=== PATIENT | female | born 1960 | race Two or more races ===

== ENCOUNTER 2017-05-09 21:20 | Inpatient (IN) | payer MEDICAID ==
[~2017-05-09] VITALS: Ht 157.5 cm; Wt 77.1 kg
--- NOTE | 2017-05-09 21:28 | Emergency Room Report ---
History of Present Illness General Chief Complaint: Abnormal Labs Source: Medical Record, EMS Present Illness HPI Is a 57-year-old female coming from a alf. She has a history of schizophrenia with history of respiratory failure status post tracheostomy. Also with a feeding tube. Her tracheostomy was removed earlier this week. Her G-tube was removed today. The reason was because she keeps pulling it out. She was sent in for abnormal labs. Her BUN was elevated and her sodium was very high. Unable to get any other history from the patient. No fever chills but no nausea no vomiting. Allergies: Coded Allergies: No Known Allergies (Unverified , 05/09/17) Patient History Past Medical History: see triage record, old chart reviewed, psych hx Past Surgical History: other Pertinent Family History: none Social History: Denies: smoking Now: No Immunizations: other Reviewed Nursing Documentation: PMH: Agreed, PSxH: Agreed Nursing Documentation-PMH Hx Hypertension: Yes Hx Diabetes: Yes History Of Psychiatric Problem: Yes - SCHIZO Review of Systems Eye: Denies: eye pain, blurred vision ENT: Denies: ear pain, nose congestion, throat swelling Respiratory: Denies: cough, shortness of breath Cardiovascular: Denies: chest pain, palpitations Gastrointestinal: Denies: abdominal pain, diarrhea, nausea, vomiting Musculoskeletal: Denies: back pain, joint pain Skin: Denies: rash Neurological: Denies: headache, numbness Endocrine: Denies: increased thirst, increased urine Hematologic/Lymphatic: Denies: easy bruising All Other Systems: negative except mentioned in HPI Physical Exam Vital Signs Date Time Temp Pulse Resp B/P (MAP) Pulse Ox O2 Delivery O2 Flow Rate FiO2 05/09/17 21:14 97.9 91 24 119/68 93 Room Air vitals normal Sp02 EP Interpretation: reviewed, normal General Appearance: well appearing, no apparent distress, alert Head: normocephalic, atraumatic Eyes: bilateral eye PERRL, bilateral eye EOMI ENT: hearing grossly normal, normal pharynx Neck: full range of motion, supple, no meningismus Respiratory: chest non-tender, lungs clear, normal breath sounds Cardiovascular #1: regular rate, rhythm, no murmur Gastrointestinal: normal bowel sounds, non tender, no mass, no organomegaly, no bruit, non-distended, other - G-tube site intact. Musculoskeletal: back normal, normal range of motion Neurologic: alert Psychiatric: mood/affect normal Skin: warm/dry Procedures Additional Procedure Procedure Narrative Procedure: G-tube placement Indication: Need for hydration and medication Description: Using a bougie, I dilated the opening. I placed a 20 Vietnamese G- tube without any difficulty. Patient tolerated procedure without a problem. X- ray with Gastrografin done to confirm placement. Medical Decision Making Diagnostic Impression: Primary Impression: Dehydration Additional Impressions: UTI (urinary tract infection) Qualified Codes: N30.00 - Acute cystitis without hematuria Failure to thrive in adult Proteinuria Qualified Codes: R80.9 - Proteinuria, unspecified Anemia Qualified Codes: D64.9 - Anemia, unspecified Gastrostomy tube dysfunction ER Course Present with dehydration. I replaced the G-tube so she can get free fluid. No evidence of obstruction. She does have urinary tract infection. Antibiotic started. Will admit. Lab Results Impression labs with elevated sodium Other X-Ray Diagnostic Results Other X-Ray Diagnostic Results : X-Ray ordered: KUB # of Views/Limited Vs Complete: 1 View Indication: Other - G-tube placement EP Interpretation: Yes Interpretation: no dislocation, no soft tissue swelling, nonspecific bowel gas, other - No extravasation. Impression: Other - G-tube in good position. Electronically Signed by: Electronically signed by Pramod Alcocer MD Last Vital Signs Date Time Temp Pulse Resp B/P (MAP) Pulse Ox O2 Delivery O2 Flow Rate FiO2 05/09/17 21:14 97.9 91 24 119/68 93 Room Air Status: improved Disposition: ADMITTED INPATIENT Condition: Serious PRAMOD ALCOCER M.D. May 09, 2017 21:28
[2017-05-09 21:41] VITALS: BP 105/61
[2017-05-09 21:57] LABS: LYMPHOCYTES % (AUTO) 15.1 % (20.0-45.0); MEAN CORPUSCULAR HEMOGLOBIN 29.5 PG (27.0-31.0); MEAN CORPUSCULAR HGB CONC 28.2 G/DL (32.0-36.0); MEAN CORPUSCULAR VOLUME 105 FL (80-99); MEAN PLATELET VOLUME 9.4 FL (6.5-10.1); MONOCYTES % (AUTO) 9.9 % (1.0-10.0); PLATELET COUNT 348 K/UL (150-450); RED BLOOD COUNT 3.94 M/UL (4.20-5.40); RED CELL DISTRIBUTION WIDTH 18.2 % (11.6-14.8); WHITE BLOOD COUNT 6.7 K/UL (4.8-10.8)
[2017-05-09 22:17] LABS: ANION GAP 6 mmol/L (5-15); CALCIUM 10.2 MG/DL (8.5-10.1); CARBON DIOXIDE 32 MMOL/L (21-32); CHLORIDE 122 MMOL/L (98-107); CREATININE 1.4 MG/DL (0.55-1.30); GLOMERULAR FILTRATION RATE 38.5 mL/min (>60); SODIUM 159 MMOL/L (136-145)
[2017-05-09] MEDS ORDERED: COGENTIN1 MG ORAL (22:18)
[2017-05-09] MEDS ORDERED: EPOGEN4000 UNIT/ SUBQ (22:18)
[2017-05-09] MEDS ORDERED: ATIVAN1 MG ORAL (22:18)
[2017-05-09] MEDS ORDERED: DULCOLAX10 MG RC (22:18)
[2017-05-09 22:47] LABS: KETONES,URINE NEGATIVE (NEGATIVE); LEUKOCYTE ESTERASE ,URINE 3+ (NEGATIVE); NITRITE,URINE POSITIVE (NEGATIVE); PH,URINE 7 (4.5-8.0); PROTEIN,URINE 2+ (NEGATIVE); UROBILINOGEN,URINE NORMAL MG/DL (0.0-1.0)
[2017-05-09 22:50] LABS: AMORPHOUS SEDIMENT,UR FEW /LPF; APPEARANCE,URINE SLIGHTLY CLOUDY; BACTERIA,URINE MODERATE /HPF; SQUAMOUS EPITHELIAL CELL,UR FEW /LPF (NONE/OCC)
[2017-05-09] MEDS ORDERED: cefTRIAXone 1 GM in NS 55 ML IVPB ONE (23:00)
[2017-05-09] MEDS ORDERED: UTI-STAT L3875 MG/31 PO (23:10)
[2017-05-09] MEDS ORDERED: MILK OF MA2400 MG/10 ORAL (23:10)
[2017-05-09] MEDS ORDERED: MULTI-DELYN237 ML PO (23:10)
[2017-05-09] MEDS ORDERED: POTASSIUM CHLO20 ME1 ORAL (23:10)
[2017-05-09] MEDS ORDERED: HALDOL5 MG/1 ML IM (23:10)
[2017-05-09] MEDS ORDERED: OMEPRAZOLE20 M2 ORAL (23:10)
[2017-05-09] MEDS ORDERED: VITAMIN C500 M1 ORAL (23:10)
[2017-05-09] MEDS ORDERED: LITHIUM CARBON300 MG ORAL (23:10)
[2017-05-09] MEDS ORDERED: LACTULOSE20 GM/301 ORAL (23:10)
[2017-05-09] MEDS ORDERED: ACETAMINOP160 MG/5 M ORAL (23:10)
[2017-05-09] MEDS ORDERED: METOPROLOL TART50 MG ORAL (23:10)
[2017-05-09] MEDS ORDERED: SEROQUEL200 MG ORAL (23:10)
[2017-05-09] MEDS ORDERED: FLEET ENEMA133 ML RECTAL (23:10)
[2017-05-09] MEDS ORDERED: ZINC SULFATE220 M1 ORAL (23:10)
[2017-05-09 23:16] VITALS: BP 116/59
[2017-05-09 23:40] VITALS: BP 125/86
[2017-05-09] MEDS ORDERED: D5 1/2NS 1,000 ML IV SCH (23:48)
[2017-05-10] MEDS ORDERED: LORazepam Inj 2mg/ml 1ml IV PRN
[2017-05-10 04:00] VITALS: BP 140/77
[2017-05-10] MEDS ORDERED: Piperacillin/Tazobactam 3.375 GM in NS 110 ML IVPB SCH (06:00)
[2017-05-10] MEDS: NovoLOG Insulin Flexpen SUBQ SCH ×4 (06:18→20:55)
[2017-05-10] MEDS ORDERED: Zosyn 3.375gm inj ONE (06:20)
[2017-05-10 08:05] LABS: BASOPHILS % (AUTO) 1.1 % (0.0-2.0); EOSINOPHILS % (AUTO) 0.1 % (0.0-3.0); LYMPHOCYTES % (AUTO) 16.4 % (20.0-45.0); MEAN CORPUSCULAR HEMOGLOBIN 30.3 PG (27.0-31.0); MEAN CORPUSCULAR HGB CONC 29.3 G/DL (32.0-36.0); MEAN CORPUSCULAR VOLUME 103 FL (80-99); MEAN PLATELET VOLUME 9.1 FL (6.5-10.1); MONOCYTES % (AUTO) 9.4 % (1.0-10.0); PLATELET COUNT 325 K/UL (150-450); RED BLOOD COUNT 3.92 M/UL (4.20-5.40); RED CELL DISTRIBUTION WIDTH 18.6 % (11.6-14.8); WHITE BLOOD COUNT 7.2 K/UL (4.8-10.8)
[2017-05-10 08:29] LABS: ALANINE AMINOTRANSFERASE 43 U/L (12-78); ALBUMIN/GLOBULIN RATIO 0.6 (1.0-2.7); ANION GAP 8 mmol/L (5-15); ASPARTATE AMINO TRANSFERASE 12 U/L (15-37); CALCIUM 9.7 MG/DL (8.5-10.1); CARBON DIOXIDE 28 MMOL/L (21-32); CHLORIDE 127 MMOL/L (98-107); CREATININE 1.1 MG/DL (0.55-1.30); GLOMERULAR FILTRATION RATE 50.8 mL/min (>60); POTASSIUM 3.7 MMOL/L (3.5-5.1); TOTAL PROTEIN 7.3 G/DL (6.4-8.2)
[2017-05-10 08:33] LABS: SODIUM 163 MMOL/L (136-145)
[2017-05-10 08:36] VITALS: BP 139/76
[2017-05-10] MEDS: QUEtiapine 200mg tab ORAL SCH ×3 (09:09→17:10)
[2017-05-10] MEDS: Heparin 5000 units/ml inj SUBQ SCH ×2 (09:12→21:01)
--- NOTE | 2017-05-10 10:51 | Diagnostic Imaging Report ---
Indication: Gastrostomy tract Comparison: None Single view of the abdomen obtained Findings: Gastrostomy is in good position within the body the stomach. Contrast noted within the stomach and proximal small bowel. Previously administered contrast noted in the colon. Impression: Appropriate gastrostomy position. No leak
--- NOTE | 2017-05-10 11:58 | History and Physical ---
History of Present Illness General Date patient seen: May 10, 2017 Reason for Hospitalization: Abnormal Labs Present Illness HPI 57-year-old female with hx of s/p recent tracheostomy, PEG, residential resident, schizophrenia, feeding tube. Her tracheostomy was removed earlier this week. Her G-tube was removed as well . The reason was because she keeps pulling it out. She was sent in for abnormal labs. Her BUN was elevated and her sodium was very high. Pt is admitted because of acute renal failure. ER physician put the feeding tube in ER and she is admitted for treatment of her ATN. Allergies: Coded Allergies: No Known Allergies (Unverified , 05/09/17) Medication History Scheduled Ascorbic Acid* (Vitamin C*), 500 MG ORAL DAILY, (Reported) Benztropine Mesylate (Cogentin 1mg*), 1 MG ORAL EVERY 12 HOURS, (Reported) Cran/Vitc/Mannose/Inulin/Brom (Uti-Stat Liquid), 30 ML PO DAILY, (Reported) Epoetin Bogdan (Epogen), 4,000 UNIT SUBQ --, (Reported) Haloperidol Lactate (Haldol), 5 MG IM EVERY 8 HOURS, (Reported) [place] Carbonate* ([place]*), 300 MG ORAL BID, (Reported) Metoprolol Tartrate* (Metoprolol Tartrate*), 50 MG ORAL EVERY 12 HOURS, ( Reported) Multivitamin Liquid* (Multi-Delyn*), 15 ML PO DAILY, (Reported) Omeprazole (Omeprazole), 20 MG ORAL DAILY, (Reported) Potassium Chloride* (K-Dur*), 20 MEQ ORAL DAILY, (Reported) Quetiapine Fumarate* (Seroquel*), 200 MG ORAL THREE TIMES A DAY, (Reported) Zinc Sulfate (Zinc Sulfate*), 220 MG ORAL DAILY, (Reported) Scheduled PRN Acetaminophen 160MG/5ML* (Acetaminophen*), 20 ML ORAL EVERY 4 HOURS PRN for fever, (Reported) Bisacodyl (Dulcolax), 10 MG RC for Constipation, (Reported) Lactulose (Lactulose*), 30 ML ORAL BID PRN for Constipation, (Reported) Lorazepam* (Ativan*), 1 MG ORAL EVERY 6 HOURS PRN for For Anxiety, (Reported) Magnesium Hydroxide* (Milk Of Magnesia*), 30 ML ORAL BEDTIME PRN for Constipation, (Reported) Na Phos,M-B/Na Phos,Di-Ba* (Fleet Enema*), 133 ML RECTAL DAILY PRN for Constipation, (Reported) Patient History Healthcare decision maker Resuscitation status Full Code Advanced Directive on File Past Medical/Surgical History Past Medical/Surgical History: (1) Gastrostomy tube dysfunction Review of Systems Constitutional: Reports: no symptoms Eye: Reports: discharge ENT: Reports: no symptoms Respiratory: Reports: no symptoms Physical Exam General Appearance: WD/WN Lines, tubes and drains: peripheral, central line HEENT: normocephalic, atraumatic Neck: non-tender, normal alignment Respiratory/Chest: chest wall non-tender, lungs clear Cardiovascular/Chest: normal peripheral pulses, normal rate Abdomen: normal bowel sounds Genitourinary/Rectal: normal genital exam Extremities: normal range of motion 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 Last 24 Hour Vital Signs Date Time Temp Pulse Resp B/P (MAP) Pulse Ox O2 Delivery O2 Flow Rate FiO2 05/10/17 08:36 98.3 89 19 139/76 94 Room Air 05/10/17 04:00 97.7 96 19 140/77 96 Room Air 05/09/17 23:40 98.0 89 18 125/86 95 Room Air 05/09/17 23:22 97.9 84 20 116/59 98 Room Air 05/09/17 23:16 97.9 84 20 116/59 98 Room Air 05/09/17 21:41 97.9 88 24 105/61 98 Room Air 05/09/17 21:14 97.9 91 24 119/68 93 Room Air Laboratory Tests Test 05/09/17 21:30 05/09/17 22:28 05/10/17 07:45 White Blood Count 6.7 K/UL (4.8-10.8) 7.2 K/UL (4.8-10.8) Red Blood Count 3.94 M/UL (4.20-5.40) L 3.92 M/UL (4.20-5.40) L Hemoglobin 11.6 G/DL (12.0-16.0) L 11.9 G/DL (12.0-16.0) L Hematocrit 41.1 % (37.0-47.0) 40.5 % (37.0-47.0) Mean Corpuscular Volume 105 FL (80-99) H 103 FL (80-99) H Mean Corpuscular Hemoglobin 29.5 PG (27.0-31.0) 30.3 PG (27.0-31.0) Mean Corpuscular Hemoglobin Concent 28.2 G/DL (32.0-36.0) L 29.3 G/DL (32.0-36.0) L Red Cell Distribution Width 18.2 % (11.6-14.8) H 18.6 % (11.6-14.8) H Platelet Count 348 K/UL (150-450) 325 K/UL (150-450) Mean Platelet Volume 9.4 FL (6.5-10.1) 9.1 FL (6.5-10.1) Neutrophils (%) (Auto) 74.0 % (45.0-75.0) 73.0 % (45.0-75.0) Lymphocytes (%) (Auto) 15.1 % (20.0-45.0) L 16.4 % (20.0-45.0) L Monocytes (%) (Auto) 9.9 % (1.0-10.0) 9.4 % (1.0-10.0) Eosinophils (%) (Auto) 0.0 % (0.0-3.0) 0.1 % (0.0-3.0) Basophils (%) (Auto) 1.0 % (0.0-2.0) 1.1 % (0.0-2.0) Sodium Level 159 MMOL/L (136-145) H 163 MMOL/L (136-145) *H Potassium Level 4.0 MMOL/L (3.5-5.1) 3.7 MMOL/L (3.5-5.1) Chloride Level 122 MMOL/L (98-107) H 127 MMOL/L (98-107) H Carbon Dioxide Level 32 MMOL/L (21-32) 28 MMOL/L (21-32) Anion Gap 6 mmol/L (5-15) 8 mmol/L (5-15) Blood Urea Nitrogen 49 mg/dL (7-18) H 34 mg/dL (7-18) H Creatinine 1.4 MG/DL (0.55-1.30) H 1.1 MG/DL (0.55-1.30) Estimat Glomerular Filtration Rate 38.5 mL/min (>60) 50.8 mL/min (>60) Glucose Level 115 MG/DL (74-106) H 110 MG/DL (74-106) H Calcium Level 10.2 MG/DL (8.5-10.1) H 9.7 MG/DL (8.5-10.1) Urine Color Yellow Urine Appearance Slightly cloudy Urine pH 7 (4.5-8.0) Urine Specific [place] 1.010 (1.005-1.035) Urine Protein 2+ (NEGATIVE) H Urine Glucose (UA) Negative (NEGATIVE) Urine Ketones Negative (NEGATIVE) Urine Occult Blood 2+ (NEGATIVE) H Urine Nitrite Positive (NEGATIVE) H Urine Bilirubin Negative (NEGATIVE) Urine Urobilinogen Normal MG/DL (0.0-1.0) Urine Leukocyte Esterase 3+ (NEGATIVE) H Urine RBC 5-10 /HPF (0 - 2) H Urine WBC 10-15 /HPF (0 - 2) H Urine Squamous Epithelial Cells Few /LPF (NONE/OCC) Urine Amorphous Sediment Few /LPF (NONE) H Urine Bacteria Moderate /HPF (NONE) H Hemoglobin A1c 4.6 % (4.3-6.0) Total Bilirubin 0.4 MG/DL (0.2-1.0) Aspartate Amino Transf (AST/SGOT) 12 U/L (15-37) L Alanine Aminotransferase (ALT/SGPT) 43 U/L (12-78) Alkaline Phosphatase 142 U/L (46-116) H Total Protein 7.3 G/DL (6.4-8.2) Albumin 2.7 G/DL (3.4-5.0) L Globulin 4.6 g/dL Albumin/Globulin Ratio 0.6 (1.0-2.7) L Height (Feet): 5 Height (Inches): 2.00 Weight (Pounds): 170 Medications Current Medications Medications (Trade) Dose Ordered Sig/Robert Route PRN Reason Start Time Stop Time Status Last Admin Dose Admin Dextrose (Dextrose 50%) STAT PRN IV Hypoglycemia 05/10/17 02:30 06/09/17 02:29 Dextrose/Sodium Chloride 1,000 ml @ 150 mls/hr Q6H40M IV 05/10/17 23:48 06/09/17 23:47 05/10/17 03:00 Heparin Sodium (Porcine) (Heparin 5000 units/ml) 5,000 units EVERY 12 HOURS SUBQ 05/10/17 09:00 06/09/17 08:59 05/10/17 09:12 Insulin Aspart (NovoLOG) BEFORE MEALS AND HS SUBQ 05/10/17 06:30 06/09/17 06:29 [place] Carbonate ([place] Carbonate) 300 mg BID ORAL 05/10/17 09:00 06/09/17 08:59 05/10/17 09:09 Lorazepam (Ativan 2mg/ml 1ml) 0.5 mg Q4H PRN IV For Anxiety 05/10/17 00:00 05/17/17 00:00 Ondansetron HCl (Zofran) 4 mg Q6H PRN IVP Nausea & Vomiting 05/10/17 00:00 06/09/17 00:00 Piperacillin/ Tazobactam/ Dextrose 50 ml @ 12.5 mls/hr EVERY 8 HOURS IVPB 05/10/17 14:00 05/15/17 13:59 Quetiapine Fumarate (SEROquel) 200 mg THREE TIMES A DAY ORAL 05/10/17 09:00 06/09/17 08:59 05/10/17 09:09 Assessment/Plan Problem List: (1) ATN (acute tubular necrosis) ICD Codes: N17.0 - Acute kidney failure with tubular necrosis SNOMED: 07733251 (2) Schizo-affective schizophrenia ICD Codes: F25.0 - Schizoaffective disorder, bipolar type SNOMED: 064188487 (3) Gastrostomy tube dysfunction ICD Codes: K94.23 - Gastrostomy malfunction SNOMED: 868381658 (4) UTI (urinary tract infection) ICD Codes: N39.0 - Urinary tract infection, site not specified SNOMED: 34682776 Qualifiers: Qualified Codes: N30.00 - Acute cystitis without hematuria Assessment/Plan IV fluids Renal evaluation check electrolytes GI and psych evaluation ANYI ALEGRIA May 10, 2017 11:58
[2017-05-10 12:00] VITALS: BP 136/78
--- NOTE | 2017-05-10 13:07 | GI Initial Consult Note ---
History of Present Illness General Date patient seen: May 10, 2017 Time patient seen: 10:00 Reason for Hospitalization: Abnormal Labs Referring physician: ANYI JEWELL Reason for Consultation: GT CHANGE Present Illness HPI Is a 57-year-old female coming from a [facility]. She has a history of schizophrenia with history of respiratory failure status post tracheostomy. Also with a feeding tube. Her tracheostomy was removed earlier this week. Her G-tube was removed today. The reason was because she keeps pulling it out. She was sent in for abnormal labs. Her BUN was elevated and her sodium was very high. Unable to get any other history from the patient. No fever chills but no nausea no vomiting. GI consulted for GT change. HPI as noted above. ROS limited, Pt seen on floor , awake alert with no active s/sx of N/V/D. Noted GT changed in ER confirmed with KUB. She presents today with mild anemia, hypernatremia and dehydration. Unknown history of colonoscopies. Home Meds Reported Medications Haloperidol Lactate (HALDOL) 5 Mg/1 Ml Ampul, 5 MG IM EVERY 8 HOURS, AMP 05/09/17 Quetiapine Fumarate* (SEROQUEL*) 200 Mg Tablet, 200 MG ORAL THREE TIMES A DAY, TAB 05/09/17 Zinc Sulfate (ZINC SULFATE*) 220 Mg Capsule, 220 MG ORAL DAILY, CAP 0 Refills 05/09/17 Ascorbic Acid* (VITAMIN C*) 500 Mg Tablet, 500 MG ORAL DAILY, TAB 0 Refills 05/09/17 Cran/Vitc/Mannose/Inulin/Brom (UTI-STAT LIQUID) 3,875 Mg/30 Ml Liquid, 30 ML PO DAILY, ML 05/09/17 Acetaminophen 160MG/5ML* (ACETAMINOPHEN*) 160 Mg/5 Ml Elixir, 20 ML ORAL EVERY 4 HOURS Y for fever, ML 0 Refills 05/09/17 Potassium Chloride* (K-DUR*) 20 Meq Tab.er.prt, 20 MEQ ORAL DAILY, TAB 0 Refills 05/09/17 Omeprazole (OMEPRAZOLE) 20 Mg Capsule.dr, 20 MG ORAL DAILY, CAP 05/09/17 Multivitamin Liquid* (MULTI-DELYN*) 237 Ml Liquid, 15 ML PO DAILY, ML 05/09/17 Magnesium Hydroxide* (MILK OF MAGNESIA*) 2,400 Mg/10 Ml Oral.susp, 30 ML ORAL BEDTIME Y for Constipation, ML 05/09/17 Metoprolol Tartrate* (METOPROLOL TARTRATE*) 50 Mg Tablet, 50 MG ORAL EVERY 12 HOURS, TAB 0 Refills 05/09/17 [place] Carbonate* (LITHIUM*) 300 Mg Capsule, 300 MG ORAL BID, CAP 0 Refills 05/09/17 Lactulose (LACTULOSE*) 20 Gm/30 Ml Solution, 30 ML ORAL BID Y for Constipation, ML 0 Refills 05/09/17 Na Phos,M-B/Na Phos,Di-Ba* (FLEET ENEMA*) 133 Ml Enema, 133 ML RECTAL DAILY Y for Constipation, ML 0 Refills 05/09/17 Epoetin Bogdan (Epogen) 4,000 Unit/1 Ml Vial, 4000 UNIT SUBQ M-W-, VIAL 05/09/17 Bisacodyl (DULCOLAX) 10 Mg Supp.rect, 10 MG RC Y for Constipation, SUPP 05/09/17 Benztropine Mesylate (Cogentin 1mg*) 1 Mg Tablet, 1 MG ORAL EVERY 12 HOURS, TAB 05/09/17 Lorazepam* (ATIVAN*) 1 Mg Tablet, 1 MG ORAL EVERY 6 HOURS Y for For Anxiety, TAB 05/09/17 Med list reviewed/reconciled: Yes Allergies: Coded Allergies: No Known Allergies (Unverified , 05/09/17) Patient History History Provided By: Medical Record PMH Narrative Past Medical History: see triage record, old chart reviewed, psych hx Past Surgical History: other Pertinent Family History: none Social History: Denies: smoking Now: No Immunizations: other Reviewed Nursing Documentation: PMH: Agreed, PSxH: Agreed Nursing Documentation-PMH Hx Hypertension: Yes Hx Diabetes: Yes History Of Psychiatric Problem: Yes - SCHIZO Review of Systems All Other Systems: limited Physical Exam Vital Signs Date Time Temp Pulse Resp B/P (MAP) Pulse Ox O2 Delivery O2 Flow Rate FiO2 05/09/17 21:14 97.9 91 24 119/68 93 Room Air Sp02 EP Interpretation: reviewed, normal Labs Laboratory Tests Test 05/09/17 21:30 05/09/17 22:28 05/10/17 07:45 White Blood Count 6.7 K/UL (4.8-10.8) 7.2 K/UL (4.8-10.8) Red Blood Count 3.94 M/UL (4.20-5.40) L 3.92 M/UL (4.20-5.40) L Hemoglobin 11.6 G/DL (12.0-16.0) L 11.9 G/DL (12.0-16.0) L Hematocrit 41.1 % (37.0-47.0) 40.5 % (37.0-47.0) Mean Corpuscular Volume 105 FL (80-99) H 103 FL (80-99) H Mean Corpuscular Hemoglobin 29.5 PG (27.0-31.0) 30.3 PG (27.0-31.0) Mean Corpuscular Hemoglobin Concent 28.2 G/DL (32.0-36.0) L 29.3 G/DL (32.0-36.0) L Red Cell Distribution Width 18.2 % (11.6-14.8) H 18.6 % (11.6-14.8) H Platelet Count 348 K/UL (150-450) 325 K/UL (150-450) Mean Platelet Volume 9.4 FL (6.5-10.1) 9.1 FL (6.5-10.1) Neutrophils (%) (Auto) 74.0 % (45.0-75.0) 73.0 % (45.0-75.0) Lymphocytes (%) (Auto) 15.1 % (20.0-45.0) L 16.4 % (20.0-45.0) L Monocytes (%) (Auto) 9.9 % (1.0-10.0) 9.4 % (1.0-10.0) Eosinophils (%) (Auto) 0.0 % (0.0-3.0) 0.1 % (0.0-3.0) Basophils (%) (Auto) 1.0 % (0.0-2.0) 1.1 % (0.0-2.0) Sodium Level 159 MMOL/L (136-145) H 163 MMOL/L (136-145) *H Potassium Level 4.0 MMOL/L (3.5-5.1) 3.7 MMOL/L (3.5-5.1) Chloride Level 122 MMOL/L (98-107) H 127 MMOL/L (98-107) H Carbon Dioxide Level 32 MMOL/L (21-32) 28 MMOL/L (21-32) Anion Gap 6 mmol/L (5-15) 8 mmol/L (5-15) Blood Urea Nitrogen 49 mg/dL (7-18) H 34 mg/dL (7-18) H Creatinine 1.4 MG/DL (0.55-1.30) H 1.1 MG/DL (0.55-1.30) Estimat Glomerular Filtration Rate 38.5 mL/min (>60) 50.8 mL/min (>60) Glucose Level 115 MG/DL (74-106) H 110 MG/DL (74-106) H Calcium Level 10.2 MG/DL (8.5-10.1) H 9.7 MG/DL (8.5-10.1) Urine Color Yellow Urine Appearance Slightly cloudy Urine pH 7 (4.5-8.0) Urine Specific [place] 1.010 (1.005-1.035) Urine Protein 2+ (NEGATIVE) H Urine Glucose (UA) Negative (NEGATIVE) Urine Ketones Negative (NEGATIVE) Urine Occult Blood 2+ (NEGATIVE) H Urine Nitrite Positive (NEGATIVE) H Urine Bilirubin Negative (NEGATIVE) Urine Urobilinogen Normal MG/DL (0.0-1.0) Urine Leukocyte Esterase 3+ (NEGATIVE) H Urine RBC 5-10 /HPF (0 - 2) H Urine WBC 10-15 /HPF (0 - 2) H Urine Squamous Epithelial Cells Few /LPF (NONE/OCC) Urine Amorphous Sediment Few /LPF (NONE) H Urine Bacteria Moderate /HPF (NONE) H Hemoglobin A1c 4.6 % (4.3-6.0) Total Bilirubin 0.4 MG/DL (0.2-1.0) Aspartate Amino Transf (AST/SGOT) 12 U/L (15-37) L Alanine Aminotransferase (ALT/SGPT) 43 U/L (12-78) Alkaline Phosphatase 142 U/L (46-116) H Total Protein 7.3 G/DL (6.4-8.2) Albumin 2.7 G/DL (3.4-5.0) L Globulin 4.6 g/dL Albumin/Globulin Ratio 0.6 (1.0-2.7) L General Appearance: no apparent distress, alert Head: normocephalic EENT: PERRL/EOMI, normal ENT inspection Neck: supple Respiratory: normal breath sounds, no respiratory distress Cardiovascular: normal rate Gastrointestinal: normal inspection, non tender, soft, normal bowel sounds, non -distended Rectal: deferred Genitourinary: no CVA tenderness Musculoskeletal: normal inspection Neurologic: alert, responsive Skin: normal inspection, normal color, no rash, warm/dry, palpation normal, well hydrated Lymphatic: normal inspection, no adenopathy Current Medications Current Medications Medications (Trade) Dose Ordered Sig/Robert Route PRN Reason Start Time Stop Time Status Last Admin Dose Admin Dextrose (Dextrose 50%) STAT PRN IV Hypoglycemia 05/10/17 02:30 06/09/17 02:29 Dextrose/Sodium Chloride 1,000 ml @ 150 mls/hr Q6H40M IV 05/10/17 23:48 06/09/17 23:47 05/10/17 03:00 Heparin Sodium (Porcine) (Heparin 5000 units/ml) 5,000 units EVERY 12 HOURS SUBQ 05/10/17 09:00 06/09/17 08:59 05/10/17 09:12 Insulin Aspart (NovoLOG) BEFORE MEALS AND HS SUBQ 05/10/17 06:30 06/09/17 06:29 [place] Carbonate ([place] Carbonate) 300 mg BID ORAL 05/10/17 09:00 06/09/17 08:59 05/10/17 09:09 Lorazepam (Ativan 2mg/ml 1ml) 0.5 mg Q4H PRN IV For Anxiety 05/10/17 00:00 05/17/17 00:00 Ondansetron HCl (Zofran) 4 mg Q6H PRN IVP Nausea & Vomiting 05/10/17 00:00 06/09/17 00:00 Piperacillin/ Tazobactam/ Dextrose 50 ml @ 12.5 mls/hr EVERY 8 HOURS IVPB 05/10/17 14:00 05/15/17 13:59 Quetiapine Fumarate (SEROquel) 200 mg THREE TIMES A DAY ORAL 05/10/17 09:00 06/09/17 08:59 05/10/17 09:09 GI: Plan Problems: (1) Schizo-affective schizophrenia (2) Dehydration (3) Gastrostomy tube dysfunction (4) Failure to thrive in adult (5) Proteinuria (6) Anemia Plan ST evaluation for PO GT changed, ok to start GTFs per dietary frequent turn q2-4 hours anemia work up OB stool r/o GI bleed monitor H&H, prn transfusions bowel regime electrolyte correction ppi fu labs Discussed with Dr. Elizabeth. Thank you for this patient referral, we will follow. Eva Alcocer N.P. May 10, 2017 13:07
[2017-05-10] MEDS: Docusate 100mg cap ORAL SCH ×2 (13:51→17:12)
[2017-05-10] MEDS: Zosyn 3.375gm q8h **Extended infusion IVPB SCH (15:05)
--- NOTE | 2017-05-10 15:43 | Consultation ---
Consult Note Consult Note Is a 57-year-old female coming from a [facility]. She has a history of schizophrenia with history of respiratory failure status post tracheostomy. Also with a feeding tube. Her tracheostomy was removed earlier this week. Her G-tube was removed today. The reason was because she keeps pulling it out. She was sent in for abnormal labs. Her BUN was elevated and her sodium was very high. Unable to get any other history from the patient. No fever chills but no nausea no vomiting. Hx Hypertension: Yes Hx Diabetes: Yes History Of Psychiatric Problem: Yes - SCHIZO Assessment/Plan status: (1) Acte renal failure- dehydration (2) Schizo-affective schizophrenia (3) Gastrostomy tube dysfunction (4) UTI (urinary tract infection) (5) Failure to Thrive (6) Anemia Plan: hydrate- Monitor lytes- Urine studies- per Psych ATILIO GARCIA May 10, 2017 15:43
[2017-05-10 16:16] VITALS: BP 142/92
--- NOTE | 2017-05-10 16:32 | Consultation ---
Consult Note Consult Note [id number] CHIQUI ROONEY M.D. May 10, 2017 16:32
--- NOTE | 2017-05-10 19:45 | Consultation ---
DATE OF CONSULTATION: 05/10/2017 INFECTIOUS DISEASE CONSULTATION CONSULTING PHYSICIAN: Brandon Jacobs M.D. REFERRING PHYSICIAN: Fanny Kaba M.D. REASON FOR CONSULTATION: Evaluation of the patient for possible sepsis, UTI, and antibiotic management. HISTORY OF PRESENT ILLNESS: The patient is a 57-year-old female with multiple medical problems, who was admitted to this medical center with general weakness and possible urinary tract infection. Infectious Disease consultation has been requested for further evaluation of the patient and antibiotic management. PAST MEDICAL HISTORY: 1. Hypertension. 2. Status post trach that was removed on 05/07/2017. 3. GERD. 4. Diabetes. 5. Schizophrenia/bipolar disorder. MEDICATIONS: Zosyn. ALLERGIES: No known drug allergies. SOCIAL HISTORY: The patient lives in correction. FAMILY HISTORY: Unavailable. REVIEW OF SYSTEMS: Unobtainable. PHYSICAL EXAMINATION: VITAL SIGNS: Temperature 98.4 degrees, pulse 86, respiratory rate 18, and blood pressure 142/92. HEENT: No pale conjunctivae. No icterus. NECK: No lymphadenopathy. CHEST: Clear. HEART: S1 and S2. ABDOMEN: Soft. EXTREMITY: No cyanosis. NEUROLOGIC: Awake and confused. LABORATORY DATA: White blood cells 7.2, hemoglobin 11.5, and platelets 322,000. UA, 10 to 15 white blood cells. BUN 34 and creatinine 1. Alkaline phosphatase 142. ALT and AST are unremarkable. Abdominal x-ray showed evidence of PEG tube in place. ASSESSMENT: The patient is a 57-year-old female with: 1. Pyuria/possible urinary tract infection. 2. Lethargicness. PLAN: 1. We will continue the patient on IV Zosyn. 2. Monitor CBC. 3. Monitor BMP. 4. Monitor urine culture. 5. Monitor the patient's clinical course and laboratories and based on those, we will do further recommendation. Thank you, Dr. Kaba, for allowing me to participate in the care of this patient. I will follow the patient with you during this hospitalization. Brandon Jacobs M.D. DR: HILDA JOB#: [id number] CC:
[2017-05-10 20:00] VITALS: BP 152/78
[2017-05-10] MEDS: Miralax 17gm pkt ORAL SCH (20:55)
[2017-05-10] MEDS ORDERED: D5 1/2NS 1,000 ML IV SCH (23:48)
[2017-05-11 00:14] VITALS: BP 146/77
[2017-05-11] MEDS: Zosyn 3.375gm q8h **Extended infusion IVPB SCH ×4 (00:38→21:55)
--- NOTE | 2017-05-11 00:46 | Consultation ---
History of Present Illness General Date patient seen: May 10, 2017 Chief Complaint: Abnormal Labs Referring physician: ANYI JEWELL Reason for Consultation: GT CHANGE Present Illness HPI 57-year-old female with hx of schizoaffective d/o and multiple medical problems , who was admitted to this medical center with general weakness and possible urinary tract infection. the pt also found to be dehydrated. the pt is currently stable. Allergies: Coded Allergies: No Known Allergies (Unverified , 05/09/17) Medication History Scheduled Ascorbic Acid* (Vitamin C*), 500 MG ORAL DAILY, (Reported) Benztropine Mesylate (Cogentin 1mg*), 1 MG ORAL EVERY 12 HOURS, (Reported) Cran/Vitc/Mannose/Inulin/Brom (Uti-Stat Liquid), 30 ML PO DAILY, (Reported) Epoetin Bogdan (Epogen), 4,000 UNIT SUBQ -W-, (Reported) Haloperidol Lactate (Haldol), 5 MG IM EVERY 8 HOURS, (Reported) Swe[place]er Carbonate* (Sweetser*), 300 MG ORAL BID, (Reported) Metoprolol Tartrate* (Metoprolol Tartrate*), 50 MG ORAL EVERY 12 HOURS, ( Reported) Multivitamin Liquid* (Multi-Delyn*), 15 ML PO DAILY, (Reported) Omeprazole (Omeprazole), 20 MG ORAL DAILY, (Reported) Potassium Chloride* (K-Dur*), 20 MEQ ORAL DAILY, (Reported) Quetiapine Fumarate* (Seroquel*), 200 MG ORAL THREE TIMES A DAY, (Reported) Zinc Sulfate (Zinc Sulfate*), 220 MG ORAL DAILY, (Reported) Scheduled PRN Acetaminophen 160MG/5ML* (Acetaminophen*), 20 ML ORAL EVERY 4 HOURS PRN for fever, (Reported) Bisacodyl (Dulcolax), 10 MG RC for Constipation, (Reported) Lactulose (Lactulose*), 30 ML ORAL BID PRN for Constipation, (Reported) Lorazepam* (Ativan*), 1 MG ORAL EVERY 6 HOURS PRN for For Anxiety, (Reported) Magnesium Hydroxide* (Milk Of Magnesia*), 30 ML ORAL BEDTIME PRN for Constipation, (Reported) Na Phos,M-B/Na Phos,Di-Ba* (Fleet Enema*), 133 ML RECTAL DAILY PRN for Constipation, (Reported) Patient History History Provided By: Patient, Medical Record, PMD Healthcare decision maker Resuscitation status Full Code Advanced Directive on File Past Medical/Surgical History Past Medical/Surgical History: (1) Anemia (2) Proteinuria (3) UTI (urinary tract infection) (4) Failure to thrive in adult (5) Gastrostomy tube dysfunction (6) ATN (acute tubular necrosis) (7) Schizo-affective schizophrenia (8) Dehydration Review of Systems Psychiatric: Reports: prior hx, anxiety, depressed feelings, emotional problems , hallucinations Physical Exam General Appearance: no apparent distress, alert Neurologic: alert, oriented x 3, responsive, normal mood/affect Last 24 Hour Vital Signs Date Time Temp Pulse Resp B/P (MAP) Pulse Ox O2 Delivery O2 Flow Rate FiO2 05/11/17 00:14 98.0 104 20 146/77 94 Room Air 05/10/17 20:00 97.6 100 18 152/78 95 Room Air 05/10/17 16:16 98.4 92 20 142/92 96 Room Air 05/10/17 12:00 98.2 91 19 136/78 97 Room Air 05/10/17 08:36 98.3 89 19 139/76 94 Room Air 05/10/17 04:00 97.7 96 19 140/77 96 Room Air Laboratory Tests Test 05/10/17 07:45 White Blood Count 7.2 K/UL (4.8-10.8) Red Blood Count 3.92 M/UL (4.20-5.40) L Hemoglobin 11.9 G/DL (12.0-16.0) L Hematocrit 40.5 % (37.0-47.0) Mean Corpuscular Volume 103 FL (80-99) H Mean Corpuscular Hemoglobin 30.3 PG (27.0-31.0) Mean Corpuscular Hemoglobin Concent 29.3 G/DL (32.0-36.0) L Red Cell Distribution Width 18.6 % (11.6-14.8) H Platelet Count 325 K/UL (150-450) Mean Platelet Volume 9.1 FL (6.5-10.1) Neutrophils (%) (Auto) 73.0 % (45.0-75.0) Lymphocytes (%) (Auto) 16.4 % (20.0-45.0) L Monocytes (%) (Auto) 9.4 % (1.0-10.0) Eosinophils (%) (Auto) 0.1 % (0.0-3.0) Basophils (%) (Auto) 1.1 % (0.0-2.0) Sodium Level 163 MMOL/L (136-145) *H Potassium Level 3.7 MMOL/L (3.5-5.1) Chloride Level 127 MMOL/L (98-107) H Carbon Dioxide Level 28 MMOL/L (21-32) Anion Gap 8 mmol/L (5-15) Blood Urea Nitrogen 34 mg/dL (7-18) H Creatinine 1.1 MG/DL (0.55-1.30) Estimat Glomerular Filtration Rate 50.8 mL/min (>60) Glucose Level 110 MG/DL (74-106) H Hemoglobin A1c 4.6 % (4.3-6.0) Calcium Level 9.7 MG/DL (8.5-10.1) Total Bilirubin 0.4 MG/DL (0.2-1.0) Aspartate Amino Transf (AST/SGOT) 12 U/L (15-37) L Alanine Aminotransferase (ALT/SGPT) 43 U/L (12-78) Alkaline Phosphatase 142 U/L (46-116) H Total Protein 7.3 G/DL (6.4-8.2) Albumin 2.7 G/DL (3.4-5.0) L Globulin 4.6 g/dL Albumin/Globulin Ratio 0.6 (1.0-2.7) L Height (Feet): 5 Height (Inches): 2.00 Weight (Pounds): 170 Medications Current Medications Medications (Trade) Dose Ordered Sig/Robert Route PRN Reason Start Time Stop Time Status Last Admin Dose Admin Dextrose 1,000 ml @ 100 mls/hr Q10H IV 05/10/17 16:00 06/09/17 15:59 05/10/17 17:19 Dextrose (Dextrose 50%) STAT PRN IV Hypoglycemia 05/10/17 02:30 06/09/17 02:29 Docusate Sodium (Colace) 100 mg THREE TIMES A DAY ORAL 05/10/17 13:30 06/09/17 13:29 05/10/17 13:51 Heparin Sodium (Porcine) (Heparin 5000 units/ml) 5,000 units EVERY 12 HOURS SUBQ 05/10/17 09:00 06/09/17 08:59 05/10/17 21:01 Insulin Aspart (NovoLOG) BEFORE MEALS AND HS SUBQ 05/10/17 06:30 06/09/17 06:29 Sweetser Carbonate (Sweetser Carbonate) 600 mg BEDTIME ORAL 05/10/17 21:00 06/09/17 08:59 05/10/17 20:53 Lorazepam (Ativan 2mg/ml 1ml) 0.5 mg Q4H PRN IV For Anxiety 05/10/17 00:00 05/17/17 00:00 Ondansetron HCl (Zofran) 4 mg Q6H PRN IVP Nausea & Vomiting 05/10/17 00:00 06/09/17 00:00 Piperacillin/ Tazobactam/ Dextrose 50 ml @ 12.5 mls/hr EVERY 8 HOURS IVPB 05/10/17 14:00 05/15/17 13:59 05/11/17 00:38 Polyethylene Glycol (Miralax) 17 gm BEDTIME ORAL 05/10/17 21:00 06/09/17 20:59 Quetiapine Fumarate (SEROquel) 200 mg THREE TIMES A DAY ORAL 05/10/17 09:00 06/09/17 08:59 05/10/17 13:52 Assessment/Plan Status: stable Assessment/Plan schizoaffective d/o lithium 600mg qhs one dose less harmful to kidneys Avery Dang M.D. May 11, 2017 00:46
[2017-05-11 04:00] VITALS: BP 141/78
[2017-05-11] MEDS: NovoLOG Insulin Flexpen SUBQ SCH ×4 (06:12→22:19)
[2017-05-11 08:00] VITALS: BP 142/82
[2017-05-11] MEDS: Docusate 100mg cap ORAL SCH ×3 (09:55→17:47)
[2017-05-11] MEDS: QUEtiapine 200mg tab ORAL SCH ×3 (09:55→17:47)
[2017-05-11] MEDS: Heparin 5000 units/ml inj SUBQ SCH ×2 (09:57→22:09)
[2017-05-11] MEDS ORDERED: D5W 275ml ONE (11:01)
--- NOTE | 2017-05-11 11:21 | GI Progress Note ---
Assessment/Plan Problems: (1) Dehydration ICD Codes: E86.0 - Dehydration SNOMED: 31801966 (2) Gastrostomy tube dysfunction ICD Codes: K94.23 - Gastrostomy malfunction SNOMED: 264936136 (3) Failure to thrive in adult ICD Codes: R62.7 - Adult failure to thrive SNOMED: 378522245 (4) Anemia ICD Codes: D64.9 - Anemia, unspecified SNOMED: 552721137 Qualifiers: Qualified Codes: D64.9 - Anemia, unspecified (5) Proteinuria ICD Codes: R80.9 - Proteinuria, unspecified SNOMED: 41179664 Qualifiers: Qualified Codes: R80.9 - Proteinuria, unspecified Status: stable Status Narrative Discussed with Dr. Elizabeth. Assessment/Plan ST evaluation for PO grat GT changed 2nd time, ok to start GTFs per dietary frequent turn q2-4 hours OB stool r/o GI bleed monitor H&H, prn transfusions bowel regime electrolyte correction >> D5W ppi fu labs, B12/folate Subjective Subjective limited Objective Last 24 Hour Vital Signs Date Time Temp Pulse Resp B/P (MAP) Pulse Ox O2 Delivery O2 Flow Rate FiO2 05/11/17 08:00 97.5 97 19 142/82 95 Room Air 05/11/17 04:00 98.5 101 19 141/78 95 Room Air 05/11/17 00:14 98.0 104 20 146/77 94 Room Air 05/10/17 20:00 97.6 100 18 152/78 95 Room Air 05/10/17 16:16 98.4 92 20 142/92 96 Room Air 05/10/17 12:00 98.2 91 19 136/78 97 Room Air Laboratory Tests Test 05/11/17 10:30 Urine Random Sodium Pending Height (Feet): 5 Height (Inches): 2.00 Weight (Pounds): 170 General Appearance: no apparent distress, alert Cardiovascular: normal rate Respiratory/Chest: normal breath sounds, no respiratory distress Abdominal Exam: normal bowel sounds, non tender, soft Extremities: non-tender Eva Alcocer N.P. May 11, 2017 11:21
[2017-05-11 12:00] VITALS: BP 140/80
--- NOTE | 2017-05-11 12:28 | Infectious Diseases Prog Note ---
Assessment/Plan Assessment/Plan ASSESSMENT: The patient is a 57-year-old female with: Pyuria/possible urinary tract infection, UCx: GNR Lethargy Hypertension Status post trach that was removed on 05/07/2017. GERD. Diabetes. Schizophrenia/bipolar disorder PLAN: continue the patient on IV Zosyn d# 2 / 3 Monitor CBC Monitor BMP. Monitor urine culture Subjective Constitutional: Denies: no symptoms, fever, chills, fatigue, anorexia, drenching sweats, other Allergies: Coded Allergies: No Known Allergies (Unverified , 05/09/17) Objective Vital Signs Last 24 Hour Vital Signs Date Time Temp Pulse Resp B/P (MAP) Pulse Ox O2 Delivery O2 Flow Rate FiO2 05/11/17 12:00 97.9 94 18 140/80 100 Room Air 05/11/17 08:00 97.5 97 19 142/82 95 Room Air 05/11/17 04:00 98.5 101 19 141/78 95 Room Air 05/11/17 00:14 98.0 104 20 146/77 94 Room Air 05/10/17 20:00 97.6 100 18 152/78 95 Room Air 05/10/17 16:16 98.4 92 20 142/92 96 Room Air Height (Feet): 5 Height (Inches): 2.00 Weight (Pounds): 170 HEENT: anicteric Respiratory/Chest: normal breath sounds Cardiovascular: regular rhythm Abdomen: no organomegaly Microbiology Date/Time Source Procedure Growth Status 05/09/17 21:50 Nasal Nares MRSA Culture - Final Staphylococcus Aureus - Mrsa Complete 05/09/17 22:28 Urine,Clean Catch Urine Culture - Preliminary Gram Negative Bacillus 1 Resulted Laboratory Tests Test 05/11/17 10:30 Urine Random Sodium 48 MEQ/L (20-110) Current Medications Medications (Trade) Dose Ordered Sig/Robert Route PRN Reason Start Time Stop Time Status Last Admin Dose Admin Dextrose 1,000 ml @ 100 mls/hr Q10H IV 05/10/17 16:00 06/09/17 15:59 05/10/17 17:19 Dextrose (Dextrose 50%) STAT PRN IV Hypoglycemia 05/10/17 02:30 06/09/17 02:29 Docusate Sodium (Colace) 100 mg THREE TIMES A DAY ORAL 05/10/17 13:30 06/09/17 13:29 05/11/17 09:55 Heparin Sodium (Porcine) (Heparin 5000 units/ml) 5,000 units EVERY 12 HOURS SUBQ 05/10/17 09:00 06/09/17 08:59 05/11/17 09:57 Insulin Aspart (NovoLOG) BEFORE MEALS AND HS SUBQ 05/10/17 06:30 06/09/17 06:29 [place] Carbonate ([place] Carbonate) 600 mg BEDTIME ORAL 05/10/17 21:00 06/09/17 08:59 05/10/17 20:53 Lorazepam (Ativan 2mg/ml 1ml) 0.5 mg Q4H PRN IV For Anxiety 05/10/17 00:00 05/17/17 00:00 Ondansetron HCl (Zofran) 4 mg Q6H PRN IVP Nausea & Vomiting 05/10/17 00:00 06/09/17 00:00 Piperacillin/ Tazobactam/ Dextrose 50 ml @ 12.5 mls/hr EVERY 8 HOURS IVPB 05/10/17 14:00 05/15/17 13:59 05/11/17 10:19 Polyethylene Glycol (Miralax) 17 gm BEDTIME ORAL 05/10/17 21:00 06/09/17 20:59 Quetiapine Fumarate (SEROquel) 200 mg THREE TIMES A DAY ORAL 05/10/17 09:00 06/09/17 08:59 05/11/17 09:55 CHIQUI ROONEY M.D. May 11, 2017 12:28
--- NOTE | 2017-05-11 15:11 | Nephrology Progress Note ---
Assessment/Plan Problem List: (1) ATN (acute tubular necrosis) (2) Dehydration (3) UTI (urinary tract infection) (4) Anemia Assessment (1) Acte renal failure- dehydration (2) Schizo-affective schizophrenia (3) Gastrostomy tube dysfunction (4) UTI (urinary tract infection) (5) Failure to Thrive (6) Anemia Plan Plan: todays labs pending hydrate- Monitor lytes- Urine studies- per Psych Subjective ROS Limited/Unobtainable: No Constitutional: Reports: malaise, weakness Objective Objective Last 24 Hour Vital Signs Date Time Temp Pulse Resp B/P (MAP) Pulse Ox O2 Delivery O2 Flow Rate FiO2 05/11/17 12:00 97.9 94 18 140/80 100 Room Air 05/11/17 08:00 97.5 97 19 142/82 95 Room Air 05/11/17 04:00 98.5 101 19 141/78 95 Room Air 05/11/17 00:14 98.0 104 20 146/77 94 Room Air 05/10/17 20:00 97.6 100 18 152/78 95 Room Air 05/10/17 16:16 98.4 92 20 142/92 96 Room Air Intake and Output 05/11/17 05/12/17 19:00 07:00 Intake Total 650.0 ml Output Total 4100 ml Balance -3450.0 ml Intake IV Total 650.0 ml Output Urine Total 4100 ml Laboratory Tests 05/11/17 10:30: Urine Random Sodium 48 Height (Feet): 5 Height (Inches): 2.00 Weight (Pounds): 170 General Appearance: no apparent distress, agitated Cardiovascular: tachycardia Respiratory/Chest: decreased breath sounds Abdomen: soft ATILIO GARCIA May 11, 2017 15:11
[2017-05-11 16:00] VITALS: BP 117/72
--- NOTE | 2017-05-11 17:45 | Pulmonology Progress Note ---
Assessment/Plan Problems: (1) ATN (acute tubular necrosis) (2) Schizo-affective schizophrenia (3) Gastrostomy tube dysfunction (4) UTI (urinary tract infection) Assessment/Plan iv fluids GI f/u Renal consult check electrolytes pt refusing care Subjective ROS Limited/Unobtainable: No Constitutional: Reports: no symptoms HEENT: Repors: no symptoms Respiratory: Reports: no symptoms Allergies: Coded Allergies: No Known Allergies (Unverified , 05/09/17) Objective Last 24 Hour Vital Signs Date Time Temp Pulse Resp B/P (MAP) Pulse Ox O2 Delivery O2 Flow Rate FiO2 05/11/17 16:00 96.1 99 19 117/72 96 Room Air 05/11/17 12:00 97.9 94 18 140/80 100 Room Air 05/11/17 08:00 97.5 97 19 142/82 95 Room Air 05/11/17 04:00 98.5 101 19 141/78 95 Room Air 05/11/17 00:14 98.0 104 20 146/77 94 Room Air 05/10/17 20:00 97.6 100 18 152/78 95 Room Air Intake and Output 05/11/17 05/12/17 19:00 07:00 Intake Total 770.0 ml Output Total 4100 ml Balance -3330.0 ml Intake Free Water 40 ml IV Total 650.0 ml Tube Feeding 80 ml Output Urine Total 4100 ml General Appearance: WD/WN HEENT: normocephalic, atraumatic Respiratory/Chest: chest wall non-tender, lungs clear Breasts: no masses Cardiovascular: normal peripheral pulses Abdomen: normal bowel sounds, soft, non tender Genitourinary: normal external genitalia Extremities: no clubbing 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/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 Microbiology Date/Time Source Procedure Growth Status 05/09/17 21:50 Nasal Nares MRSA Culture - Final Staphylococcus Aureus - Mrsa Complete 05/09/17 22:28 Urine,Clean Catch Urine Culture - Preliminary Gram Negative Bacillus 1 Resulted Laboratory Tests 05/11/17 10:30: Urine Random Sodium 48 Current Medications Medications (Trade) Dose Ordered Sig/Robert Route PRN Reason Start Time Stop Time Status Last Admin Dose Admin Dextrose 1,000 ml @ 100 mls/hr Q10H IV 05/10/17 16:00 06/09/17 15:59 05/10/17 17:19 Dextrose (Dextrose 50%) STAT PRN IV Hypoglycemia 05/10/17 02:30 06/09/17 02:29 Docusate Sodium (Colace) 100 mg THREE TIMES A DAY ORAL 05/10/17 13:30 06/09/17 13:29 05/11/17 13:16 Heparin Sodium (Porcine) (Heparin 5000 units/ml) 5,000 units EVERY 12 HOURS SUBQ 05/10/17 09:00 06/09/17 08:59 05/11/17 09:57 Insulin Aspart (NovoLOG) BEFORE MEALS AND HS SUBQ 05/10/17 06:30 06/09/17 06:29 05/11/17 17:15 [place] Carbonate ([place] Carbonate) 600 mg BEDTIME ORAL 05/10/17 21:00 06/09/17 08:59 05/10/17 20:53 Lorazepam (Ativan 2mg/ml 1ml) 0.5 mg Q4H PRN IV For Anxiety 05/10/17 00:00 05/17/17 00:00 Ondansetron HCl (Zofran) 4 mg Q6H PRN IVP Nausea & Vomiting 05/10/17 00:00 06/09/17 00:00 Piperacillin/ Tazobactam/ Dextrose 50 ml @ 12.5 mls/hr EVERY 8 HOURS IVPB 05/10/17 14:00 05/15/17 13:59 05/11/17 14:33 Polyethylene Glycol (Miralax) 17 gm BEDTIME ORAL 05/10/17 21:00 06/09/17 20:59 Quetiapine Fumarate (SEROquel) 200 mg THREE TIMES A DAY ORAL 05/10/17 09:00 06/09/17 08:59 05/11/17 13:16 ANYI ALEGRIA May 11, 2017 17:45
[2017-05-11 20:00] VITALS: BP 117/61
[2017-05-11] MEDS: Miralax 17gm pkt ORAL SCH (21:54)
[2017-05-12] VITALS (7 sets, daily range): BP systolic 105–140; BP diastolic 43–74
[2017-05-12] MEDS: Zosyn 3.375gm q8h **Extended infusion IVPB SCH ×3 (05:31→22:00)
[2017-05-12] MEDS: NovoLOG Insulin Flexpen SUBQ SCH ×4 (06:03→21:00)
[2017-05-12 06:53] LABS: BASOPHILS % (AUTO) 1.2 % (0.0-2.0); EOSINOPHILS % (AUTO) 0.1 % (0.0-3.0); LYMPHOCYTES % (AUTO) 12.8 % (20.0-45.0); MEAN CORPUSCULAR HEMOGLOBIN 29.2 PG (27.0-31.0); MEAN CORPUSCULAR HGB CONC 27.7 G/DL (32.0-36.0); MEAN CORPUSCULAR VOLUME 105 FL (80-99); MEAN PLATELET VOLUME 9.1 FL (6.5-10.1); MONOCYTES % (AUTO) 5.5 % (1.0-10.0); NEUTROPHILS % (AUTO) 80.4 % (45.0-75.0); PLATELET COUNT 264 K/UL (150-450); RED CELL DISTRIBUTION WIDTH 18.2 % (11.6-14.8); WHITE BLOOD COUNT 7.4 K/UL (4.8-10.8)
[2017-05-12 07:04] LABS: CRP QUANT 3.7 mg/dL (0.00-0.90); MAGNESIUM 2.8 MG/DL (1.8-2.4); PHOSPHORUS 2.4 MG/DL (2.5-4.9)
[2017-05-12 07:08] LABS: ALANINE AMINOTRANSFERASE 45 U/L (12-78); ALBUMIN/GLOBULIN RATIO 0.6 (1.0-2.7); ANION GAP 5 mmol/L (5-15); ASPARTATE AMINO TRANSFERASE 22 U/L (15-37); CALCIUM 9.8 MG/DL (8.5-10.1); CARBON DIOXIDE 30 MMOL/L (21-32); CHLORIDE 123 MMOL/L (98-107); CREATININE 1.2 MG/DL (0.55-1.30); POTASSIUM 2.9 MMOL/L (3.5-5.1); SODIUM 158 MMOL/L (136-145); TOTAL PROTEIN 6.2 G/DL (6.4-8.2)
[2017-05-12 07:37] LABS: FOLIC ACID 12.6 NG/ML (3.1-17.5)
[2017-05-12 09:02] LABS: ERYTHROCYTE SEDIMENTATION RATE 61 MM/HR (0-30)
[2017-05-12] MEDS: Docusate 100mg cap ORAL SCH ×3 (09:54→18:19)
[2017-05-12] MEDS: QUEtiapine 200mg tab ORAL SCH ×3 (09:54→18:20)
[2017-05-12] MEDS: Heparin 5000 units/ml inj SUBQ SCH ×2 (10:00→21:32)
[2017-05-12] MEDS ORDERED: Potassium Phosphate 30 MM in NS 275 ML IV ONE (10:30)
--- NOTE | 2017-05-12 11:17 | GI Progress Note ---
Assessment/Plan Problems: (1) Dehydration ICD Codes: E86.0 - Dehydration SNOMED: 06402275 (2) Gastrostomy tube dysfunction ICD Codes: K94.23 - Gastrostomy malfunction SNOMED: 144384796 (3) Failure to thrive in adult ICD Codes: R62.7 - Adult failure to thrive SNOMED: 954599460 (4) Anemia ICD Codes: D64.9 - Anemia, unspecified SNOMED: 463401138 Qualifiers: Qualified Codes: D64.9 - Anemia, unspecified (5) Proteinuria ICD Codes: R80.9 - Proteinuria, unspecified SNOMED: 64116491 Qualifiers: Qualified Codes: R80.9 - Proteinuria, unspecified Status: stable Status Narrative Discussed with Dr. Elizabeth. Assessment/Plan ST evaluation for PO grat GT changed 2nd time, patient pulled. GTFs per dietary, tolerating frequent turn q2-4 hours OB stool r/o GI bleed monitor H&H, prn transfusions bowel regime electrolyte correction >> D5W ppi fu labs Subjective Subjective limited Objective Last 24 Hour Vital Signs Date Time Temp Pulse Resp B/P (MAP) Pulse Ox O2 Delivery O2 Flow Rate FiO2 05/12/17 07:19 97.5 96 20 140/71 95 Room Air 05/12/17 04:02 96.4 97 20 114/70 97 Room Air 05/12/17 00:00 96.8 96 18 115/65 95 Room Air 05/11/17 20:00 96.3 101 18 117/61 97 Room Air 05/11/17 16:00 96.1 99 19 117/72 96 Room Air 05/11/17 12:00 97.9 94 18 140/80 100 Room Air Laboratory Tests Test 05/12/17 05:30 White Blood Count 7.4 K/UL (4.8-10.8) Red Blood Count 3.20 M/UL (4.20-5.40) L Hemoglobin 9.3 G/DL (12.0-16.0) L Hematocrit 33.7 % (37.0-47.0) L Mean Corpuscular Volume 105 FL (80-99) H Mean Corpuscular Hemoglobin 29.2 PG (27.0-31.0) Mean Corpuscular Hemoglobin Concent 27.7 G/DL (32.0-36.0) L Red Cell Distribution Width 18.2 % (11.6-14.8) H Platelet Count 264 K/UL (150-450) Mean Platelet Volume 9.1 FL (6.5-10.1) Neutrophils (%) (Auto) 80.4 % (45.0-75.0) H Lymphocytes (%) (Auto) 12.8 % (20.0-45.0) L Monocytes (%) (Auto) 5.5 % (1.0-10.0) Eosinophils (%) (Auto) 0.1 % (0.0-3.0) Basophils (%) (Auto) 1.2 % (0.0-2.0) Erythrocyte Sedimentation Rate 61 MM/HR (0-30) H Sodium Level 158 MMOL/L (136-145) H Potassium Level 2.9 MMOL/L (3.5-5.1) L Chloride Level 123 MMOL/L (98-107) H Carbon Dioxide Level 30 MMOL/L (21-32) Anion Gap 5 mmol/L (5-15) Blood Urea Nitrogen 24 mg/dL (7-18) H Creatinine 1.2 MG/DL (0.55-1.30) Estimat Glomerular Filtration Rate 46.0 mL/min (>60) Glucose Level 118 MG/DL (74-106) H Calcium Level 9.8 MG/DL (8.5-10.1) Phosphorus Level 2.4 MG/DL (2.5-4.9) L Magnesium Level 2.8 MG/DL (1.8-2.4) H Total Bilirubin 0.5 MG/DL (0.2-1.0) Aspartate Amino Transf (AST/SGOT) 22 U/L (15-37) Alanine Aminotransferase (ALT/SGPT) 45 U/L (12-78) Alkaline Phosphatase 135 U/L (46-116) H C-Reactive Protein, Quantitative 3.7 mg/dL (0.00-0.90) H Total Protein 6.2 G/DL (6.4-8.2) L Albumin 2.2 G/DL (3.4-5.0) L Globulin 4.0 g/dL Albumin/Globulin Ratio 0.6 (1.0-2.7) L Vitamin B12 Level 733 PG/ML (193-986) Folate 12.6 NG/ML (3.1-17.5) Height (Feet): 5 Height (Inches): 2.00 Weight (Pounds): 170 General Appearance: alert Cardiovascular: normal rate Respiratory/Chest: normal breath sounds, no respiratory distress Abdominal Exam: soft, GT site - c/d/i Eva Alcocer N.P. May 12, 2017 11:17
--- NOTE | 2017-05-12 12:47 | Infectious Diseases Prog Note ---
Assessment/Plan Assessment/Plan ASSESSMENT: The patient is a 57-year-old female with: Pyuria/possible urinary tract infection, UCx: Kleb Lethargy Hypertension Status post trach that was removed on 05/07/2017. GERD. Diabetes. Schizophrenia/bipolar disorder PLAN: continue the patient on IV Zosyn d# 3 / 3 , will DC in AM or upon DC Monitor CBC Monitor BMP. Monitor urine culture Subjective Constitutional: Denies: no symptoms, fever, chills, fatigue, anorexia, drenching sweats, other Allergies: Coded Allergies: No Known Allergies (Unverified , 05/09/17) Objective Vital Signs Last 24 Hour Vital Signs Date Time Temp Pulse Resp B/P (MAP) Pulse Ox O2 Delivery O2 Flow Rate FiO2 05/12/17 07:19 97.5 96 20 140/71 95 Room Air 05/12/17 04:02 96.4 97 20 114/70 97 Room Air 05/12/17 00:00 96.8 96 18 115/65 95 Room Air 05/11/17 20:00 96.3 101 18 117/61 97 Room Air 05/11/17 16:00 96.1 99 19 117/72 96 Room Air Height (Feet): 5 Height (Inches): 2.00 Weight (Pounds): 170 HEENT: anicteric Respiratory/Chest: no respiratory distress Cardiovascular: regular rhythm Abdomen: soft, non tender Microbiology Date/Time Source Procedure Growth Status 05/09/17 21:50 Nasal Nares MRSA Culture - Final Staphylococcus Aureus - Mrsa Complete 05/09/17 22:28 Urine,Clean Catch Urine Culture - Final Klebsiella Pneumoniae Complete 05/09/17 21:50 Rectum VRE Culture - Final Enterococcus Faecalis - Vre Complete Laboratory Tests Test 05/12/17 05:30 White Blood Count 7.4 K/UL (4.8-10.8) Red Blood Count 3.20 M/UL (4.20-5.40) L Hemoglobin 9.3 G/DL (12.0-16.0) L Hematocrit 33.7 % (37.0-47.0) L Mean Corpuscular Volume 105 FL (80-99) H Mean Corpuscular Hemoglobin 29.2 PG (27.0-31.0) Mean Corpuscular Hemoglobin Concent 27.7 G/DL (32.0-36.0) L Red Cell Distribution Width 18.2 % (11.6-14.8) H Platelet Count 264 K/UL (150-450) Mean Platelet Volume 9.1 FL (6.5-10.1) Neutrophils (%) (Auto) 80.4 % (45.0-75.0) H Lymphocytes (%) (Auto) 12.8 % (20.0-45.0) L Monocytes (%) (Auto) 5.5 % (1.0-10.0) Eosinophils (%) (Auto) 0.1 % (0.0-3.0) Basophils (%) (Auto) 1.2 % (0.0-2.0) Erythrocyte Sedimentation Rate 61 MM/HR (0-30) H Sodium Level 158 MMOL/L (136-145) H Potassium Level 2.9 MMOL/L (3.5-5.1) L Chloride Level 123 MMOL/L (98-107) H Carbon Dioxide Level 30 MMOL/L (21-32) Anion Gap 5 mmol/L (5-15) Blood Urea Nitrogen 24 mg/dL (7-18) H Creatinine 1.2 MG/DL (0.55-1.30) Estimat Glomerular Filtration Rate 46.0 mL/min (>60) Glucose Level 118 MG/DL (74-106) H Calcium Level 9.8 MG/DL (8.5-10.1) Phosphorus Level 2.4 MG/DL (2.5-4.9) L Magnesium Level 2.8 MG/DL (1.8-2.4) H Total Bilirubin 0.5 MG/DL (0.2-1.0) Aspartate Amino Transf (AST/SGOT) 22 U/L (15-37) Alanine Aminotransferase (ALT/SGPT) 45 U/L (12-78) Alkaline Phosphatase 135 U/L (46-116) H C-Reactive Protein, Quantitative 3.7 mg/dL (0.00-0.90) H Total Protein 6.2 G/DL (6.4-8.2) L Albumin 2.2 G/DL (3.4-5.0) L Globulin 4.0 g/dL Albumin/Globulin Ratio 0.6 (1.0-2.7) L Vitamin B12 Level 733 PG/ML (193-986) Folate 12.6 NG/ML (3.1-17.5) Current Medications Medications (Trade) Dose Ordered Sig/Robert Route PRN Reason Start Time Stop Time Status Last Admin Dose Admin Dextrose 1,000 ml @ 100 mls/hr Q10H IV 05/10/17 16:00 06/09/17 15:59 05/12/17 10:02 Dextrose (Dextrose 50%) STAT PRN IV Hypoglycemia 05/10/17 02:30 06/09/17 02:29 Docusate Sodium (Colace) 100 mg THREE TIMES A DAY ORAL 05/10/17 13:30 06/09/17 13:29 05/12/17 09:54 Heparin Sodium (Porcine) (Heparin 5000 units/ml) 5,000 units EVERY 12 HOURS SUBQ 05/10/17 09:00 06/09/17 08:59 05/12/17 10:00 Insulin Aspart (NovoLOG) BEFORE MEALS AND HS SUBQ 05/10/17 06:30 06/09/17 06:29 05/12/17 12:44 [place] Carbonate ([place] Carbonate) 600 mg BEDTIME ORAL 05/10/17 21:00 06/09/17 08:59 05/11/17 21:54 Lorazepam (Ativan 2mg/ml 1ml) 0.5 mg Q4H PRN IV For Anxiety 05/10/17 00:00 05/17/17 00:00 Ondansetron HCl (Zofran) 4 mg Q6H PRN IVP Nausea & Vomiting 05/10/17 00:00 06/09/17 00:00 Piperacillin/ Tazobactam/ Dextrose 50 ml @ 12.5 mls/hr EVERY 8 HOURS IVPB 05/10/17 14:00 05/15/17 13:59 05/12/17 05:31 Polyethylene Glycol (Miralax) 17 gm BEDTIME ORAL 05/10/17 21:00 06/09/17 20:59 05/11/17 21:54 Potassium Phosphate 30 mm/ Sodium Chloride 285 ml @ 47.5 mls/hr ONCE ONCE IV 05/12/17 10:30 05/12/17 16:29 05/12/17 10:02 Quetiapine Fumarate (SEROquel) 200 mg THREE TIMES A DAY ORAL 05/10/17 09:00 06/09/17 08:59 05/12/17 09:54 CHIQUI ROONEY M.D. May 12, 2017 12:47
--- NOTE | 2017-05-12 15:52 | Nephrology Progress Note ---
Assessment/Plan Problem List: (1) ATN (acute tubular necrosis) (2) Dehydration (3) UTI (urinary tract infection) (4) Anemia Assessment status: (1) Acte renal failure- dehydration (2) Schizo-affective schizophrenia (3) Gastrostomy tube dysfunction (4) UTI (urinary tract infection) (5) Failure to Thrive (6) Anemia Plan Plan: add JUAN J eliud to labs todays labs reviewed K Phos IV hydrate- Monitor lytes- Urine studies- per Psych Subjective ROS Limited/Unobtainable: No Constitutional: Reports: malaise Objective Objective Last 24 Hour Vital Signs Date Time Temp Pulse Resp B/P (MAP) Pulse Ox O2 Delivery O2 Flow Rate FiO2 05/12/17 12:00 95.5 100 20 127/74 95 Room Air 05/12/17 07:19 97.5 96 20 140/71 95 Room Air 05/12/17 04:02 96.4 97 20 114/70 97 Room Air 05/12/17 00:00 96.8 96 18 115/65 95 Room Air 05/11/17 20:00 96.3 101 18 117/61 97 Room Air 05/11/17 16:00 96.1 99 19 117/72 96 Room Air Laboratory Tests 05/12/17 05:30: White Blood Count 7.4, Red Blood Count 3.20L, Hemoglobin 9.3L, Hematocrit 33.7L , Mean Corpuscular Volume 105H, Mean Corpuscular Hemoglobin 29.2, Mean Corpuscular Hemoglobin Concent 27.7L, Red Cell Distribution Width 18.2H, Platelet Count 264, Mean Platelet Volume 9.1, Neutrophils (%) (Auto) 80.4H, Lymphocytes (%) (Auto) 12.8L, Monocytes (%) (Auto) 5.5, Eosinophils (%) (Auto) 0.1, Basophils (%) (Auto) 1.2, Erythrocyte Sedimentation Rate 61H, Sodium Level 158H, Potassium Level 2.9L, Chloride Level 123H, Carbon Dioxide Level 30, Anion Gap 5, Blood Urea Nitrogen 24H, Creatinine 1.2, Estimat Glomerular Filtration Rate 46.0, Glucose Level 118H, Calcium Level 9.8, Phosphorus Level 2.4L, Magnesium Level 2.8H, Total Bilirubin 0.5, Aspartate Amino Transf (AST/SGOT) 22 , Alanine Aminotransferase (ALT/SGPT) 45, Alkaline Phosphatase 135H, C-Reactive Protein, Quantitative 3.7H, Total Protein 6.2L, Albumin 2.2L, Globulin 4.0, Albumin/Globulin Ratio 0.6L, Vitamin B12 Level 733, Folate 12.6 Height (Feet): 5 Height (Inches): 2.00 Weight (Pounds): 170 General Appearance: no apparent distress Objective no other changes ATILIO GARCIA May 12, 2017 15:52
--- NOTE | 2017-05-12 18:48 | Pulmonology Progress Note ---
Assessment/Plan Problems: (1) ATN (acute tubular necrosis) (2) Schizo-affective schizophrenia (3) Gastrostomy tube dysfunction (4) UTI (urinary tract infection) Assessment/Plan iv fluids GI f/u Renal consult check electrolytes pt refusing care Subjective ROS Limited/Unobtainable: No Constitutional: Reports: no symptoms HEENT: Repors: no symptoms Allergies: Coded Allergies: No Known Allergies (Unverified , 05/09/17) Objective Last 24 Hour Vital Signs Date Time Temp Pulse Resp B/P (MAP) Pulse Ox O2 Delivery O2 Flow Rate FiO2 05/12/17 18:23 97.2 92 20 135/71 96 Room Air 05/12/17 16:00 95.9 92 20 135/71 96 Room Air 05/12/17 12:00 95.5 100 20 127/74 95 Room Air 05/12/17 07:19 97.5 96 20 140/71 95 Room Air 05/12/17 04:02 96.4 97 20 114/70 97 Room Air 05/12/17 00:00 96.8 96 18 115/65 95 Room Air 05/11/17 20:00 96.3 101 18 117/61 97 Room Air Objective General Appearance: WD/WN, no apparent distress Lines, tubes and drains: peripheral, HEENT: normocephalic, anicteric Neck: non-tender, normal alignment Respiratory/Chest: chest wall non-tender, lungs clear Cardiovascular/Chest: normal rate, regular rhythm Abdomen: non tender, soft Genitourinary/Rectal: normal genital exam, normal rectal exam Extremities: normal range of motion, non-pitting Microbiology Date/Time Source Procedure Growth Status 05/09/17 21:50 Nasal Nares MRSA Culture - Final Staphylococcus Aureus - Mrsa Complete 05/09/17 22:28 Urine,Clean Catch Urine Culture - Final Klebsiella Pneumoniae Complete 05/09/17 21:50 Rectum VRE Culture - Final Enterococcus Faecalis - Vre Complete Laboratory Tests 05/12/17 05:30: White Blood Count 7.4, Red Blood Count 3.20L, Hemoglobin 9.3L, Hematocrit 33.7L , Mean Corpuscular Volume 105H, Mean Corpuscular Hemoglobin 29.2, Mean Corpuscular Hemoglobin Concent 27.7L, Red Cell Distribution Width 18.2H, Platelet Count 264, Mean Platelet Volume 9.1, Neutrophils (%) (Auto) 80.4H, Lymphocytes (%) (Auto) 12.8L, Monocytes (%) (Auto) 5.5, Eosinophils (%) (Auto) 0.1, Basophils (%) (Auto) 1.2, Erythrocyte Sedimentation Rate 61H, Sodium Level 158H, Potassium Level 2.9L, Chloride Level 123H, Carbon Dioxide Level 30, Anion Gap 5, Blood Urea Nitrogen 24H, Creatinine 1.2, Estimat Glomerular Filtration Rate 46.0, Glucose Level 118H, Calcium Level 9.8, Phosphorus Level 2.4L, Magnesium Level 2.8H, Total Bilirubin 0.5, Aspartate Amino Transf (AST/SGOT) 22 , Alanine Aminotransferase (ALT/SGPT) 45, Alkaline Phosphatase 135H, C-Reactive Protein, Quantitative 3.7H, Total Protein 6.2L, Albumin 2.2L, Globulin 4.0, Albumin/Globulin Ratio 0.6L, Vitamin B12 Level 733, Folate 12.6, Thyroid Stimulating Hormone (TSH) 3.187, [place] Level [Pending] Current Medications Medications (Trade) Dose Ordered Sig/Robert Route PRN Reason Start Time Stop Time Status Last Admin Dose Admin Dextrose 1,000 ml @ 100 mls/hr Q10H IV 05/10/17 16:00 06/09/17 15:59 05/12/17 10:02 Dextrose (Dextrose 50%) STAT PRN IV Hypoglycemia 05/10/17 02:30 06/09/17 02:29 Docusate Sodium (Colace) 100 mg THREE TIMES A DAY ORAL 05/10/17 13:30 06/09/17 13:29 05/12/17 18:19 Heparin Sodium (Porcine) (Heparin 5000 units/ml) 5,000 units EVERY 12 HOURS SUBQ 05/10/17 09:00 06/09/17 08:59 05/12/17 10:00 Insulin Aspart (NovoLOG) BEFORE MEALS AND HS SUBQ 05/10/17 06:30 06/09/17 06:29 05/12/17 12:44 [place] Carbonate (Gause Carbonate) 600 mg BEDTIME ORAL 05/10/17 21:00 06/09/17 08:59 05/11/17 21:54 Lorazepam (Ativan 2mg/ml 1ml) 0.5 mg Q4H PRN IV For Anxiety 05/10/17 00:00 05/17/17 00:00 Ondansetron HCl (Zofran) 4 mg Q6H PRN IVP Nausea & Vomiting 05/10/17 00:00 06/09/17 00:00 Piperacillin/ Tazobactam/ Dextrose 50 ml @ 12.5 mls/hr EVERY 8 HOURS IVPB 05/10/17 14:00 05/15/17 13:59 05/12/17 15:08 Polyethylene Glycol (Miralax) 17 gm BEDTIME ORAL 05/10/17 21:00 06/09/17 20:59 05/11/17 21:54 Quetiapine Fumarate (SEROquel) 200 mg THREE TIMES A DAY ORAL 05/10/17 09:00 06/09/17 08:59 05/12/17 18:20 ANYI ALEGRIA May 12, 2017 18:48
--- NOTE | 2017-05-12 21:08 | General Progress Note ---
Assessment/Plan Assessment/Plan encephalopathy agitated risperdal 2mg lithoum 600mg Subjective Date patient seen: May 11, 2017 Neurologic/Psychiatric: Reports: anxiety, depressed, emotional problems Allergies: Coded Allergies: No Known Allergies (Unverified , 05/09/17) Subjective the pt was agitated and attempting to come out of bed Objective Last 24 Hour Vital Signs Date Time Temp Pulse Resp B/P (MAP) Pulse Ox O2 Delivery O2 Flow Rate FiO2 05/12/17 20:00 97.3 102 20 105/43 100 Room Air 05/12/17 18:23 97.2 92 20 135/71 96 Room Air 05/12/17 16:00 95.9 92 20 135/71 96 Room Air 05/12/17 12:00 95.5 100 20 127/74 95 Room Air 05/12/17 07:19 97.5 96 20 140/71 95 Room Air 05/12/17 04:02 96.4 97 20 114/70 97 Room Air 05/12/17 00:00 96.8 96 18 115/65 95 Room Air Laboratory Tests 05/12/17 05:30: White Blood Count 7.4, Red Blood Count 3.20L, Hemoglobin 9.3L, Hematocrit 33.7L , Mean Corpuscular Volume 105H, Mean Corpuscular Hemoglobin 29.2, Mean Corpuscular Hemoglobin Concent 27.7L, Red Cell Distribution Width 18.2H, Platelet Count 264, Mean Platelet Volume 9.1, Neutrophils (%) (Auto) 80.4H, Lymphocytes (%) (Auto) 12.8L, Monocytes (%) (Auto) 5.5, Eosinophils (%) (Auto) 0.1, Basophils (%) (Auto) 1.2, Erythrocyte Sedimentation Rate 61H, Sodium Level 158H, Potassium Level 2.9L, Chloride Level 123H, Carbon Dioxide Level 30, Anion Gap 5, Blood Urea Nitrogen 24H, Creatinine 1.2, Estimat Glomerular Filtration Rate 46.0, Glucose Level 118H, Calcium Level 9.8, Phosphorus Level 2.4L, Magnesium Level 2.8H, Total Bilirubin 0.5, Aspartate Amino Transf (AST/SGOT) 22 , Alanine Aminotransferase (ALT/SGPT) 45, Alkaline Phosphatase 135H, C-Reactive Protein, Quantitative 3.7H, Total Protein 6.2L, Albumin 2.2L, Globulin 4.0, Albumin/Globulin Ratio 0.6L, Vitamin B12 Level 733, Folate 12.6, Thyroid Stimulating Hormone (TSH) 3.187, [place] Level [Pending] Height (Feet): 5 Height (Inches): 2.00 Weight (Pounds): 170 General Appearance: no apparent distress, alert, confused, agitated, overweight Neurologic: alert, responsive, disoriented, depressed affect Avery Dang M.D. May 12, 2017 21:08
--- NOTE | 2017-05-12 21:12 | Geriatric Progress Note ---
Assessment/Plan Assessment/Plan less agitated calmer cont lithium and seroquel Subjective Mood/Memory: Reports: anxiety, depressed feelings, emotional problems Geriatric Geriatric Last 24 Hour Vital Signs Date Time Temp Pulse Resp B/P (MAP) Pulse Ox O2 Delivery O2 Flow Rate FiO2 05/12/17 20:00 97.3 102 20 105/43 100 Room Air 05/12/17 18:23 97.2 92 20 135/71 96 Room Air 05/12/17 16:00 95.9 92 20 135/71 96 Room Air 05/12/17 12:00 95.5 100 20 127/74 95 Room Air 05/12/17 07:19 97.5 96 20 140/71 95 Room Air 05/12/17 04:02 96.4 97 20 114/70 97 Room Air 05/12/17 00:00 96.8 96 18 115/65 95 Room Air Laboratory Tests Test 05/12/17 05:30 White Blood Count 7.4 K/UL (4.8-10.8) Red Blood Count 3.20 M/UL (4.20-5.40) L Hemoglobin 9.3 G/DL (12.0-16.0) L Hematocrit 33.7 % (37.0-47.0) L Mean Corpuscular Volume 105 FL (80-99) H Mean Corpuscular Hemoglobin 29.2 PG (27.0-31.0) Mean Corpuscular Hemoglobin Concent 27.7 G/DL (32.0-36.0) L Red Cell Distribution Width 18.2 % (11.6-14.8) H Platelet Count 264 K/UL (150-450) Mean Platelet Volume 9.1 FL (6.5-10.1) Neutrophils (%) (Auto) 80.4 % (45.0-75.0) H Lymphocytes (%) (Auto) 12.8 % (20.0-45.0) L Monocytes (%) (Auto) 5.5 % (1.0-10.0) Eosinophils (%) (Auto) 0.1 % (0.0-3.0) Basophils (%) (Auto) 1.2 % (0.0-2.0) Erythrocyte Sedimentation Rate 61 MM/HR (0-30) H Sodium Level 158 MMOL/L (136-145) H Potassium Level 2.9 MMOL/L (3.5-5.1) L Chloride Level 123 MMOL/L (98-107) H Carbon Dioxide Level 30 MMOL/L (21-32) Anion Gap 5 mmol/L (5-15) Blood Urea Nitrogen 24 mg/dL (7-18) H Creatinine 1.2 MG/DL (0.55-1.30) Estimat Glomerular Filtration Rate 46.0 mL/min (>60) Glucose Level 118 MG/DL (74-106) H Calcium Level 9.8 MG/DL (8.5-10.1) Phosphorus Level 2.4 MG/DL (2.5-4.9) L Magnesium Level 2.8 MG/DL (1.8-2.4) H Total Bilirubin 0.5 MG/DL (0.2-1.0) Aspartate Amino Transf (AST/SGOT) 22 U/L (15-37) Alanine Aminotransferase (ALT/SGPT) 45 U/L (12-78) Alkaline Phosphatase 135 U/L (46-116) H C-Reactive Protein, Quantitative 3.7 mg/dL (0.00-0.90) H Total Protein 6.2 G/DL (6.4-8.2) L Albumin 2.2 G/DL (3.4-5.0) L Globulin 4.0 g/dL Albumin/Globulin Ratio 0.6 (1.0-2.7) L Vitamin B12 Level 733 PG/ML (193-986) Folate 12.6 NG/ML (3.1-17.5) Thyroid Stimulating Hormone (TSH) 3.187 uiU/mL (0.360-3.740) [place] Level Pending Current Medications Medications (Trade) Dose Ordered Sig/Robert Route PRN Reason Start Time Stop Time Status Last Admin Dose Admin Dextrose 1,000 ml @ 100 mls/hr Q10H IV 05/10/17 16:00 06/09/17 15:59 05/12/17 10:02 Dextrose (Dextrose 50%) STAT PRN IV Hypoglycemia 05/10/17 02:30 06/09/17 02:29 Docusate Sodium (Colace) 100 mg THREE TIMES A DAY ORAL 05/10/17 13:30 06/09/17 13:29 05/12/17 18:19 Heparin Sodium (Porcine) (Heparin 5000 units/ml) 5,000 units EVERY 12 HOURS SUBQ 05/10/17 09:00 06/09/17 08:59 05/12/17 10:00 Insulin Aspart (NovoLOG) BEFORE MEALS AND HS SUBQ 05/10/17 06:30 06/09/17 06:29 05/12/17 12:44 [place] Carbonate ([place] Carbonate) 600 mg BEDTIME ORAL 05/10/17 21:00 06/09/17 08:59 05/11/17 21:54 Lorazepam (Ativan 2mg/ml 1ml) 0.5 mg Q4H PRN IV For Anxiety 05/10/17 00:00 05/17/17 00:00 Ondansetron HCl (Zofran) 4 mg Q6H PRN IVP Nausea & Vomiting 05/10/17 00:00 06/09/17 00:00 Piperacillin/ Tazobactam/ Dextrose 50 ml @ 12.5 mls/hr EVERY 8 HOURS IVPB 05/10/17 14:00 05/15/17 13:59 05/12/17 15:08 Polyethylene Glycol (Miralax) 17 gm BEDTIME ORAL 05/10/17 21:00 06/09/17 20:59 05/11/17 21:54 Quetiapine Fumarate (SEROquel) 200 mg THREE TIMES A DAY ORAL 05/10/17 09:00 06/09/17 08:59 05/12/17 18:20 Height (Feet): 5 Height (Inches): 2.00 Weight (Pounds): 170 General Appearance: well nourished, no apparent distress, alert, poorly groomed , disheveled Psychiatric Behavior: uncooperative Orientation: disoriented Affect: flat Insight: Avery Hubbard M.D. May 12, 2017 21:12
[2017-05-12] MEDS: Miralax 17gm pkt ORAL SCH (21:31)
[2017-05-12] MEDS ORDERED: Heparin 2000 units/Ns 1000ml INJ PRN (23:00)
[2017-05-12] MEDS ORDERED: Lidocaine 1% Plain 30 ml INJ PRN (23:00)
[2017-05-13] VITALS (7 sets, daily range): BP systolic 112–146; BP diastolic 61–78
[2017-05-13] MEDS ORDERED: Levofloxacin 500mg tab GT ONE
[2017-05-13] MEDS: Zosyn 3.375gm q8h **Extended infusion IVPB SCH (06:00)
[2017-05-13] MEDS: NovoLOG Insulin Flexpen SUBQ SCH ×4 (06:24→21:00)
[2017-05-13 07:23] LABS: ANION GAP 3 mmol/L (5-15); CALCIUM 9.6 MG/DL (8.5-10.1); CARBON DIOXIDE 33 MMOL/L (21-32); CHLORIDE 124 MMOL/L (98-107); GLOMERULAR FILTRATION RATE 56.8 mL/min (>60); MAGNESIUM 2.5 MG/DL (1.8-2.4); PHOSPHORUS 3.5 MG/DL (2.5-4.9); POTASSIUM 4.1 MMOL/L (3.5-5.1); SODIUM 159 MMOL/L (136-145)
[2017-05-13 07:43] LABS: BASOPHILS % (AUTO) 1.2 % (0.0-2.0); EOSINOPHILS % (AUTO) 0.1 % (0.0-3.0); LYMPHOCYTES % (AUTO) 17.1 % (20.0-45.0); MEAN CORPUSCULAR HEMOGLOBIN 29.9 PG (27.0-31.0); MEAN CORPUSCULAR HGB CONC 28.8 G/DL (32.0-36.0); MEAN CORPUSCULAR VOLUME 104 FL (80-99); MEAN PLATELET VOLUME 8.5 FL (6.5-10.1); MONOCYTES % (AUTO) 5.8 % (1.0-10.0); NEUTROPHILS % (AUTO) 75.8 % (45.0-75.0); PLATELET COUNT 239 K/UL (150-450); RED BLOOD COUNT 3.23 M/UL (4.20-5.40); RED CELL DISTRIBUTION WIDTH 18.4 % (11.6-14.8)
[2017-05-13] MEDS: QUEtiapine 200mg tab ORAL SCH ×3 (08:45→17:22)
[2017-05-13] MEDS: Heparin 5000 units/ml inj SUBQ SCH ×2 (08:52→22:08)
[2017-05-13] MEDS: Docusate 100mg cap ORAL SCH ×3 (08:54→17:22)
--- NOTE | 2017-05-13 09:31 | Infectious Diseases Prog Note ---
Assessment/Plan Assessment/Plan ASSESSMENT: The patient is a 57-year-old female with: Pyuria/possible urinary tract infection, UCx: Kleb , Sp Rx Lethargy Hypertension Status post trach that was removed on 05/07/2017. GERD. Diabetes. Schizophrenia/bipolar disorder PLAN: monitor Pt off of AB Rx 05/12SP Levaquin x 1 05/12 IV Zosyn d# 3 / 3 Monitor CBC Monitor BMP Subjective Constitutional: Denies: no symptoms, fever, chills, fatigue, anorexia, drenching sweats, other Respiratory: Reports: no symptoms Allergies: Coded Allergies: No Known Allergies (Unverified , 05/09/17) Objective Vital Signs Last 24 Hour Vital Signs Date Time Temp Pulse Resp B/P (MAP) Pulse Ox O2 Delivery O2 Flow Rate FiO2 05/13/17 07:45 97.8 95 21 138/70 96 Room Air 05/13/17 04:07 97.2 99 18 129/78 95 Room Air 05/13/17 00:00 96.8 100 20 136/61 99 Room Air 05/12/17 20:00 97.3 102 20 105/43 100 Room Air 05/12/17 18:23 97.2 92 20 135/71 96 Room Air 05/12/17 16:00 95.9 92 20 135/71 96 Room Air 05/12/17 12:00 95.5 100 20 127/74 95 Room Air Height (Feet): 5 Height (Inches): 2.00 Weight (Pounds): 170 Laboratory Tests Test 05/13/17 05:30 White Blood Count 7.0 K/UL (4.8-10.8) Red Blood Count 3.23 M/UL (4.20-5.40) L Hemoglobin 9.7 G/DL (12.0-16.0) L Hematocrit 33.5 % (37.0-47.0) L Mean Corpuscular Volume 104 FL (80-99) H Mean Corpuscular Hemoglobin 29.9 PG (27.0-31.0) Mean Corpuscular Hemoglobin Concent 28.8 G/DL (32.0-36.0) L Red Cell Distribution Width 18.4 % (11.6-14.8) H Platelet Count 239 K/UL (150-450) Mean Platelet Volume 8.5 FL (6.5-10.1) Neutrophils (%) (Auto) 75.8 % (45.0-75.0) H Lymphocytes (%) (Auto) 17.1 % (20.0-45.0) L Monocytes (%) (Auto) 5.8 % (1.0-10.0) Eosinophils (%) (Auto) 0.1 % (0.0-3.0) Basophils (%) (Auto) 1.2 % (0.0-2.0) Sodium Level 159 MMOL/L (136-145) H Potassium Level 4.1 MMOL/L (3.5-5.1) Chloride Level 124 MMOL/L (98-107) H Carbon Dioxide Level 33 MMOL/L (21-32) H Anion Gap 3 mmol/L (5-15) L Blood Urea Nitrogen 24 mg/dL (7-18) H Creatinine 1.0 MG/DL (0.55-1.30) Estimat Glomerular Filtration Rate 56.8 mL/min (>60) Glucose Level 114 MG/DL (74-106) H Calcium Level 9.6 MG/DL (8.5-10.1) Phosphorus Level 3.5 MG/DL (2.5-4.9) Magnesium Level 2.5 MG/DL (1.8-2.4) H Current Medications Medications (Trade) Dose Ordered Sig/Robert Route PRN Reason Start Time Stop Time Status Last Admin Dose Admin Chlorhexidine Gluconate (Karley-Hex 2%) 1 applic DAILY@2000 TOPIC 05/13/17 20:00 06/12/17 19:59 Dextrose 1,000 ml @ 100 mls/hr Q10H IV 05/10/17 16:00 06/09/17 15:59 05/12/17 10:02 Dextrose (Dextrose 50%) STAT PRN IV Hypoglycemia 05/10/17 02:30 06/09/17 02:29 Docusate Sodium (Colace) 100 mg THREE TIMES A DAY ORAL 05/10/17 13:30 06/09/17 13:29 05/13/17 08:54 Heparin Sodium (Porcine) (Heparin 5000 units/ml) 5,000 units EVERY 12 HOURS SUBQ 05/10/17 09:00 06/09/17 08:59 05/13/17 08:52 Heparin Sodium/ Sodium Chloride (Heparin 2000 units/Ns 1000ml premix) 2,000 unit ONCE PRN INJ PICC LINE 05/12/17 23:00 05/13/17 22:59 Insulin Aspart (NovoLOG) BEFORE MEALS AND HS SUBQ 05/10/17 06:30 06/09/17 06:29 05/13/17 06:24 Levofloxacin (Levaquin) 250 mg Q24H GT 05/13/17 21:00 05/20/17 20:59 Lidocaine HCl (Xylocaine 1% 30ml) 30 ml ONCE PRN INJ PICC LINE 05/12/17 23:00 05/13/17 22:59 [place] Carbonate ([place] Carbonate) 600 mg BEDTIME ORAL 05/10/17 21:00 06/09/17 08:59 05/12/17 21:30 Lorazepam (Ativan 2mg/ml 1ml) 0.5 mg Q4H PRN IV For Anxiety 05/10/17 00:00 05/17/17 00:00 Ondansetron HCl (Zofran) 4 mg Q6H PRN IVP Nausea & Vomiting 05/10/17 00:00 06/09/17 00:00 Piperacillin/ Tazobactam/ Dextrose 50 ml @ 12.5 mls/hr EVERY 8 HOURS IVPB 05/10/17 14:00 05/15/17 13:59 05/12/17 15:08 Polyethylene Glycol (Miralax) 17 gm BEDTIME ORAL 05/10/17 21:00 06/09/17 20:59 05/12/17 21:31 Quetiapine Fumarate (SEROquel) 200 mg THREE TIMES A DAY ORAL 05/10/17 09:00 06/09/17 08:59 05/13/17 08:45 CHIQUI ROONEY M.D. May 13, 2017 09:31
--- NOTE | 2017-05-13 11:03 | General Progress Note ---
Progress Note Progress Note pt needs a PICC line, doesn't have any family or friend to consent. she is not capable of signing herself. ANYI ALEGRIA May 13, 2017 11:03
--- NOTE | 2017-05-13 14:32 | Nephrology Progress Note ---
Assessment/Plan Problem List: (1) ATN (acute tubular necrosis) (2) Dehydration (3) UTI (urinary tract infection) (4) Anemia Assessment status: (1) Acte renal failure- dehydration- not been receiving enough free water due to poor iv line (2) Schizo-affective schizophrenia (3) Gastrostomy tube dysfunction (4) UTI (urinary tract infection) (5) Failure to Thrive (6) Anemia Plan Plan: PICC line and D5 add JUAN J kline to labs todays labs reviewed K Phos IV hydrate- Monitor lytes- Urine studies- per Psych Subjective ROS Limited/Unobtainable: No Constitutional: Reports: malaise Objective Objective Last 24 Hour Vital Signs Date Time Temp Pulse Resp B/P (MAP) Pulse Ox O2 Delivery O2 Flow Rate FiO2 05/13/17 11:25 98.0 101 20 133/75 97 Room Air 05/13/17 07:45 97.8 95 21 138/70 96 Room Air 05/13/17 04:07 97.2 99 18 129/78 95 Room Air 05/13/17 00:00 96.8 100 20 136/61 99 Room Air 05/12/17 20:00 97.3 102 20 105/43 100 Room Air 05/12/17 18:23 97.2 92 20 135/71 96 Room Air 05/12/17 16:00 95.9 92 20 135/71 96 Room Air Intake and Output 05/13/17 05/14/17 19:00 07:00 Intake Total 340 ml Output Total 500 ml Balance -160 ml Intake Oral 0 ml Free Water 100 ml Tube Feeding 240 ml Output Urine Total 500 ml Laboratory Tests 05/13/17 05:30: White Blood Count 7.0, Red Blood Count 3.23L, Hemoglobin 9.7L, Hematocrit 33.5L , Mean Corpuscular Volume 104H, Mean Corpuscular Hemoglobin 29.9, Mean Corpuscular Hemoglobin Concent 28.8L, Red Cell Distribution Width 18.4H, Platelet Count 239, Mean Platelet Volume 8.5, Neutrophils (%) (Auto) 75.8H, Lymphocytes (%) (Auto) 17.1L, Monocytes (%) (Auto) 5.8, Eosinophils (%) (Auto) 0.1, Basophils (%) (Auto) 1.2, Sodium Level 159H, Potassium Level 4.1, Chloride Level 124H, Carbon Dioxide Level 33H, Anion Gap 3L, Blood Urea Nitrogen 24H, Creatinine 1.0, Estimat Glomerular Filtration Rate 56.8, Glucose Level 114H, Calcium Level 9.6, Phosphorus Level 3.5, Magnesium Level 2.5H Height (Feet): 5 Height (Inches): 2.00 Weight (Pounds): 170 General Appearance: no apparent distress, lethargic Objective no other changes ATILIO GARCIA May 13, 2017 14:32
--- NOTE | 2017-05-13 14:50 | GI Progress Note ---
Assessment/Plan Problems: (1) Dehydration ICD Codes: E86.0 - Dehydration SNOMED: 17662687 (2) Gastrostomy tube dysfunction ICD Codes: K94.23 - Gastrostomy malfunction SNOMED: 780380405 (3) Failure to thrive in adult ICD Codes: R62.7 - Adult failure to thrive SNOMED: 508211731 (4) Anemia ICD Codes: D64.9 - Anemia, unspecified SNOMED: 974117564 Qualifiers: Qualified Codes: D64.9 - Anemia, unspecified (5) Proteinuria ICD Codes: R80.9 - Proteinuria, unspecified SNOMED: 16076567 Qualifiers: Qualified Codes: R80.9 - Proteinuria, unspecified Status: unchanged Status Narrative Discussed with Dr. Elizabeth. Assessment/Plan ST evaluation for PO grat GT changed 2nd time, patient pulled. GTFs per dietary, tolerating frequent turn q2-4 hours OB stool r/o GI bleed monitor H&H, prn transfusions bowel regime electrolyte correction >> D5W ppi fu labs Subjective Subjective limited Objective Last 24 Hour Vital Signs Date Time Temp Pulse Resp B/P (MAP) Pulse Ox O2 Delivery O2 Flow Rate FiO2 05/13/17 11:25 98.0 101 20 133/75 97 Room Air 05/13/17 07:45 97.8 95 21 138/70 96 Room Air 05/13/17 04:07 97.2 99 18 129/78 95 Room Air 05/13/17 00:00 96.8 100 20 136/61 99 Room Air 05/12/17 20:00 97.3 102 20 105/43 100 Room Air 05/12/17 18:23 97.2 92 20 135/71 96 Room Air 05/12/17 16:00 95.9 92 20 135/71 96 Room Air Intake and Output 05/13/17 05/14/17 19:00 07:00 Intake Total 340 ml Output Total 500 ml Balance -160 ml Intake Oral 0 ml Free Water 100 ml Tube Feeding 240 ml Output Urine Total 500 ml Laboratory Tests Test 05/13/17 05:30 White Blood Count 7.0 K/UL (4.8-10.8) Red Blood Count 3.23 M/UL (4.20-5.40) L Hemoglobin 9.7 G/DL (12.0-16.0) L Hematocrit 33.5 % (37.0-47.0) L Mean Corpuscular Volume 104 FL (80-99) H Mean Corpuscular Hemoglobin 29.9 PG (27.0-31.0) Mean Corpuscular Hemoglobin Concent 28.8 G/DL (32.0-36.0) L Red Cell Distribution Width 18.4 % (11.6-14.8) H Platelet Count 239 K/UL (150-450) Mean Platelet Volume 8.5 FL (6.5-10.1) Neutrophils (%) (Auto) 75.8 % (45.0-75.0) H Lymphocytes (%) (Auto) 17.1 % (20.0-45.0) L Monocytes (%) (Auto) 5.8 % (1.0-10.0) Eosinophils (%) (Auto) 0.1 % (0.0-3.0) Basophils (%) (Auto) 1.2 % (0.0-2.0) Sodium Level 159 MMOL/L (136-145) H Potassium Level 4.1 MMOL/L (3.5-5.1) Chloride Level 124 MMOL/L (98-107) H Carbon Dioxide Level 33 MMOL/L (21-32) H Anion Gap 3 mmol/L (5-15) L Blood Urea Nitrogen 24 mg/dL (7-18) H Creatinine 1.0 MG/DL (0.55-1.30) Estimat Glomerular Filtration Rate 56.8 mL/min (>60) Glucose Level 114 MG/DL (74-106) H Calcium Level 9.6 MG/DL (8.5-10.1) Phosphorus Level 3.5 MG/DL (2.5-4.9) Magnesium Level 2.5 MG/DL (1.8-2.4) H Height (Feet): 5 Height (Inches): 2.00 Weight (Pounds): 170 General Appearance: WD/WN, no apparent distress, alert, obese Cardiovascular: normal rate Respiratory/Chest: normal breath sounds, no respiratory distress Abdominal Exam: normal bowel sounds, non tender, soft, GT site - c/d/i Extremities: normal range of motion, non-tender Eav Alcocer N.P. May 13, 2017 14:50
--- NOTE | 2017-05-13 14:57 | Pulmonology Progress Note ---
Assessment/Plan Problems: (1) ATN (acute tubular necrosis) (2) Schizo-affective schizophrenia (3) Gastrostomy tube dysfunction (4) UTI (urinary tract infection) Assessment/Plan iv fluids GI f/u Renal consult check electrolytes for picc line today Subjective ROS Limited/Unobtainable: No Constitutional: Reports: no symptoms HEENT: Repors: no symptoms Allergies: Coded Allergies: No Known Allergies (Unverified , 05/09/17) Objective Last 24 Hour Vital Signs Date Time Temp Pulse Resp B/P (MAP) Pulse Ox O2 Delivery O2 Flow Rate FiO2 05/13/17 11:25 98.0 101 20 133/75 97 Room Air 05/13/17 07:45 97.8 95 21 138/70 96 Room Air 05/13/17 04:07 97.2 99 18 129/78 95 Room Air 05/13/17 00:00 96.8 100 20 136/61 99 Room Air 05/12/17 20:00 97.3 102 20 105/43 100 Room Air 05/12/17 18:23 97.2 92 20 135/71 96 Room Air 05/12/17 16:00 95.9 92 20 135/71 96 Room Air Intake and Output 05/13/17 05/14/17 19:00 07:00 Intake Total 340 ml Output Total 500 ml Balance -160 ml Intake Oral 0 ml Free Water 100 ml Tube Feeding 240 ml Output Urine Total 500 ml Objective General Appearance: WD/WN, no apparent distress Lines, tubes and drains: peripheral, HEENT: normocephalic, anicteric Neck: non-tender, normal alignment Respiratory/Chest: chest wall non-tender, lungs clear Cardiovascular/Chest: normal rate, regular rhythm Abdomen: non tender, soft Genitourinary/Rectal: normal genital exam, normal rectal exam Extremities: normal range of motion, non-pitting Laboratory Tests 05/13/17 05:30: White Blood Count 7.0, Red Blood Count 3.23L, Hemoglobin 9.7L, Hematocrit 33.5L , Mean Corpuscular Volume 104H, Mean Corpuscular Hemoglobin 29.9, Mean Corpuscular Hemoglobin Concent 28.8L, Red Cell Distribution Width 18.4H, Platelet Count 239, Mean Platelet Volume 8.5, Neutrophils (%) (Auto) 75.8H, Lymphocytes (%) (Auto) 17.1L, Monocytes (%) (Auto) 5.8, Eosinophils (%) (Auto) 0.1, Basophils (%) (Auto) 1.2, Sodium Level 159H, Potassium Level 4.1, Chloride Level 124H, Carbon Dioxide Level 33H, Anion Gap 3L, Blood Urea Nitrogen 24H, Creatinine 1.0, Estimat Glomerular Filtration Rate 56.8, Glucose Level 114H, Calcium Level 9.6, Phosphorus Level 3.5, Magnesium Level 2.5H Current Medications Medications (Trade) Dose Ordered Sig/Robert Route PRN Reason Start Time Stop Time Status Last Admin Dose Admin Chlorhexidine Gluconate (Karley-Hex 2%) 1 applic DAILY@2000 TOPIC 05/13/17 20:00 06/12/17 19:59 Dextrose 1,000 ml @ 100 mls/hr Q10H IV 05/10/17 16:00 06/09/17 15:59 05/12/17 10:02 Dextrose (Dextrose 50%) STAT PRN IV Hypoglycemia 05/10/17 02:30 06/09/17 02:29 Docusate Sodium (Colace) 100 mg THREE TIMES A DAY ORAL 05/10/17 13:30 06/09/17 13:29 05/13/17 13:17 Heparin Sodium (Porcine) (Heparin 5000 units/ml) 5,000 units EVERY 12 HOURS SUBQ 05/10/17 09:00 06/09/17 08:59 05/13/17 08:52 Heparin Sodium/ Sodium Chloride (Heparin 2000 units/Ns 1000ml premix) 2,000 unit ONCE PRN INJ PICC LINE 05/12/17 23:00 05/13/17 22:59 Insulin Aspart (NovoLOG) BEFORE MEALS AND HS SUBQ 05/10/17 06:30 06/09/17 06:29 05/13/17 11:50 Lidocaine HCl (Xylocaine 1% 30ml) 30 ml ONCE PRN INJ PICC LINE 05/12/17 23:00 05/13/17 22:59 [place] Carbonate ([place] Carbonate) 600 mg BEDTIME ORAL 05/10/17 21:00 06/09/17 08:59 05/12/17 21:30 Lorazepam (Ativan 2mg/ml 1ml) 0.5 mg Q4H PRN IV For Anxiety 05/10/17 00:00 05/17/17 00:00 Ondansetron HCl (Zofran) 4 mg Q6H PRN IVP Nausea & Vomiting 05/10/17 00:00 06/09/17 00:00 Polyethylene Glycol (Miralax) 17 gm BEDTIME ORAL 05/10/17 21:00 06/09/17 20:59 05/12/17 21:31 Quetiapine Fumarate (SEROquel) 200 mg THREE TIMES A DAY ORAL 05/10/17 09:00 06/09/17 08:59 05/13/17 13:17 ANYI ALEGRIA May 13, 2017 14:57
[2017-05-13] MEDS: Miralax 17gm pkt ORAL SCH (21:51)
[2017-05-13] MEDS: Dyna-Hex 2% Top Sol 2oz TOPIC SCH (22:04)
--- NOTE | 2017-05-13 22:48 | General Progress Note ---
Assessment/Plan Status: stable, progressing Assessment/Plan encephalopathy agitated seroquel 300mg qhs lithoum 600mg Subjective Neurologic/Psychiatric: Reports: anxiety, depressed, emotional problems Allergies: Coded Allergies: No Known Allergies (Unverified , 05/09/17) Subjective the pt was agitated and attempting to come out of bed Objective Last 24 Hour Vital Signs Date Time Temp Pulse Resp B/P (MAP) Pulse Ox O2 Delivery O2 Flow Rate FiO2 05/13/17 19:58 95.9 95 20 112/66 94 Room Air 05/13/17 16:04 97.0 100 20 146/73 95 Room Air 05/13/17 11:25 98.0 101 20 133/75 97 Room Air 05/13/17 07:45 97.8 95 21 138/70 96 Room Air 05/13/17 04:07 97.2 99 18 129/78 95 Room Air 05/13/17 00:00 96.8 100 20 136/61 99 Room Air Intake and Output 05/13/17 05/14/17 19:00 07:00 Intake Total 1270 ml 700 ml Output Total 1000 ml Balance 270 ml 700 ml Intake Oral 0 ml Free Water 300 ml 220 ml IV Total 250 ml 300 ml Tube Feeding 720 ml 180 ml Output Urine Total 1000 ml Laboratory Tests 05/13/17 05:30: White Blood Count 7.0, Red Blood Count 3.23L, Hemoglobin 9.7L, Hematocrit 33.5L , Mean Corpuscular Volume 104H, Mean Corpuscular Hemoglobin 29.9, Mean Corpuscular Hemoglobin Concent 28.8L, Red Cell Distribution Width 18.4H, Platelet Count 239, Mean Platelet Volume 8.5, Neutrophils (%) (Auto) 75.8H, Lymphocytes (%) (Auto) 17.1L, Monocytes (%) (Auto) 5.8, Eosinophils (%) (Auto) 0.1, Basophils (%) (Auto) 1.2, Sodium Level 159H, Potassium Level 4.1, Chloride Level 124H, Carbon Dioxide Level 33H, Anion Gap 3L, Blood Urea Nitrogen 24H, Creatinine 1.0, Estimat Glomerular Filtration Rate 56.8, Glucose Level 114H, Calcium Level 9.6, Phosphorus Level 3.5, Magnesium Level 2.5H Height (Feet): 5 Height (Inches): 2.00 Weight (Pounds): 170 General Appearance: no apparent distress, alert, confused Neurologic: alert, responsive, disoriented, depressed affect Avery Dang M.D. May 13, 2017 22:48
[2017-05-14 03:57] VITALS: BP 141/76
[2017-05-14 05:45] LABS: BASOPHILS % (AUTO) 1.2 % (0.0-2.0); EOSINOPHILS % (AUTO) 0.1 % (0.0-3.0); LYMPHOCYTES % (AUTO) 18.3 % (20.0-45.0); MEAN CORPUSCULAR HEMOGLOBIN 31.2 PG (27.0-31.0); MEAN CORPUSCULAR HGB CONC 30.9 G/DL (32.0-36.0); MEAN CORPUSCULAR VOLUME 101 FL (80-99); MEAN PLATELET VOLUME 9.6 FL (6.5-10.1); MONOCYTES % (AUTO) 5.5 % (1.0-10.0); PLATELET COUNT 239 K/UL (150-450); RED BLOOD COUNT 3.26 M/UL (4.20-5.40); RED CELL DISTRIBUTION WIDTH 17.8 % (11.6-14.8); WHITE BLOOD COUNT 5.8 K/UL (4.8-10.8)
[2017-05-14 05:52] LABS: ANION GAP 4 mmol/L (5-15); CALCIUM 9.4 MG/DL (8.5-10.1); CARBON DIOXIDE 31 MMOL/L (21-32); CHLORIDE 119 MMOL/L (98-107); CREATININE 0.9 MG/DL (0.55-1.30); GLOMERULAR FILTRATION RATE > 60 mL/min (>60); POTASSIUM 3.6 MMOL/L (3.5-5.1); SODIUM 154 MMOL/L (136-145)
[2017-05-14] MEDS: NovoLOG Insulin Flexpen SUBQ SCH ×5 (06:06→21:02)
[2017-05-14 08:02] VITALS: BP 138/75
--- NOTE | 2017-05-14 08:16 | Nephrology Progress Note ---
Assessment/Plan Problem List: (1) ATN (acute tubular necrosis) (2) Dehydration (3) UTI (urinary tract infection) (4) Anemia Assessment status: (1) Acte renal failure- dehydration- not been receiving enough free water due to poor iv line, now has PICC (2) Schizo-affective schizophrenia (3) Gastrostomy tube dysfunction (4) UTI (urinary tract infection) (5) Failure to Thrive (6) Anemia Plan Plan: PICC line and D5 todays labs reviewed, Na lower K Phos IV as needed hydrate- Monitor lytes- Urine studies- per Psych Subjective ROS Limited/Unobtainable: No Objective Objective Last 24 Hour Vital Signs Date Time Temp Pulse Resp B/P (MAP) Pulse Ox O2 Delivery O2 Flow Rate FiO2 05/14/17 08:02 97.4 98 20 138/75 95 Room Air 05/14/17 03:57 97.9 90 20 141/76 97 Room Air 05/13/17 23:57 97.5 95 20 143/78 96 Room Air 05/13/17 19:58 95.9 95 20 112/66 94 Room Air 05/13/17 16:04 97.0 100 20 146/73 95 Room Air 05/13/17 11:25 98.0 101 20 133/75 97 Room Air Laboratory Tests 05/14/17 04:30: White Blood Count 5.8, Red Blood Count 3.26L, Hemoglobin 10.2L, Hematocrit 32.9L , Mean Corpuscular Volume 101H, Mean Corpuscular Hemoglobin 31.2H, Mean Corpuscular Hemoglobin Concent 30.9L, Red Cell Distribution Width 17.8H, Platelet Count 239, Mean Platelet Volume 9.6, Neutrophils (%) (Auto) 75.0, Lymphocytes (%) (Auto) 18.3L, Monocytes (%) (Auto) 5.5, Eosinophils (%) (Auto) 0.1, Basophils (%) (Auto) 1.2, Sodium Level 154H, Potassium Level 3.6, Chloride Level 119H, Carbon Dioxide Level 31, Anion Gap 4L, Blood Urea Nitrogen 16, Creatinine 0.9, Estimat Glomerular Filtration Rate > 60, Glucose Level 127H, Calcium Level 9.4 Height (Feet): 5 Height (Inches): 2.00 Weight (Pounds): 170 Objective no other changes FOULADIAN,ATILIO May 14, 2017 08:16
[2017-05-14] MEDS: Docusate 100mg cap ORAL SCH ×3 (08:37→16:48)
[2017-05-14] MEDS: Heparin 5000 units/ml inj SUBQ SCH ×2 (08:39→21:01)
--- NOTE | 2017-05-14 09:15 | Pulmonology Progress Note ---
Assessment/Plan Problems: (1) ATN (acute tubular necrosis) (2) Schizo-affective schizophrenia (3) Gastrostomy tube dysfunction (4) UTI (urinary tract infection) Assessment/Plan iv fluids GI f/u Renal consult appreciated check electrolytes picc line done yesterday Na is lower today dc back to [facility] in am if Na is lower Subjective ROS Limited/Unobtainable: No HEENT: Repors: no symptoms Respiratory: Reports: no symptoms Allergies: Coded Allergies: No Known Allergies (Unverified , 05/09/17) Objective Last 24 Hour Vital Signs Date Time Temp Pulse Resp B/P (MAP) Pulse Ox O2 Delivery O2 Flow Rate FiO2 05/14/17 08:02 97.4 98 20 138/75 95 Room Air 05/14/17 03:57 97.9 90 20 141/76 97 Room Air 05/13/17 23:57 97.5 95 20 143/78 96 Room Air 05/13/17 19:58 95.9 95 20 112/66 94 Room Air 05/13/17 16:04 97.0 100 20 146/73 95 Room Air 05/13/17 11:25 98.0 101 20 133/75 97 Room Air Objective General Appearance: WD/WN, no apparent distress Lines, tubes and drains: peripheral, HEENT: normocephalic, anicteric Neck: non-tender, normal alignment Respiratory/Chest: chest wall non-tender, lungs clear Cardiovascular/Chest: normal rate, regular rhythm Abdomen: non tender, soft Genitourinary/Rectal: normal genital exam, normal rectal exam Extremities: normal range of motion, non-pitting Laboratory Tests 05/14/17 04:30: White Blood Count 5.8, Red Blood Count 3.26L, Hemoglobin 10.2L, Hematocrit 32.9L , Mean Corpuscular Volume 101H, Mean Corpuscular Hemoglobin 31.2H, Mean Corpuscular Hemoglobin Concent 30.9L, Red Cell Distribution Width 17.8H, Platelet Count 239, Mean Platelet Volume 9.6, Neutrophils (%) (Auto) 75.0, Lymphocytes (%) (Auto) 18.3L, Monocytes (%) (Auto) 5.5, Eosinophils (%) (Auto) 0.1, Basophils (%) (Auto) 1.2, Sodium Level 154H, Potassium Level 3.6, Chloride Level 119H, Carbon Dioxide Level 31, Anion Gap 4L, Blood Urea Nitrogen 16, Creatinine 0.9, Estimat Glomerular Filtration Rate > 60, Glucose Level 127H, Calcium Level 9.4 Current Medications Medications (Trade) Dose Ordered Sig/Robert Route PRN Reason Start Time Stop Time Status Last Admin Dose Admin Chlorhexidine Gluconate (Karley-Hex 2%) 1 applic DAILY@2000 TOPIC 05/13/17 20:00 06/12/17 19:59 05/13/17 22:04 Dextrose 1,000 ml @ 100 mls/hr Q10H IV 05/10/17 16:00 06/09/17 15:59 05/14/17 08:40 Dextrose (Dextrose 50%) STAT PRN IV Hypoglycemia 05/10/17 02:30 06/09/17 02:29 Docusate Sodium (Colace) 100 mg THREE TIMES A DAY ORAL 05/10/17 13:30 06/09/17 13:29 05/14/17 08:37 Heparin Sodium (Porcine) (Heparin 5000 units/ml) 5,000 units EVERY 12 HOURS SUBQ 05/10/17 09:00 06/09/17 08:59 05/14/17 08:39 Insulin Aspart (NovoLOG) BEFORE MEALS AND HS SUBQ 05/10/17 06:30 06/09/17 06:29 05/13/17 17:25 [place] Carbonate ([place] Carbonate) 600 mg BEDTIME ORAL 05/10/17 21:00 06/09/17 08:59 05/13/17 21:51 Lorazepam (Ativan 2mg/ml 1ml) 0.5 mg Q4H PRN IV For Anxiety 05/10/17 00:00 05/17/17 00:00 Ondansetron HCl (Zofran) 4 mg Q6H PRN IVP Nausea & Vomiting 05/10/17 00:00 06/09/17 00:00 Polyethylene Glycol (Miralax) 17 gm BEDTIME ORAL 05/10/17 21:00 06/09/17 20:59 05/13/17 21:51 Quetiapine Fumarate (SEROquel) 300 mg BEDTIME ORAL 05/14/17 21:00 06/13/17 20:59 ANYI ALEGRIA May 14, 2017 09:15
[2017-05-14] MEDS ORDERED: Tubing IV Secondary IV ONE (09:46)
--- NOTE | 2017-05-14 10:21 | General Progress Note ---
Assessment/Plan Problem List: (1) Dehydration ICD Codes: E86.0 - Dehydration SNOMED: 20393653 (2) ATN (acute tubular necrosis) ICD Codes: N17.0 - Acute kidney failure with tubular necrosis SNOMED: 06429960 (3) Gastrostomy tube dysfunction ICD Codes: K94.23 - Gastrostomy malfunction SNOMED: 939028050 (4) Failure to thrive in adult ICD Codes: R62.7 - Adult failure to thrive SNOMED: 029980398 (5) Anemia ICD Codes: D64.9 - Anemia, unspecified SNOMED: 796467993 Qualifiers: Qualified Codes: D64.9 - Anemia, unspecified Assessment/Plan ST evaluation for PO grat GT changed 2nd time, patient pulled. GTFs per dietary, tolerating frequent turn q2-4 hours OB stool r/o GI bleed monitor H&H, prn transfusions bowel regime electrolyte correction >> D5W ppi fu labs Subjective ROS Limited/Unobtainable: No Allergies: Coded Allergies: No Known Allergies (Unverified , 05/09/17) Objective Last 24 Hour Vital Signs Date Time Temp Pulse Resp B/P (MAP) Pulse Ox O2 Delivery O2 Flow Rate FiO2 05/14/17 08:02 97.4 98 20 138/75 95 Room Air 05/14/17 03:57 97.9 90 20 141/76 97 Room Air 05/13/17 23:57 97.5 95 20 143/78 96 Room Air 05/13/17 19:58 95.9 95 20 112/66 94 Room Air 05/13/17 16:04 97.0 100 20 146/73 95 Room Air 05/13/17 11:25 98.0 101 20 133/75 97 Room Air Intake and Output 05/14/17 05/15/17 19:00 07:00 # Bowel Movements 1 Laboratory Tests 05/14/17 04:30: White Blood Count 5.8, Red Blood Count 3.26L, Hemoglobin 10.2L, Hematocrit 32.9L , Mean Corpuscular Volume 101H, Mean Corpuscular Hemoglobin 31.2H, Mean Corpuscular Hemoglobin Concent 30.9L, Red Cell Distribution Width 17.8H, Platelet Count 239, Mean Platelet Volume 9.6, Neutrophils (%) (Auto) 75.0, Lymphocytes (%) (Auto) 18.3L, Monocytes (%) (Auto) 5.5, Eosinophils (%) (Auto) 0.1, Basophils (%) (Auto) 1.2, Sodium Level 154H, Potassium Level 3.6, Chloride Level 119H, Carbon Dioxide Level 31, Anion Gap 4L, Blood Urea Nitrogen 16, Creatinine 0.9, Estimat Glomerular Filtration Rate > 60, Glucose Level 127H, Calcium Level 9.4 Height (Feet): 5 Height (Inches): 2.00 Weight (Pounds): 170 General Appearance: no apparent distress EENT: normal ENT inspection Neck: supple Cardiovascular: normal rate Respiratory/Chest: decreased breath sounds Abdomen: normal bowel sounds, non tender, soft Extremities: non-tender JIMMY MEYERS May 14, 2017 10:21
--- NOTE | 2017-05-14 10:25 | Infectious Diseases Prog Note ---
Assessment/Plan Assessment/Plan ASSESSMENT: The patient is a 57-year-old female with: Pyuria/possible urinary tract infection, UCx: Kleb , Sp Rx Lethargy Hypertension Status post trach that was removed on 05/07/2017. GERD. Diabetes. Schizophrenia/bipolar disorder PLAN: monitor Pt off of AB Rx 05/12SP Levaquin x 1 05/12 IV Zosyn d# 3 / 3 Monitor CBC Monitor BMP Subjective Allergies: Coded Allergies: No Known Allergies (Unverified , 05/09/17) Subjective afebrile no leukocytosis Bcx NTD Objective Vital Signs Last 24 Hour Vital Signs Date Time Temp Pulse Resp B/P (MAP) Pulse Ox O2 Delivery O2 Flow Rate FiO2 05/14/17 08:02 97.4 98 20 138/75 95 Room Air 05/14/17 03:57 97.9 90 20 141/76 97 Room Air 05/13/17 23:57 97.5 95 20 143/78 96 Room Air 05/13/17 19:58 95.9 95 20 112/66 94 Room Air 05/13/17 16:04 97.0 100 20 146/73 95 Room Air 05/13/17 11:25 98.0 101 20 133/75 97 Room Air Height (Feet): 5 Height (Inches): 2.00 Weight (Pounds): 170 Objective General Appearance: WD/WN, no apparent distress Lines, tubes and drains: peripheral, HEENT: normocephalic, anicteric Neck: non-tender, normal alignment Respiratory/Chest: chest wall non-tender, lungs clear Cardiovascular/Chest: normal rate, regular rhythm Abdomen: non tender, soft Genitourinary/Rectal: normal genital exam, normal rectal exam Extremities: normal range of motion, non-pitting reviewed Laboratory Tests Test 05/14/17 04:30 White Blood Count 5.8 K/UL (4.8-10.8) Red Blood Count 3.26 M/UL (4.20-5.40) L Hemoglobin 10.2 G/DL (12.0-16.0) L Hematocrit 32.9 % (37.0-47.0) L Mean Corpuscular Volume 101 FL (80-99) H Mean Corpuscular Hemoglobin 31.2 PG (27.0-31.0) H Mean Corpuscular Hemoglobin Concent 30.9 G/DL (32.0-36.0) L Red Cell Distribution Width 17.8 % (11.6-14.8) H Platelet Count 239 K/UL (150-450) Mean Platelet Volume 9.6 FL (6.5-10.1) Neutrophils (%) (Auto) 75.0 % (45.0-75.0) Lymphocytes (%) (Auto) 18.3 % (20.0-45.0) L Monocytes (%) (Auto) 5.5 % (1.0-10.0) Eosinophils (%) (Auto) 0.1 % (0.0-3.0) Basophils (%) (Auto) 1.2 % (0.0-2.0) Sodium Level 154 MMOL/L (136-145) H Potassium Level 3.6 MMOL/L (3.5-5.1) Chloride Level 119 MMOL/L (98-107) H Carbon Dioxide Level 31 MMOL/L (21-32) Anion Gap 4 mmol/L (5-15) L Blood Urea Nitrogen 16 mg/dL (7-18) Creatinine 0.9 MG/DL (0.55-1.30) Estimat Glomerular Filtration Rate > 60 mL/min (>60) Glucose Level 127 MG/DL (74-106) H Calcium Level 9.4 MG/DL (8.5-10.1) Current Medications Medications (Trade) Dose Ordered Sig/Robert Route PRN Reason Start Time Stop Time Status Last Admin Dose Admin Chlorhexidine Gluconate (Karley-Hex 2%) 1 applic DAILY@2000 TOPIC 05/13/17 20:00 06/12/17 19:59 05/13/17 22:04 Dextrose 1,000 ml @ 100 mls/hr Q10H IV 05/10/17 16:00 06/09/17 15:59 05/14/17 08:40 Dextrose (Dextrose 50%) STAT PRN IV Hypoglycemia 05/10/17 02:30 06/09/17 02:29 Docusate Sodium (Colace) 100 mg THREE TIMES A DAY ORAL 05/10/17 13:30 06/09/17 13:29 05/14/17 08:37 Heparin Sodium (Porcine) (Heparin 5000 units/ml) 5,000 units EVERY 12 HOURS SUBQ 05/10/17 09:00 06/09/17 08:59 05/14/17 08:39 Insulin Aspart (NovoLOG) BEFORE MEALS AND HS SUBQ 05/10/17 06:30 06/09/17 06:29 05/13/17 17:25 [place] Carbonate ([place] Carbonate) 600 mg BEDTIME ORAL 05/10/17 21:00 06/09/17 08:59 05/13/17 21:51 Lorazepam (Ativan 2mg/ml 1ml) 0.5 mg Q4H PRN IV For Anxiety 05/10/17 00:00 05/17/17 00:00 Ondansetron HCl (Zofran) 4 mg Q6H PRN IVP Nausea & Vomiting 05/10/17 00:00 06/09/17 00:00 Polyethylene Glycol (Miralax) 17 gm BEDTIME ORAL 05/10/17 21:00 06/09/17 20:59 05/13/17 21:51 Quetiapine Fumarate (SEROquel) 300 mg BEDTIME ORAL 05/14/17 21:00 06/13/17 20:59 Karyn Johnston M.D. May 14, 2017 10:25
[2017-05-14 11:45] VITALS: BP 120/78
[2017-05-14 15:58] VITALS: BP 135/74
[2017-05-14 20:00] VITALS: BP 138/78
[2017-05-14] MEDS: Dyna-Hex 2% Top Sol 2oz TOPIC SCH (21:05)
[2017-05-14] MEDS: Miralax 17gm pkt ORAL SCH (21:11)
[2017-05-15] VITALS: BP 129/69
[2017-05-15 04:00] VITALS: BP 137/75
--- NOTE | 2017-05-15 06:29 | General Progress Note ---
Assessment/Plan Problem List: (1) Dehydration ICD Codes: E86.0 - Dehydration SNOMED: 64955874 (2) ATN (acute tubular necrosis) ICD Codes: N17.0 - Acute kidney failure with tubular necrosis SNOMED: 36972292 (3) Gastrostomy tube dysfunction ICD Codes: K94.23 - Gastrostomy malfunction SNOMED: 263504250 (4) Failure to thrive in adult ICD Codes: R62.7 - Adult failure to thrive SNOMED: 385953365 (5) Anemia ICD Codes: D64.9 - Anemia, unspecified SNOMED: 197807528 Qualifiers: Qualified Codes: D64.9 - Anemia, unspecified Assessment/Plan ST evaluation for PO grat GT changed 2nd time, patient pulled. GTFs at 60 cc /o frequent turn q2-4 hours OB stool r/o GI bleed monitor H&H, prn transfusions bowel regime ppi fu labs Subjective ROS Limited/Unobtainable: No Allergies: Coded Allergies: No Known Allergies (Unverified , 05/09/17) Objective Last 24 Hour Vital Signs Date Time Temp Pulse Resp B/P (MAP) Pulse Ox O2 Delivery O2 Flow Rate FiO2 05/15/17 04:00 97.8 95 18 137/75 96 Room Air 05/15/17 00:00 97.9 105 20 129/69 94 Room Air 05/14/17 20:00 97.8 95 20 138/78 96 Room Air 05/14/17 15:58 98.0 93 20 135/74 95 Room Air 05/14/17 11:45 98.0 104 20 120/78 95 Room Air 05/14/17 08:02 97.4 98 20 138/75 95 Room Air Height (Feet): 5 Height (Inches): 2.00 Weight (Pounds): 170 General Appearance: no apparent distress EENT: normal ENT inspection Neck: normal alignment Cardiovascular: normal rate Respiratory/Chest: decreased breath sounds Abdomen: normal bowel sounds, non tender, soft Extremities: non-tender JIMMY MEYERS May 15, 2017 06:29
[2017-05-15] MEDS: NovoLOG Insulin Flexpen SUBQ SCH ×4 (06:33→21:00)
[2017-05-15 07:10] LABS: ALANINE AMINOTRANSFERASE 37 U/L (12-78); ALBUMIN/GLOBULIN RATIO 0.6 (1.0-2.7); ANION GAP 4 mmol/L (5-15); ASPARTATE AMINO TRANSFERASE 21 U/L (15-37); CALCIUM 8.7 MG/DL (8.5-10.1); CARBON DIOXIDE 32 MMOL/L (21-32); CHLORIDE 105 MMOL/L (98-107); CREATININE 0.9 MG/DL (0.55-1.30); GLOMERULAR FILTRATION RATE > 60 mL/min (>60); MAGNESIUM 1.9 MG/DL (1.8-2.4); PHOSPHORUS 2.6 MG/DL (2.5-4.9); POTASSIUM 3.4 MMOL/L (3.5-5.1); SODIUM 140 MMOL/L (136-145); TOTAL PROTEIN 5.5 G/DL (6.4-8.2); URIC ACID 3.2 MG/DL (2.6-7.2)
[2017-05-15 07:45] VITALS: BP 119/71
[2017-05-15] MEDS: Docusate 100mg cap ORAL SCH ×3 (08:11→17:00)
[2017-05-15] MEDS: Heparin 5000 units/ml inj SUBQ SCH ×2 (08:12→21:57)
[2017-05-15] MEDS ORDERED: KCl 10% 40mEq/30ml liquid NG ONE (09:00)
[2017-05-15] MEDS ORDERED: Promethazine/Codeine 5ml UD ORAL PRN (09:45)
--- NOTE | 2017-05-15 09:55 | Nephrology Progress Note ---
Assessment/Plan Problem List: (1) ATN (acute tubular necrosis) (2) Dehydration (3) UTI (urinary tract infection) (4) Anemia Assessment status: (1) Acte renal failure- dehydration- not been receiving enough free water due to poor iv line, now has PICC (2) Schizo-affective schizophrenia (3) Gastrostomy tube dysfunction (4) UTI (urinary tract infection) (5) Failure to Thrive (6) Anemia Plan Plan: PICC line Stop D5 todays labs reviewed, Na lower K Phos IV as needed hydrate- Monitor lytes- Urine studies- per Psych Subjective ROS Limited/Unobtainable: No Objective Objective Last 24 Hour Vital Signs Date Time Temp Pulse Resp B/P (MAP) Pulse Ox O2 Delivery O2 Flow Rate FiO2 05/15/17 07:45 98.4 102 19 119/71 96 Room Air 05/15/17 04:00 97.8 95 18 137/75 96 Room Air 05/15/17 00:00 97.9 105 20 129/69 94 Room Air 05/14/17 20:00 97.8 95 20 138/78 96 Room Air 05/14/17 15:58 98.0 93 20 135/74 95 Room Air 05/14/17 11:45 98.0 104 20 120/78 95 Room Air Intake and Output 05/15/17 05/16/17 19:00 07:00 Output Total 350 ml Balance -350 ml Output Urine Total 350 ml # Voids 2 # Bowel Movements 2 Laboratory Tests 05/15/17 04:40: Sodium Level 140, Potassium Level 3.4L, Chloride Level 105, Carbon Dioxide Level 32, Anion Gap 4L, Blood Urea Nitrogen 11, Creatinine 0.9, Estimat Glomerular Filtration Rate > 60, Glucose Level 451#H, Uric Acid 3.2, Calcium Level 8.7, Phosphorus Level 2.6, Magnesium Level 1.9, Total Bilirubin 0.3, Aspartate Amino Transf (AST/SGOT) 21, Alanine Aminotransferase (ALT/SGPT) 37, Alkaline Phosphatase 116, Total Protein 5.5L, Albumin 2.0L, Globulin 3.5, Albumin/Globulin Ratio 0.6L Height (Feet): 5 Height (Inches): 2.00 Weight (Pounds): 170 General Appearance: no apparent distress Objective no other changes ATILIO GARCIA May 15, 2017 09:54
[2017-05-15 11:49] VITALS: BP 128/74
[2017-05-15 16:10] VITALS: BP 133/74
[2017-05-15 19:57] VITALS: BP 133/72
[2017-05-15] MEDS: Miralax 17gm pkt ORAL SCH (21:00)
--- NOTE | 2017-05-15 21:19 | Pulmonology Progress Note ---
Assessment/Plan Problems: (1) ATN (acute tubular necrosis) (2) Schizo-affective schizophrenia (3) Gastrostomy tube dysfunction (4) UTI (urinary tract infection) Assessment/Plan iv fluids GI f/u Renal consult appreciated check electrolytes picc line done yesterday Na is lower today dc back to [facility] in am if Na is lower Subjective ROS Limited/Unobtainable: Yes Constitutional: Reports: no symptoms HEENT: Repors: no symptoms Respiratory: Reports: no symptoms Allergies: Coded Allergies: No Known Allergies (Unverified , 05/09/17) Objective Last 24 Hour Vital Signs Date Time Temp Pulse Resp B/P (MAP) Pulse Ox O2 Delivery O2 Flow Rate FiO2 05/15/17 19:57 98.1 96 20 133/72 96 Room Air 05/15/17 16:10 97.8 99 19 133/74 97 Room Air 05/15/17 11:49 98.1 100 19 128/74 99 Room Air 05/15/17 07:45 98.4 102 19 119/71 96 Room Air 05/15/17 04:00 97.8 95 18 137/75 96 Room Air 05/15/17 00:00 97.9 105 20 129/69 94 Room Air Intake and Output 05/15/17 05/16/17 19:00 07:00 Intake Total 800 ml Output Total 1250 ml Balance -450 ml Free Water 200 ml Tube Feeding 600 ml Output Urine Total 1250 ml # Voids 3 # Bowel Movements 3 Objective General Appearance: WD/WN, no apparent distress Lines, tubes and drains: peripheral, HEENT: normocephalic, anicteric Neck: non-tender, normal alignment Respiratory/Chest: chest wall non-tender, lungs clear Cardiovascular/Chest: normal rate, regular rhythm Abdomen: non tender, soft Genitourinary/Rectal: normal genital exam, normal rectal exam Extremities: normal range of motion, non-pitting Laboratory Tests 05/15/17 04:40: Sodium Level 140, Potassium Level 3.4L, Chloride Level 105, Carbon Dioxide Level 32, Anion Gap 4L, Blood Urea Nitrogen 11, Creatinine 0.9, Estimat Glomerular Filtration Rate > 60, Glucose Level 451#H, Uric Acid 3.2, Calcium Level 8.7, Phosphorus Level 2.6, Magnesium Level 1.9, Total Bilirubin 0.3, Aspartate Amino Transf (AST/SGOT) 21, Alanine Aminotransferase (ALT/SGPT) 37, Alkaline Phosphatase 116, Total Protein 5.5L, Albumin 2.0L, Globulin 3.5, Albumin/Globulin Ratio 0.6L Current Medications Medications (Trade) Dose Ordered Sig/Robert Route PRN Reason Start Time Stop Time Status Last Admin Dose Admin Chlorhexidine Gluconate (Karley-Hex 2%) 1 applic DAILY@2000 TOPIC 05/13/17 20:00 06/12/17 19:59 05/14/17 21:05 Dextrose (Dextrose 50%) STAT PRN IV Hypoglycemia 05/10/17 02:30 06/09/17 02:29 Docusate Sodium (Colace) 100 mg THREE TIMES A DAY ORAL 05/10/17 13:30 06/09/17 13:29 05/15/17 08:11 Heparin Sodium (Porcine) (Heparin 5000 units/ml) 5,000 units EVERY 12 HOURS SUBQ 05/10/17 09:00 06/09/17 08:59 05/15/17 08:12 Insulin Aspart (NovoLOG) BEFORE MEALS AND HS SUBQ 05/10/17 06:30 06/09/17 06:29 05/15/17 16:26 [place] Carbonate ([place] Carbonate) 600 mg BEDTIME ORAL 05/10/17 21:00 06/09/17 08:59 05/14/17 20:59 Lorazepam (Ativan 2mg/ml 1ml) 0.5 mg Q4H PRN IV For Anxiety 05/10/17 00:00 05/17/17 00:00 Ondansetron HCl (Zofran) 4 mg Q6H PRN IVP Nausea & Vomiting 05/10/17 00:00 06/09/17 00:00 Polyethylene Glycol (Miralax) 17 gm BEDTIME ORAL 05/10/17 21:00 06/09/17 20:59 05/14/17 21:11 Promethazine HCl/ Codeine (Phenergan with Codeine) 5 ml Q4H PRN ORAL For Cough 05/15/17 09:45 06/14/17 09:44 05/15/17 10:03 Quetiapine Fumarate (SEROquel) 300 mg BEDTIME ORAL 05/14/17 21:00 06/13/17 20:59 05/14/17 21:10 ANYI ALEGRIA May 15, 2017 21:19
[2017-05-15] MEDS: Dyna-Hex 2% Top Sol 2oz TOPIC SCH (21:55)
--- NOTE | 2017-05-15 23:26 | General Progress Note ---
Assessment/Plan Status: stable, progressing Assessment/Plan encephalopathy agitated seroquel 300mg qhs lithoum 600mg Subjective Neurologic/Psychiatric: Reports: anxiety, depressed Allergies: Coded Allergies: No Known Allergies (Unverified , 05/09/17) Subjective the pt was agitated and attempting to come out of bed Objective Last 24 Hour Vital Signs Date Time Temp Pulse Resp B/P (MAP) Pulse Ox O2 Delivery O2 Flow Rate FiO2 05/15/17 19:57 98.1 96 20 133/72 96 Room Air 05/15/17 16:10 97.8 99 19 133/74 97 Room Air 05/15/17 11:49 98.1 100 19 128/74 99 Room Air 05/15/17 07:45 98.4 102 19 119/71 96 Room Air 05/15/17 04:00 97.8 95 18 137/75 96 Room Air 05/15/17 00:00 97.9 105 20 129/69 94 Room Air Intake and Output 05/15/17 05/16/17 19:00 07:00 Intake Total 800 ml Output Total 1250 ml Balance -450 ml Free Water 200 ml Tube Feeding 600 ml Output Urine Total 1250 ml # Voids 3 # Bowel Movements 3 Laboratory Tests 05/15/17 04:40: Sodium Level 140, Potassium Level 3.4L, Chloride Level 105, Carbon Dioxide Level 32, Anion Gap 4L, Blood Urea Nitrogen 11, Creatinine 0.9, Estimat Glomerular Filtration Rate > 60, Glucose Level 451#H, Uric Acid 3.2, Calcium Level 8.7, Phosphorus Level 2.6, Magnesium Level 1.9, Total Bilirubin 0.3, Aspartate Amino Transf (AST/SGOT) 21, Alanine Aminotransferase (ALT/SGPT) 37, Alkaline Phosphatase 116, Total Protein 5.5L, Albumin 2.0L, Globulin 3.5, Albumin/Globulin Ratio 0.6L Height (Feet): 5 Height (Inches): 2.00 Weight (Pounds): 170 General Appearance: WD/WN, no apparent distress, confused, overweight Neurologic: alert, responsive, disoriented, depressed affect Avery Dang M.D. May 15, 2017 23:26
[2017-05-16] VITALS: BP 130/69
[2017-05-16 04:00] VITALS: BP 122/71
[2017-05-16] MEDS: NovoLOG Insulin Flexpen SUBQ SCH ×4 (05:58→21:16)
[2017-05-16] MEDS: Docusate 100mg cap ORAL SCH ×3 (07:49→16:52)
[2017-05-16 07:53] VITALS: BP 129/75
[2017-05-16] MEDS: Heparin 5000 units/ml inj SUBQ SCH ×2 (08:10→21:12)
--- NOTE | 2017-05-16 08:22 | Diagnostic Imaging Report ---
Indications: Needs long-term IV access Technique: Procedure performed by Dr. Painter. Ultrasound confirms patent compressible right brachial vein. Total sterile technique, including sterile probe cover and sterile gel, hat, mask,, sterile gown, large sterile drape, and preparation with 2% chlorhexidine utilized. Local anesthesia with 1% lidocaine. Under real-time ultrasound guidance, puncture brachial vein using 21-gauge needle, documented and archived, passage 0.018 guidewire under direct fluoroscopy, which was used to determine appropriate catheter length, exchange for 5 Polish peel-away sheath. 5 Polish Bard dual-lumen power PICC cut to cm. It was inserted through the peel-away sheath. Peel-away sheath and guidewire removed. Catheter fixed to the skin. Both catheter ports aspirated and flushed. Patient tolerated procedure well, without immediate complication. Digital radiograph documents satisfactory catheter tip position, at the cavoatrial junction. Total fluoroscopy time 0.1 minutes. Total dose area product 2.3 dGycm2 Impression: Successful placement of right arm PICC under sonographic and fluoroscopic guidance, as described above.
--- NOTE | 2017-05-16 10:54 | Infectious Diseases Prog Note ---
Assessment/Plan Assessment/Plan ASSESSMENT: The patient is a 57-year-old female with: Pyuria/possible urinary tract infection, UCx: Kleb , Sp Rx Lethargy Hypertension Status post trach that was removed on 05/07/2017. GERD. Diabetes. Schizophrenia/bipolar disorder PLAN: monitor Pt off of AB Rx 05/12SP Levaquin x 1 05/12 IV Zosyn d# 3 / 3 Monitor CBC Monitor BMP Subjective Constitutional: Denies: no symptoms, fever, chills, fatigue, anorexia, drenching sweats, other Allergies: Coded Allergies: No Known Allergies (Unverified , 05/09/17) Objective Vital Signs Last 24 Hour Vital Signs Date Time Temp Pulse Resp B/P (MAP) Pulse Ox O2 Delivery O2 Flow Rate FiO2 05/16/17 07:53 97.5 105 18 129/75 97 Room Air 05/16/17 04:00 98.2 100 20 122/71 100 Room Air 05/16/17 00:00 98.4 72 18 130/69 92 Room Air 05/15/17 19:57 98.1 96 20 133/72 96 Room Air 05/15/17 16:10 97.8 99 19 133/74 97 Room Air 05/15/17 11:49 98.1 100 19 128/74 99 Room Air Height (Feet): 5 Height (Inches): 2.00 Weight (Pounds): 170 HEENT: atraumatic Respiratory/Chest: respiratory distress Cardiovascular: no gallop/murmur Abdomen: non distended Current Medications Medications (Trade) Dose Ordered Sig/Robert Route PRN Reason Start Time Stop Time Status Last Admin Dose Admin Chlorhexidine Gluconate (Karley-Hex 2%) 1 applic DAILY@1999 TOPIC 05/13/17 20:00 06/12/17 19:59 05/15/17 21:55 Dextrose (Dextrose 50%) STAT PRN IV Hypoglycemia 05/10/17 02:30 06/09/17 02:29 Docusate Sodium (Colace) 100 mg THREE TIMES A DAY ORAL 05/10/17 13:30 06/09/17 13:29 05/15/17 08:11 Heparin Sodium (Porcine) (Heparin 5000 units/ml) 5,000 units EVERY 12 HOURS SUBQ 05/10/17 09:00 06/09/17 08:59 05/16/17 08:10 Insulin Aspart (NovoLOG) BEFORE MEALS AND HS SUBQ 05/10/17 06:30 06/09/17 06:29 05/16/17 05:58 [place] Carbonate ([place] Carbonate) 600 mg BEDTIME ORAL 05/10/17 21:00 06/09/17 08:59 05/15/17 21:56 Lorazepam (Ativan 2mg/ml 1ml) 0.5 mg Q4H PRN IV For Anxiety 05/10/17 00:00 05/17/17 00:00 Ondansetron HCl (Zofran) 4 mg Q6H PRN IVP Nausea & Vomiting 05/10/17 00:00 06/09/17 00:00 Polyethylene Glycol (Miralax) 17 gm BEDTIME ORAL 05/10/17 21:00 06/09/17 20:59 05/14/17 21:11 Promethazine HCl/ Codeine (Phenergan with Codeine) 5 ml Q4H PRN ORAL For Cough 05/15/17 09:45 06/14/17 09:44 05/15/17 10:03 Quetiapine Fumarate (SEROquel) 300 mg BEDTIME ORAL 05/14/17 21:00 06/13/17 20:59 05/15/17 21:56 CHIQUI ROONEY M.D. May 16, 2017 10:54
[2017-05-16] MEDS ORDERED: DiphenhydrAMINE 50mg/ml Inj IVP PRN (11:00)
--- NOTE | 2017-05-16 11:45 | Nephrology Progress Note ---
Assessment/Plan Problem List: (1) ATN (acute tubular necrosis) (2) Dehydration (3) UTI (urinary tract infection) (4) Anemia Assessment status: (1) Acte renal failure- dehydration- not been receiving enough free water due to poor iv line, now has PICC (2) Schizo-affective schizophrenia (3) Gastrostomy tube dysfunction (4) UTI (urinary tract infection) (5) Failure to Thrive (6) Anemia Plan Plan: PICC line Stop D5 todays labs reviewed, Na lower K Phos IV as needed hydrate- Monitor lytes- Urine studies- per Psych Subjective ROS Limited/Unobtainable: No Constitutional: Reports: malaise Objective Objective Last 24 Hour Vital Signs Date Time Temp Pulse Resp B/P (MAP) Pulse Ox O2 Delivery O2 Flow Rate FiO2 05/16/17 07:53 97.5 105 18 129/75 97 Room Air 05/16/17 04:00 98.2 100 20 122/71 100 Room Air 05/16/17 00:00 98.4 72 18 130/69 92 Room Air 05/15/17 19:57 98.1 96 20 133/72 96 Room Air 05/15/17 16:10 97.8 99 19 133/74 97 Room Air 05/15/17 11:49 98.1 100 19 128/74 99 Room Air Intake and Output 05/16/17 05/17/17 19:00 07:00 Intake Total 60 ml Balance 60 ml Tube Feeding 60 ml Height (Feet): 5 Height (Inches): 2.00 Weight (Pounds): 170 General Appearance: no apparent distress Objective no other changes ATILIO GARCIA May 16, 2017 11:45
[2017-05-16 12:04] VITALS: BP 112/67
--- NOTE | 2017-05-16 12:10 | GI Progress Note ---
Assessment/Plan Problems: (1) Dehydration ICD Codes: E86.0 - Dehydration SNOMED: 58880329 (2) Gastrostomy tube dysfunction ICD Codes: K94.23 - Gastrostomy malfunction SNOMED: 492683448 (3) Failure to thrive in adult ICD Codes: R62.7 - Adult failure to thrive SNOMED: 589755776 (4) Anemia ICD Codes: D64.9 - Anemia, unspecified SNOMED: 507174881 Qualifiers: Qualified Codes: D64.9 - Anemia, unspecified (5) Proteinuria ICD Codes: R80.9 - Proteinuria, unspecified SNOMED: 92340631 Qualifiers: Qualified Codes: R80.9 - Proteinuria, unspecified Status: stable Status Narrative Discussed with Dr. Elizabeth. Assessment/Plan ST evaluation for PO grat GT changed 2nd time, patient pulled. >> apply abdominal binder GTFs per dietary, tolerating frequent turn q2-4 hours OB stool r/o GI bleed monitor H&H, prn transfusions bowel regime electrolyte correction ppi fu labs dc planning Subjective Subjective limited Objective Last 24 Hour Vital Signs Date Time Temp Pulse Resp B/P (MAP) Pulse Ox O2 Delivery O2 Flow Rate FiO2 05/16/17 12:04 97.2 104 18 112/67 95 Room Air 05/16/17 07:53 97.5 105 18 129/75 97 Room Air 05/16/17 04:00 98.2 100 20 122/71 100 Room Air 05/16/17 00:00 98.4 72 18 130/69 92 Room Air 05/15/17 19:57 98.1 96 20 133/72 96 Room Air 05/15/17 16:10 97.8 99 19 133/74 97 Room Air Intake and Output 05/16/17 05/17/17 19:00 07:00 Intake Total 60 ml Balance 60 ml Tube Feeding 60 ml Height (Feet): 5 Height (Inches): 2.00 Weight (Pounds): 170 General Appearance: no apparent distress, alert Cardiovascular: normal rate Respiratory/Chest: normal breath sounds, no respiratory distress Abdominal Exam: normal bowel sounds, non tender, soft, GT site - c/d/i Extremities: non-tender Eva Alcocer N.P. May 16, 2017 12:10
--- NOTE | 2017-05-16 14:51 | Pulmonology Progress Note ---
Assessment/Plan Problems: (1) ATN (acute tubular necrosis) (2) Schizo-affective schizophrenia (3) Gastrostomy tube dysfunction (4) UTI (urinary tract infection) Assessment/Plan GI f/u Renal consult appreciated check electrolytes picc line done yesterday Subjective ROS Limited/Unobtainable: No Constitutional: Reports: no symptoms HEENT: Repors: no symptoms Respiratory: Reports: no symptoms Allergies: Coded Allergies: No Known Allergies (Unverified , 05/09/17) Objective Last 24 Hour Vital Signs Date Time Temp Pulse Resp B/P (MAP) Pulse Ox O2 Delivery O2 Flow Rate FiO2 05/16/17 12:04 97.2 104 18 112/67 95 Room Air 05/16/17 07:53 97.5 105 18 129/75 97 Room Air 05/16/17 04:00 98.2 100 20 122/71 100 Room Air 05/16/17 00:00 98.4 72 18 130/69 92 Room Air 05/15/17 19:57 98.1 96 20 133/72 96 Room Air 05/15/17 16:10 97.8 99 19 133/74 97 Room Air Intake and Output 05/16/17 05/17/17 19:00 07:00 Intake Total 60 ml Balance 60 ml Tube Feeding 60 ml Objective General Appearance: WD/WN, no apparent distress Lines, tubes and drains: peripheral, HEENT: normocephalic, anicteric Neck: non-tender, normal alignment Respiratory/Chest: chest wall non-tender, lungs clear Cardiovascular/Chest: normal rate, regular rhythm Abdomen: non tender, soft Genitourinary/Rectal: normal genital exam, normal rectal exam Extremities: normal range of motion, non-pitting Current Medications Medications (Trade) Dose Ordered Sig/Robert Route PRN Reason Start Time Stop Time Status Last Admin Dose Admin Chlorhexidine Gluconate (Karley-Hex 2%) 1 applic DAILY@1999 TOPIC 05/13/17 20:00 06/12/17 19:59 05/15/17 21:55 Dextrose (Dextrose 50%) STAT PRN IV Hypoglycemia 05/10/17 02:30 06/09/17 02:29 Diphenhydramine HCl (Benadryl) 25 mg Q6H PRN IVP Itching 05/16/17 11:00 06/15/17 10:59 05/16/17 11:03 Docusate Sodium (Colace) 100 mg THREE TIMES A DAY ORAL 05/10/17 13:30 06/09/17 13:29 05/15/17 08:11 Heparin Sodium (Porcine) (Heparin 5000 units/ml) 5,000 units EVERY 12 HOURS SUBQ 05/10/17 09:00 06/09/17 08:59 05/16/17 08:10 Insulin Aspart (NovoLOG) BEFORE MEALS AND HS SUBQ 05/10/17 06:30 06/09/17 06:29 05/16/17 11:38 [place] Carbonate ([place] Carbonate) 600 mg BEDTIME ORAL 05/10/17 21:00 06/09/17 08:59 05/15/17 21:56 Lorazepam (Ativan 2mg/ml 1ml) 0.5 mg Q4H PRN IV For Anxiety 05/10/17 00:00 05/17/17 00:00 Ondansetron HCl (Zofran) 4 mg Q6H PRN IVP Nausea & Vomiting 05/10/17 00:00 06/09/17 00:00 Polyethylene Glycol (Miralax) 17 gm BEDTIME ORAL 05/10/17 21:00 06/09/17 20:59 05/14/17 21:11 Promethazine HCl/ Codeine (Phenergan with Codeine) 5 ml Q4H PRN ORAL For Cough 05/15/17 09:45 06/14/17 09:44 05/15/17 10:03 Quetiapine Fumarate (SEROquel) 300 mg BEDTIME ORAL 05/14/17 21:00 06/13/17 20:59 05/15/17 21:56 ANYI ALEGRIA May 16, 2017 14:51
[2017-05-16 16:01] VITALS: BP 120/75
[2017-05-16] MEDS: Docusate 100mg/10ml Liq GT SCH (17:15)
[2017-05-16 20:00] VITALS: BP 139/74
--- NOTE | 2017-05-16 20:42 | Diagnostic Imaging Report ---
APPROVED REPORT CPT Code: 94489 Present Symptoms Upper Extremity Edema: Left LEFT UPPER EXTREMITY: Venous imaging reveals patency of the internal jugular, subclavian, axillary and brachial veins. The cephalic and basilic veins are also patent. Doppler indicates normal spontaneous flow within these venous segments. Incidental finding: Numerous round and elliptical cystic structures, non-tubular, non-compressible, avascular, in the lateral aspect of the left upper arm. Largest measures 2.98 cm x 0.85 cm.
[2017-05-16] MEDS: Miralax 17gm pkt ORAL SCH (21:00)
[2017-05-16] MEDS: Dyna-Hex 2% Top Sol 2oz TOPIC SCH (21:09)
--- NOTE | 2017-05-16 21:21 | General Progress Note ---
Assessment/Plan Status: stable Assessment/Plan encephalopathy agitated seroquel 300mg qhs lithoum 600mg Subjective Date patient seen: May 15, 2017 Neurologic/Psychiatric: Reports: anxiety, depressed, emotional problems Allergies: Coded Allergies: No Known Allergies (Unverified , 05/09/17) Subjective the pt was calm confused Objective Last 24 Hour Vital Signs Date Time Temp Pulse Resp B/P (MAP) Pulse Ox O2 Delivery O2 Flow Rate FiO2 05/16/17 20:00 98.1 115 20 139/74 95 Room Air 05/16/17 16:01 97.0 106 20 120/75 95 Room Air 05/16/17 12:04 97.2 104 18 112/67 95 Room Air 05/16/17 07:53 97.5 105 18 129/75 97 Room Air 05/16/17 04:00 98.2 100 20 122/71 100 Room Air 05/16/17 00:00 98.4 72 18 130/69 92 Room Air Intake and Output 05/16/17 05/17/17 19:00 07:00 Intake Total 920 ml Output Total 700 ml Balance 220 ml Free Water 200 ml Tube Feeding 720 ml Output Urine Total 700 ml # Bowel Movements 1 Height (Feet): 5 Height (Inches): 2.00 Weight (Pounds): 170 General Appearance: no apparent distress, alert, confused Neurologic: alert, disoriented, unresponsive, depressed affect Avery Dang M.D. May 16, 2017 21:21
--- NOTE | 2017-05-16 21:22 | Geriatric Progress Note ---
Assessment/Plan Assessment/Plan less agitated calmer cont lithium and seroquel Subjective Interval Events 05/14/17 Geriatric Geriatric Last 24 Hour Vital Signs Date Time Temp Pulse Resp B/P (MAP) Pulse Ox O2 Delivery O2 Flow Rate FiO2 05/16/17 20:00 98.1 115 20 139/74 95 Room Air 05/16/17 16:01 97.0 106 20 120/75 95 Room Air 05/16/17 12:04 97.2 104 18 112/67 95 Room Air 05/16/17 07:53 97.5 105 18 129/75 97 Room Air 05/16/17 04:00 98.2 100 20 122/71 100 Room Air 05/16/17 00:00 98.4 72 18 130/69 92 Room Air Intake and Output 05/16/17 05/17/17 19:00 07:00 Intake Total 920 ml Output Total 700 ml Balance 220 ml Free Water 200 ml Tube Feeding 720 ml Output Urine Total 700 ml # Bowel Movements 1 Current Medications Medications (Trade) Dose Ordered Sig/Robert Route PRN Reason Start Time Stop Time Status Last Admin Dose Admin Chlorhexidine Gluconate (Karley-Hex 2%) 1 applic DAILY@2000 TOPIC 05/13/17 20:00 06/12/17 19:59 05/16/17 21:09 Dextrose (Dextrose 50%) STAT PRN IV Hypoglycemia 05/10/17 02:30 06/09/17 02:29 Diphenhydramine HCl (Benadryl) 25 mg Q6H PRN IVP Itching 05/16/17 11:00 06/15/17 10:59 05/16/17 11:03 Docusate Sodium (Colace) 100 mg THREE TIMES A DAY GT 05/16/17 18:00 06/15/17 17:59 Heparin Sodium (Porcine) (Heparin 5000 units/ml) 5,000 units EVERY 12 HOURS SUBQ 05/10/17 09:00 06/09/17 08:59 05/16/17 21:12 Insulin Aspart (NovoLOG) BEFORE MEALS AND HS SUBQ 05/10/17 06:30 06/09/17 06:29 05/16/17 21:16 [place] Carbonate ([place] Carbonate) 600 mg BEDTIME ORAL 05/10/17 21:00 06/09/17 08:59 05/16/17 21:09 Lorazepam (Ativan 2mg/ml 1ml) 0.5 mg Q4H PRN IV For Anxiety 05/10/17 00:00 05/17/17 00:00 05/16/17 15:52 Ondansetron HCl (Zofran) 4 mg Q6H PRN IVP Nausea & Vomiting 05/10/17 00:00 06/09/17 00:00 Polyethylene Glycol (Miralax) 17 gm BEDTIME ORAL 05/10/17 21:00 06/09/17 20:59 05/14/17 21:11 Promethazine HCl/ Codeine (Phenergan with Codeine) 5 ml Q4H PRN ORAL For Cough 05/15/17 09:45 06/14/17 09:44 05/15/17 10:03 Quetiapine Fumarate (SEROquel) 300 mg BEDTIME ORAL 05/14/17 21:00 06/13/17 20:59 05/16/17 21:08 Height (Feet): 5 Height (Inches): 2.00 Weight (Pounds): 170 Avery Dang M.D. May 16, 2017 21:22
[2017-05-17] VITALS: BP 128/69
[2017-05-17 03:54] VITALS: BP 138/75
[2017-05-17] MEDS: NovoLOG Insulin Flexpen SUBQ SCH ×4 (06:11→20:20)
[2017-05-17 06:41] LABS: BASOPHILS % (AUTO) 0.9 % (0.0-2.0); LYMPHOCYTES % (AUTO) 16.7 % (20.0-45.0); MEAN CORPUSCULAR HEMOGLOBIN 32.2 PG (27.0-31.0); MEAN CORPUSCULAR HGB CONC 31.8 G/DL (32.0-36.0); MEAN CORPUSCULAR VOLUME 101 FL (80-99); MEAN PLATELET VOLUME 10.6 FL (6.5-10.1); MONOCYTES % (AUTO) 5.9 % (1.0-10.0); NEUTROPHILS % (AUTO) 76.5 % (45.0-75.0); PLATELET COUNT 210 K/UL (150-450); RED BLOOD COUNT 3.52 M/UL (4.20-5.40); RED CELL DISTRIBUTION WIDTH 18.3 % (11.6-14.8); WHITE BLOOD COUNT 7.3 K/UL (4.8-10.8)
[2017-05-17 06:56] LABS: ANION GAP 4 mmol/L (5-15); CARBON DIOXIDE 32 MMOL/L (21-32); CHLORIDE 114 MMOL/L (98-107); CREATININE 0.9 MG/DL (0.55-1.30); GLOMERULAR FILTRATION RATE > 60 mL/min (>60); POTASSIUM 3.7 MMOL/L (3.5-5.1); SODIUM 150 MMOL/L (136-145)
[2017-05-17 08:00] VITALS: BP 139/76
[2017-05-17] MEDS: Docusate 100mg/10ml Liq GT SCH ×3 (08:42→17:02)
[2017-05-17] MEDS: Heparin 5000 units/ml inj SUBQ SCH ×2 (09:00→20:18)
--- NOTE | 2017-05-17 09:02 | Infectious Diseases Prog Note ---
Assessment/Plan Assessment/Plan ASSESSMENT: The patient is a 57-year-old female with: Pyuria/possible urinary tract infection, UCx: Kleb , Sp Rx Lethargy Hypertension Status post trach that was removed on 05/07/2017. GERD. Diabetes. Schizophrenia/bipolar disorder PLAN: monitor Pt off of AB Rx 05/12SP Levaquin x 1 05/12 IV Zosyn d# 3 / 3 Monitor CBC Monitor BMP Subjective Constitutional: Denies: no symptoms, fever, chills, fatigue, anorexia, drenching sweats, other Allergies: Coded Allergies: No Known Allergies (Unverified , 05/09/17) Objective Vital Signs Last 24 Hour Vital Signs Date Time Temp Pulse Resp B/P (MAP) Pulse Ox O2 Delivery O2 Flow Rate FiO2 05/17/17 08:00 97.8 106 20 139/76 98 Room Air 05/17/17 03:54 97.5 107 20 138/75 98 Room Air 05/17/17 00:00 97.9 109 20 128/69 96 Room Air 05/16/17 20:00 98.1 115 20 139/74 95 Room Air 05/16/17 16:01 97.0 106 20 120/75 95 Room Air 05/16/17 12:04 97.2 104 18 112/67 95 Room Air Height (Feet): 5 Height (Inches): 2.00 Weight (Pounds): 170 HEENT: anicteric Respiratory/Chest: no respiratory distress Cardiovascular: no JVD Abdomen: no organomegaly Laboratory Tests Test 05/17/17 05:00 White Blood Count 7.3 K/UL (4.8-10.8) Red Blood Count 3.52 M/UL (4.20-5.40) L Hemoglobin 11.3 G/DL (12.0-16.0) L Hematocrit 35.6 % (37.0-47.0) L Mean Corpuscular Volume 101 FL (80-99) H Mean Corpuscular Hemoglobin 32.2 PG (27.0-31.0) H Mean Corpuscular Hemoglobin Concent 31.8 G/DL (32.0-36.0) L Red Cell Distribution Width 18.3 % (11.6-14.8) H Platelet Count 210 K/UL (150-450) Mean Platelet Volume 10.6 FL (6.5-10.1) H Neutrophils (%) (Auto) 76.5 % (45.0-75.0) H Lymphocytes (%) (Auto) 16.7 % (20.0-45.0) L Monocytes (%) (Auto) 5.9 % (1.0-10.0) Eosinophils (%) (Auto) 0.0 % (0.0-3.0) Basophils (%) (Auto) 0.9 % (0.0-2.0) Sodium Level 150 MMOL/L (136-145) H Potassium Level 3.7 MMOL/L (3.5-5.1) Chloride Level 114 MMOL/L (98-107) H Carbon Dioxide Level 32 MMOL/L (21-32) Anion Gap 4 mmol/L (5-15) L Blood Urea Nitrogen 17 mg/dL (7-18) Creatinine 0.9 MG/DL (0.55-1.30) Estimat Glomerular Filtration Rate > 60 mL/min (>60) Glucose Level 106 MG/DL (74-106) Calcium Level 10.0 MG/DL (8.5-10.1) Current Medications Medications (Trade) Dose Ordered Sig/Robert Route PRN Reason Start Time Stop Time Status Last Admin Dose Admin Chlorhexidine Gluconate (Karley-Hex 2%) 1 applic DAILY@1999 TOPIC 05/13/17 20:00 06/12/17 19:59 05/16/17 21:09 Dextrose (Dextrose 50%) STAT PRN IV Hypoglycemia 05/10/17 02:30 06/09/17 02:29 Diphenhydramine HCl (Benadryl) 25 mg Q6H PRN IVP Itching 05/16/17 11:00 06/15/17 10:59 05/16/17 11:03 Docusate Sodium (Colace) 100 mg THREE TIMES A DAY GT 05/16/17 18:00 06/15/17 17:59 Heparin Sodium (Porcine) (Heparin 5000 units/ml) 5,000 units EVERY 12 HOURS SUBQ 05/10/17 09:00 06/09/17 08:59 05/16/17 21:12 Insulin Aspart (NovoLOG) BEFORE MEALS AND HS SUBQ 05/10/17 06:30 06/09/17 06:29 05/16/17 21:16 [place] Carbonate ([place] Carbonate) 600 mg BEDTIME ORAL 05/10/17 21:00 06/09/17 08:59 05/16/17 21:09 Ondansetron HCl (Zofran) 4 mg Q6H PRN IVP Nausea & Vomiting 05/10/17 00:00 06/09/17 00:00 Polyethylene Glycol (Miralax) 17 gm BEDTIME ORAL 05/10/17 21:00 06/09/17 20:59 05/14/17 21:11 Promethazine HCl/ Codeine (Phenergan with Codeine) 5 ml Q4H PRN ORAL For Cough 05/15/17 09:45 06/14/17 09:44 05/15/17 10:03 Quetiapine Fumarate (SEROquel) 300 mg BEDTIME ORAL 05/14/17 21:00 06/13/17 20:59 05/16/17 21:08 CHIQUI ROONEY M.D. May 17, 2017 09:02
[2017-05-17 12:00] VITALS: BP 139/75
--- NOTE | 2017-05-17 13:23 | Nephrology Progress Note ---
Assessment/Plan Problem List: (1) ATN (acute tubular necrosis) (2) Dehydration (3) UTI (urinary tract infection) (4) Anemia Assessment status: (1) Acte renal failure- dehydration- not been receiving enough free water due to poor iv line, now has PICC (2) Schizo-affective schizophrenia (3) Gastrostomy tube dysfunction (4) UTI (urinary tract infection) (5) Failure to Thrive (6) Anemia Plan Plan: PICC line Stop D5 todays labs reviewed, Na lower K Phos IV as needed hydrate- Monitor lytes- Urine studies- per Psych Subjective ROS Limited/Unobtainable: No Constitutional: Reports: malaise, weakness Objective Objective Last 24 Hour Vital Signs Date Time Temp Pulse Resp B/P (MAP) Pulse Ox O2 Delivery O2 Flow Rate FiO2 05/17/17 12:00 97.7 107 20 139/75 98 Room Air 05/17/17 08:00 97.8 106 20 139/76 98 Room Air 05/17/17 03:54 97.5 107 20 138/75 98 Room Air 05/17/17 00:00 97.9 109 20 128/69 96 Room Air 05/16/17 20:00 98.1 115 20 139/74 95 Room Air 05/16/17 16:01 97.0 106 20 120/75 95 Room Air Intake and Output 05/17/17 05/18/17 19:00 07:00 Output Total 200 ml Balance -200 ml Output Urine Total 200 ml # Voids 1 Laboratory Tests 05/17/17 05:00: White Blood Count 7.3, Red Blood Count 3.52L, Hemoglobin 11.3L, Hematocrit 35.6L , Mean Corpuscular Volume 101H, Mean Corpuscular Hemoglobin 32.2H, Mean Corpuscular Hemoglobin Concent 31.8L, Red Cell Distribution Width 18.3H, Platelet Count 210, Mean Platelet Volume 10.6H, Neutrophils (%) (Auto) 76.5H, Lymphocytes (%) (Auto) 16.7L, Monocytes (%) (Auto) 5.9, Eosinophils (%) (Auto) 0.0, Basophils (%) (Auto) 0.9, Sodium Level 150H, Potassium Level 3.7, Chloride Level 114H, Carbon Dioxide Level 32, Anion Gap 4L, Blood Urea Nitrogen 17, Creatinine 0.9, Estimat Glomerular Filtration Rate > 60, Glucose Level 106, Calcium Level 10.0 Height (Feet): 5 Height (Inches): 2.00 Weight (Pounds): 170 General Appearance: no apparent distress Objective no other changes ATILIO GARCIA May 17, 2017 13:23
--- NOTE | 2017-05-17 15:03 | Pulmonology Progress Note ---
Assessment/Plan Problems: (1) ATN (acute tubular necrosis) (2) Schizo-affective schizophrenia (3) Gastrostomy tube dysfunction (4) UTI (urinary tract infection) Assessment/Plan GI f/u Renal consult appreciated check electrolytes dc planning in progress Subjective ROS Limited/Unobtainable: No Constitutional: Reports: no symptoms HEENT: Repors: no symptoms Allergies: Coded Allergies: No Known Allergies (Unverified , 05/09/17) Objective Last 24 Hour Vital Signs Date Time Temp Pulse Resp B/P (MAP) Pulse Ox O2 Delivery O2 Flow Rate FiO2 05/17/17 12:00 97.7 107 20 139/75 98 Room Air 05/17/17 08:00 97.8 106 20 139/76 98 Room Air 05/17/17 03:54 97.5 107 20 138/75 98 Room Air 05/17/17 00:00 97.9 109 20 128/69 96 Room Air 05/16/17 20:00 98.1 115 20 139/74 95 Room Air 05/16/17 16:01 97.0 106 20 120/75 95 Room Air Intake and Output 05/17/17 05/18/17 19:00 07:00 Output Total 200 ml Balance -200 ml Output Urine Total 200 ml # Voids 1 Objective General Appearance: WD/WN, no apparent distress Lines, tubes and drains: peripheral, HEENT: normocephalic, anicteric Neck: non-tender, normal alignment Respiratory/Chest: chest wall non-tender, lungs clear Cardiovascular/Chest: normal rate, regular rhythm Abdomen: non tender, soft Genitourinary/Rectal: normal genital exam, normal rectal exam Extremities: normal range of motion, non-pitting Laboratory Tests 05/17/17 05:00: White Blood Count 7.3, Red Blood Count 3.52L, Hemoglobin 11.3L, Hematocrit 35.6L , Mean Corpuscular Volume 101H, Mean Corpuscular Hemoglobin 32.2H, Mean Corpuscular Hemoglobin Concent 31.8L, Red Cell Distribution Width 18.3H, Platelet Count 210, Mean Platelet Volume 10.6H, Neutrophils (%) (Auto) 76.5H, Lymphocytes (%) (Auto) 16.7L, Monocytes (%) (Auto) 5.9, Eosinophils (%) (Auto) 0.0, Basophils (%) (Auto) 0.9, Sodium Level 150H, Potassium Level 3.7, Chloride Level 114H, Carbon Dioxide Level 32, Anion Gap 4L, Blood Urea Nitrogen 17, Creatinine 0.9, Estimat Glomerular Filtration Rate > 60, Glucose Level 106, Calcium Level 10.0 Current Medications Medications (Trade) Dose Ordered Sig/Robert Route PRN Reason Start Time Stop Time Status Last Admin Dose Admin Chlorhexidine Gluconate (Karley-Hex 2%) 1 applic DAILY@2000 TOPIC 05/13/17 20:00 06/12/17 19:59 05/16/17 21:09 Dextrose (Dextrose 50%) STAT PRN IV Hypoglycemia 05/10/17 02:30 06/09/17 02:29 Diphenhydramine HCl (Benadryl) 25 mg Q6H PRN IVP Itching 05/16/17 11:00 06/15/17 10:59 05/16/17 11:03 Docusate Sodium (Colace) 100 mg THREE TIMES A DAY GT 05/16/17 18:00 06/15/17 17:59 Heparin Sodium (Porcine) (Heparin 5000 units/ml) 5,000 units EVERY 12 HOURS SUBQ 05/10/17 09:00 06/09/17 08:59 05/16/17 21:12 Insulin Aspart (NovoLOG) BEFORE MEALS AND HS SUBQ 05/10/17 06:30 06/09/17 06:29 05/17/17 12:24 [place] Carbonate ([place] Carbonate) 600 mg BEDTIME ORAL 05/10/17 21:00 06/09/17 08:59 05/16/17 21:09 Ondansetron HCl (Zofran) 4 mg Q6H PRN IVP Nausea & Vomiting 05/10/17 00:00 06/09/17 00:00 Polyethylene Glycol (Miralax) 17 gm BEDTIME ORAL 05/10/17 21:00 06/09/17 20:59 05/14/17 21:11 Promethazine HCl/ Codeine (Phenergan with Codeine) 5 ml Q4H PRN ORAL For Cough 05/15/17 09:45 06/14/17 09:44 05/15/17 10:03 Quetiapine Fumarate (SEROquel) 300 mg BEDTIME ORAL 05/14/17 21:00 06/13/17 20:59 05/16/17 21:08 ANYI ALEGRIA May 17, 2017 15:03
[2017-05-17 16:00] VITALS: BP 127/74
--- NOTE | 2017-05-17 16:58 | GI Progress Note ---
Assessment/Plan Problems: (1) Dehydration ICD Codes: E86.0 - Dehydration SNOMED: 96275678 (2) Gastrostomy tube dysfunction ICD Codes: K94.23 - Gastrostomy malfunction SNOMED: 084121364 (3) Failure to thrive in adult ICD Codes: R62.7 - Adult failure to thrive SNOMED: 908203748 (4) Anemia ICD Codes: D64.9 - Anemia, unspecified SNOMED: 972148566 Qualifiers: Qualified Codes: D64.9 - Anemia, unspecified (5) Proteinuria ICD Codes: R80.9 - Proteinuria, unspecified SNOMED: 83660868 Qualifiers: Qualified Codes: R80.9 - Proteinuria, unspecified Status: stable Status Narrative Discussed with Dr. Elizabeth. Assessment/Plan ST evaluation for PO grat GT changed 2nd time, patient pulled. >> apply abdominal binder GTFs per dietary, tolerating frequent turn q2-4 hours OB stool r/o GI bleed monitor H&H, prn transfusions bowel regime electrolyte correction ppi fu labs dc planning Subjective Subjective limited Objective Last 24 Hour Vital Signs Date Time Temp Pulse Resp B/P (MAP) Pulse Ox O2 Delivery O2 Flow Rate FiO2 05/17/17 16:00 98.2 100 20 127/74 97 Room Air 05/17/17 12:00 97.7 107 20 139/75 98 Room Air 05/17/17 08:00 97.8 106 20 139/76 98 Room Air 05/17/17 03:54 97.5 107 20 138/75 98 Room Air 05/17/17 00:00 97.9 109 20 128/69 96 Room Air 05/16/17 20:00 98.1 115 20 139/74 95 Room Air Intake and Output 05/17/17 05/18/17 19:00 07:00 Output Total 200 ml Balance -200 ml Output Urine Total 200 ml # Voids 1 Laboratory Tests Test 05/17/17 05:00 White Blood Count 7.3 K/UL (4.8-10.8) Red Blood Count 3.52 M/UL (4.20-5.40) L Hemoglobin 11.3 G/DL (12.0-16.0) L Hematocrit 35.6 % (37.0-47.0) L Mean Corpuscular Volume 101 FL (80-99) H Mean Corpuscular Hemoglobin 32.2 PG (27.0-31.0) H Mean Corpuscular Hemoglobin Concent 31.8 G/DL (32.0-36.0) L Red Cell Distribution Width 18.3 % (11.6-14.8) H Platelet Count 210 K/UL (150-450) Mean Platelet Volume 10.6 FL (6.5-10.1) H Neutrophils (%) (Auto) 76.5 % (45.0-75.0) H Lymphocytes (%) (Auto) 16.7 % (20.0-45.0) L Monocytes (%) (Auto) 5.9 % (1.0-10.0) Eosinophils (%) (Auto) 0.0 % (0.0-3.0) Basophils (%) (Auto) 0.9 % (0.0-2.0) Sodium Level 150 MMOL/L (136-145) H Potassium Level 3.7 MMOL/L (3.5-5.1) Chloride Level 114 MMOL/L (98-107) H Carbon Dioxide Level 32 MMOL/L (21-32) Anion Gap 4 mmol/L (5-15) L Blood Urea Nitrogen 17 mg/dL (7-18) Creatinine 0.9 MG/DL (0.55-1.30) Estimat Glomerular Filtration Rate > 60 mL/min (>60) Glucose Level 106 MG/DL (74-106) Calcium Level 10.0 MG/DL (8.5-10.1) Height (Feet): 5 Height (Inches): 2.00 Weight (Pounds): 170 General Appearance: WD/WN, no apparent distress, alert, obese Cardiovascular: normal rate Respiratory/Chest: normal breath sounds, no respiratory distress Abdominal Exam: normal bowel sounds, non tender, soft, GT site - c/d/i Extremities: non-tender Eva Alcocer N.P. May 17, 2017 16:58
[2017-05-17 20:00] VITALS: BP 131/81
[2017-05-17] MEDS: Dyna-Hex 2% Top Sol 2oz TOPIC SCH (20:16)
[2017-05-17] MEDS: Miralax 17gm pkt ORAL SCH (20:16)
--- NOTE | 2017-05-17 21:34 | General Progress Note ---
Assessment/Plan Status: stable, progressing Assessment/Plan encephalopathy agitated seroquel 300mg qhs lithoum 600mg Subjective Neurologic/Psychiatric: Reports: anxiety, depressed, emotional problems Allergies: Coded Allergies: No Known Allergies (Unverified , 05/09/17) Subjective the pt was calm confused attempted to pull on Simmons Objective Last 24 Hour Vital Signs Date Time Temp Pulse Resp B/P (MAP) Pulse Ox O2 Delivery O2 Flow Rate FiO2 05/17/17 20:00 98.1 104 20 131/81 95 Room Air 05/17/17 16:00 98.2 100 20 127/74 97 Room Air 05/17/17 12:00 97.7 107 20 139/75 98 Room Air 05/17/17 08:00 97.8 106 20 139/76 98 Room Air 05/17/17 03:54 97.5 107 20 138/75 98 Room Air 05/17/17 00:00 97.9 109 20 128/69 96 Room Air Intake and Output 05/17/17 05/18/17 19:00 07:00 Intake Total 990 ml Output Total 800 ml Balance 190 ml Free Water 270 ml Tube Feeding 720 ml Output Urine Total 800 ml # Voids 1 Laboratory Tests 05/17/17 05:00: White Blood Count 7.3, Red Blood Count 3.52L, Hemoglobin 11.3L, Hematocrit 35.6L , Mean Corpuscular Volume 101H, Mean Corpuscular Hemoglobin 32.2H, Mean Corpuscular Hemoglobin Concent 31.8L, Red Cell Distribution Width 18.3H, Platelet Count 210, Mean Platelet Volume 10.6H, Neutrophils (%) (Auto) 76.5H, Lymphocytes (%) (Auto) 16.7L, Monocytes (%) (Auto) 5.9, Eosinophils (%) (Auto) 0.0, Basophils (%) (Auto) 0.9, Sodium Level 150H, Potassium Level 3.7, Chloride Level 114H, Carbon Dioxide Level 32, Anion Gap 4L, Blood Urea Nitrogen 17, Creatinine 0.9, Estimat Glomerular Filtration Rate > 60, Glucose Level 106, Calcium Level 10.0 Height (Feet): 5 Height (Inches): 2.00 Weight (Pounds): 170 General Appearance: no apparent distress, alert, confused, agitated Neurologic: alert, disoriented, unresponsive, depressed affect Farhadi,Pantea M.D. May 17, 2017 21:34
[2017-05-18] VITALS: BP 127/87
[2017-05-18 04:00] VITALS: BP 121/84
[2017-05-18] MEDS: NovoLOG Insulin Flexpen SUBQ SCH ×3 (06:14→16:23)
[2017-05-18 07:05] LABS: ANION GAP 4 mmol/L (5-15); CALCIUM 10.3 MG/DL (8.5-10.1); CARBON DIOXIDE 32 MMOL/L (21-32); CHLORIDE 114 MMOL/L (98-107); GLOMERULAR FILTRATION RATE 56.8 mL/min (>60); POTASSIUM 3.5 MMOL/L (3.5-5.1); SODIUM 150 MMOL/L (136-145)
[2017-05-18 07:09] LABS: BASOPHILS % (AUTO) 1.1 % (0.0-2.0); EOSINOPHILS % (AUTO) 0.1 % (0.0-3.0); LYMPHOCYTES % (AUTO) 15.1 % (20.0-45.0); MEAN CORPUSCULAR HEMOGLOBIN 31.2 PG (27.0-31.0); MEAN CORPUSCULAR HGB CONC 30.8 G/DL (32.0-36.0); MEAN CORPUSCULAR VOLUME 101 FL (80-99); MEAN PLATELET VOLUME 11.2 FL (6.5-10.1); MONOCYTES % (AUTO) 6.3 % (1.0-10.0); NEUTROPHILS % (AUTO) 77.4 % (45.0-75.0); PLATELET COUNT 206 K/UL (150-450); RED BLOOD COUNT 3.76 M/UL (4.20-5.40); RED CELL DISTRIBUTION WIDTH 18.5 % (11.6-14.8); WHITE BLOOD COUNT 8.5 K/UL (4.8-10.8)
[2017-05-18 08:09] VITALS: BP 111/69
[2017-05-18] MEDS: Docusate 100mg/10ml Liq GT SCH ×3 (08:41→18:39)
[2017-05-18] MEDS: Heparin 5000 units/ml inj SUBQ SCH (08:43)
--- NOTE | 2017-05-18 10:11 | Infectious Diseases Prog Note ---
Assessment/Plan Assessment/Plan ASSESSMENT: The patient is a 57-year-old female with: Pyuria/possible urinary tract infection, UCx: Kleb , Sp Rx Lethargy Hypertension Status post trach that was removed on 05/07/2017. GERD. Diabetes. Schizophrenia/bipolar disorder PLAN: monitor Pt off of AB Rx 05/12SP Levaquin x 1 05/12 IV Zosyn d# 3 / 3 Monitor CBC Monitor BMP Subjective Constitutional: Denies: no symptoms, fever, chills, fatigue, anorexia, drenching sweats, other Allergies: Coded Allergies: No Known Allergies (Unverified , 05/09/17) Objective Vital Signs Last 24 Hour Vital Signs Date Time Temp Pulse Resp B/P (MAP) Pulse Ox O2 Delivery O2 Flow Rate FiO2 05/18/17 08:53 95 05/18/17 08:09 97.3 111 21 111/69 97 Room Air 05/18/17 04:00 97.8 95 20 121/84 100 Room Air 05/18/17 00:00 97.7 97 20 127/87 97 Room Air 05/17/17 20:00 98.1 104 20 131/81 95 Room Air 05/17/17 16:00 98.2 100 20 127/74 97 Room Air 05/17/17 12:00 97.7 107 20 139/75 98 Room Air Height (Feet): 5 Height (Inches): 2.00 Weight (Pounds): 170 HEENT: anicteric Respiratory/Chest: no respiratory distress Cardiovascular: regular rhythm Abdomen: no organomegaly Laboratory Tests Test 05/18/17 05:10 White Blood Count 8.5 K/UL (4.8-10.8) Red Blood Count 3.76 M/UL (4.20-5.40) L Hemoglobin 11.7 G/DL (12.0-16.0) L Hematocrit 38.1 % (37.0-47.0) Mean Corpuscular Volume 101 FL (80-99) H Mean Corpuscular Hemoglobin 31.2 PG (27.0-31.0) H Mean Corpuscular Hemoglobin Concent 30.8 G/DL (32.0-36.0) L Red Cell Distribution Width 18.5 % (11.6-14.8) H Platelet Count 206 K/UL (150-450) Mean Platelet Volume 11.2 FL (6.5-10.1) H Neutrophils (%) (Auto) 77.4 % (45.0-75.0) H Lymphocytes (%) (Auto) 15.1 % (20.0-45.0) L Monocytes (%) (Auto) 6.3 % (1.0-10.0) Eosinophils (%) (Auto) 0.1 % (0.0-3.0) Basophils (%) (Auto) 1.1 % (0.0-2.0) Sodium Level 150 MMOL/L (136-145) H Potassium Level 3.5 MMOL/L (3.5-5.1) Chloride Level 114 MMOL/L (98-107) H Carbon Dioxide Level 32 MMOL/L (21-32) Anion Gap 4 mmol/L (5-15) L Blood Urea Nitrogen 20 mg/dL (7-18) H Creatinine 1.0 MG/DL (0.55-1.30) Estimat Glomerular Filtration Rate 56.8 mL/min (>60) Glucose Level 112 MG/DL (74-106) H Calcium Level 10.3 MG/DL (8.5-10.1) H Current Medications Medications (Trade) Dose Ordered Sig/Robert Route PRN Reason Start Time Stop Time Status Last Admin Dose Admin Chlorhexidine Gluconate (Karley-Hex 2%) 1 applic DAILY@1999 TOPIC 05/13/17 20:00 06/12/17 19:59 05/17/17 20:16 Dextrose (Dextrose 50%) STAT PRN IV Hypoglycemia 05/10/17 02:30 06/09/17 02:29 Diphenhydramine HCl (Benadryl) 25 mg Q6H PRN IVP Itching 05/16/17 11:00 06/15/17 10:59 05/16/17 11:03 Docusate Sodium (Colace) 100 mg THREE TIMES A DAY GT 05/16/17 18:00 06/15/17 17:59 05/18/17 08:41 Heparin Sodium (Porcine) (Heparin 5000 units/ml) 5,000 units EVERY 12 HOURS SUBQ 05/10/17 09:00 06/09/17 08:59 05/18/17 08:43 Insulin Aspart (NovoLOG) BEFORE MEALS AND HS SUBQ 05/10/17 06:30 06/09/17 06:29 05/18/17 06:14 [place] Carbonate ([place] Carbonate) 600 mg BEDTIME ORAL 05/10/17 21:00 06/09/17 08:59 05/17/17 20:17 Ondansetron HCl (Zofran) 4 mg Q6H PRN IVP Nausea & Vomiting 05/10/17 00:00 06/09/17 00:00 Polyethylene Glycol (Miralax) 17 gm BEDTIME ORAL 05/10/17 21:00 06/09/17 20:59 05/17/17 20:16 Promethazine HCl/ Codeine (Phenergan with Codeine) 5 ml Q4H PRN ORAL For Cough 05/15/17 09:45 06/14/17 09:44 05/15/17 10:03 Quetiapine Fumarate (SEROquel) 300 mg BEDTIME ORAL 05/14/17 21:00 06/13/17 20:59 05/17/17 20:17 CHIQUI ROONEY M.D. May 18, 2017 10:11
--- NOTE | 2017-05-18 10:33 | GI Progress Note ---
Assessment/Plan Problems: (1) Dehydration ICD Codes: E86.0 - Dehydration SNOMED: 61953053 (2) Gastrostomy tube dysfunction ICD Codes: K94.23 - Gastrostomy malfunction SNOMED: 417918015 (3) Failure to thrive in adult ICD Codes: R62.7 - Adult failure to thrive SNOMED: 532745600 (4) Anemia ICD Codes: D64.9 - Anemia, unspecified SNOMED: 315188673 Qualifiers: Qualified Codes: D64.9 - Anemia, unspecified (5) Proteinuria ICD Codes: R80.9 - Proteinuria, unspecified SNOMED: 90104552 Qualifiers: Qualified Codes: R80.9 - Proteinuria, unspecified Status: stable Status Narrative Discussed with Dr. Elizabeth. Assessment/Plan ST evaluation for PO grat GT changed 2nd time, patient pulled. >> apply abdominal binder GTFs per dietary, tolerating frequent turn q2-4 hours OB stool r/o GI bleed monitor H&H, prn transfusions bowel regime electrolyte correction ppi fu labs dc planning Subjective Subjective limited Objective Last 24 Hour Vital Signs Date Time Temp Pulse Resp B/P (MAP) Pulse Ox O2 Delivery O2 Flow Rate FiO2 05/18/17 08:53 95 05/18/17 08:09 97.3 111 21 111/69 97 Room Air 05/18/17 04:00 97.8 95 20 121/84 100 Room Air 05/18/17 00:00 97.7 97 20 127/87 97 Room Air 05/17/17 20:00 98.1 104 20 131/81 95 Room Air 05/17/17 16:00 98.2 100 20 127/74 97 Room Air 05/17/17 12:00 97.7 107 20 139/75 98 Room Air Laboratory Tests Test 05/18/17 05:10 White Blood Count 8.5 K/UL (4.8-10.8) Red Blood Count 3.76 M/UL (4.20-5.40) L Hemoglobin 11.7 G/DL (12.0-16.0) L Hematocrit 38.1 % (37.0-47.0) Mean Corpuscular Volume 101 FL (80-99) H Mean Corpuscular Hemoglobin 31.2 PG (27.0-31.0) H Mean Corpuscular Hemoglobin Concent 30.8 G/DL (32.0-36.0) L Red Cell Distribution Width 18.5 % (11.6-14.8) H Platelet Count 206 K/UL (150-450) Mean Platelet Volume 11.2 FL (6.5-10.1) H Neutrophils (%) (Auto) 77.4 % (45.0-75.0) H Lymphocytes (%) (Auto) 15.1 % (20.0-45.0) L Monocytes (%) (Auto) 6.3 % (1.0-10.0) Eosinophils (%) (Auto) 0.1 % (0.0-3.0) Basophils (%) (Auto) 1.1 % (0.0-2.0) Sodium Level 150 MMOL/L (136-145) H Potassium Level 3.5 MMOL/L (3.5-5.1) Chloride Level 114 MMOL/L (98-107) H Carbon Dioxide Level 32 MMOL/L (21-32) Anion Gap 4 mmol/L (5-15) L Blood Urea Nitrogen 20 mg/dL (7-18) H Creatinine 1.0 MG/DL (0.55-1.30) Estimat Glomerular Filtration Rate 56.8 mL/min (>60) Glucose Level 112 MG/DL (74-106) H Calcium Level 10.3 MG/DL (8.5-10.1) H Height (Feet): 5 Height (Inches): 2.00 Weight (Pounds): 170 General Appearance: no apparent distress Cardiovascular: normal rate Respiratory/Chest: normal breath sounds, no respiratory distress Abdominal Exam: normal bowel sounds, non tender, soft, GT site - c/d/i Extremities: non-tender Eva Alcocer N.P. May 18, 2017 10:33
[2017-05-18 11:59] VITALS: BP 145/86
--- NOTE | 2017-05-18 12:12 | Nephrology Progress Note ---
Assessment/Plan Problem List: (1) ATN (acute tubular necrosis) (2) Dehydration (3) UTI (urinary tract infection) (4) Anemia Assessment status: (1) Acte renal failure- dehydration- not been receiving enough free water due to poor iv line, now has PICC (2) Schizo-affective schizophrenia (3) Gastrostomy tube dysfunction (4) UTI (urinary tract infection) (5) Failure to Thrive (6) Anemia Plan Plan: PICC line Stop D5 todays labs reviewed, Na lower K Phos IV as needed hydrate- Monitor lytes- Urine studies- per Psych Subjective ROS Limited/Unobtainable: No Constitutional: Reports: malaise Objective Objective Last 24 Hour Vital Signs Date Time Temp Pulse Resp B/P (MAP) Pulse Ox O2 Delivery O2 Flow Rate FiO2 05/18/17 11:59 98.5 104 20 145/86 97 Room Air 05/18/17 08:53 95 05/18/17 08:09 97.3 111 21 111/69 97 Room Air 05/18/17 04:00 97.8 95 20 121/84 100 Room Air 05/18/17 00:00 97.7 97 20 127/87 97 Room Air 05/17/17 20:00 98.1 104 20 131/81 95 Room Air 05/17/17 16:00 98.2 100 20 127/74 97 Room Air Laboratory Tests 05/18/17 05:10: White Blood Count 8.5, Red Blood Count 3.76L, Hemoglobin 11.7L, Hematocrit 38.1 , Mean Corpuscular Volume 101H, Mean Corpuscular Hemoglobin 31.2H, Mean Corpuscular Hemoglobin Concent 30.8L, Red Cell Distribution Width 18.5H, Platelet Count 206, Mean Platelet Volume 11.2H, Neutrophils (%) (Auto) 77.4H, Lymphocytes (%) (Auto) 15.1L, Monocytes (%) (Auto) 6.3, Eosinophils (%) (Auto) 0.1, Basophils (%) (Auto) 1.1, Sodium Level 150H, Potassium Level 3.5, Chloride Level 114H, Carbon Dioxide Level 32, Anion Gap 4L, Blood Urea Nitrogen 20H, Creatinine 1.0, Estimat Glomerular Filtration Rate 56.8, Glucose Level 112H, Calcium Level 10.3H Height (Feet): 5 Height (Inches): 2.00 Weight (Pounds): 170 General Appearance: no apparent distress Objective no other changes ATILIO GARCIA May 18, 2017 12:12
--- NOTE | 2017-05-18 16:03 | Pulmonology Progress Note ---
Assessment/Plan Problems: (1) ATN (acute tubular necrosis) (2) Schizo-affective schizophrenia (3) Gastrostomy tube dysfunction (4) UTI (urinary tract infection) Assessment/Plan looks very good no complains GI f/u Renal consult appreciated check electrolytes dc planning in progress Subjective ROS Limited/Unobtainable: No Constitutional: Reports: no symptoms HEENT: Repors: no symptoms Respiratory: Reports: no symptoms Allergies: Coded Allergies: No Known Allergies (Unverified , 05/09/17) Objective Last 24 Hour Vital Signs Date Time Temp Pulse Resp B/P (MAP) Pulse Ox O2 Delivery O2 Flow Rate FiO2 05/18/17 11:59 98.5 104 20 145/86 97 Room Air 05/18/17 08:53 95 05/18/17 08:09 97.3 111 21 111/69 97 Room Air 05/18/17 04:00 97.8 95 20 121/84 100 Room Air 05/18/17 00:00 97.7 97 20 127/87 97 Room Air 05/17/17 20:00 98.1 104 20 131/81 95 Room Air Objective General Appearance: WD/WN, no apparent distress Lines, tubes and drains: peripheral, HEENT: normocephalic, anicteric Neck: non-tender, normal alignment Respiratory/Chest: chest wall non-tender, lungs clear Cardiovascular/Chest: normal rate, regular rhythm Abdomen: non tender, soft Genitourinary/Rectal: normal genital exam, normal rectal exam Extremities: normal range of motion, non-pitting Laboratory Tests 05/18/17 05:10: White Blood Count 8.5, Red Blood Count 3.76L, Hemoglobin 11.7L, Hematocrit 38.1 , Mean Corpuscular Volume 101H, Mean Corpuscular Hemoglobin 31.2H, Mean Corpuscular Hemoglobin Concent 30.8L, Red Cell Distribution Width 18.5H, Platelet Count 206, Mean Platelet Volume 11.2H, Neutrophils (%) (Auto) 77.4H, Lymphocytes (%) (Auto) 15.1L, Monocytes (%) (Auto) 6.3, Eosinophils (%) (Auto) 0.1, Basophils (%) (Auto) 1.1, Sodium Level 150H, Potassium Level 3.5, Chloride Level 114H, Carbon Dioxide Level 32, Anion Gap 4L, Blood Urea Nitrogen 20H, Creatinine 1.0, Estimat Glomerular Filtration Rate 56.8, Glucose Level 112H, Calcium Level 10.3H Current Medications Medications (Trade) Dose Ordered Sig/Robert Route PRN Reason Start Time Stop Time Status Last Admin Dose Admin Chlorhexidine Gluconate (Karley-Hex 2%) 1 applic DAILY@2000 TOPIC 05/13/17 20:00 06/12/17 19:59 05/17/17 20:16 Dextrose (Dextrose 50%) STAT PRN IV Hypoglycemia 05/10/17 02:30 06/09/17 02:29 Diphenhydramine HCl (Benadryl) 25 mg Q6H PRN IVP Itching 05/16/17 11:00 06/15/17 10:59 05/16/17 11:03 Docusate Sodium (Colace) 100 mg THREE TIMES A DAY GT 05/16/17 18:00 06/15/17 17:59 05/18/17 12:32 Heparin Sodium (Porcine) (Heparin 5000 units/ml) 5,000 units EVERY 12 HOURS SUBQ 05/10/17 09:00 06/09/17 08:59 05/18/17 08:43 Insulin Aspart (NovoLOG) BEFORE MEALS AND HS SUBQ 05/10/17 06:30 06/09/17 06:29 05/18/17 12:31 [place] Carbonate ([place] Carbonate) 600 mg BEDTIME ORAL 05/10/17 21:00 06/09/17 08:59 05/17/17 20:17 Ondansetron HCl (Zofran) 4 mg Q6H PRN IVP Nausea & Vomiting 05/10/17 00:00 06/09/17 00:00 Polyethylene Glycol (Miralax) 17 gm BEDTIME ORAL 05/10/17 21:00 06/09/17 20:59 05/17/17 20:16 Promethazine HCl/ Codeine (Phenergan with Codeine) 5 ml Q4H PRN ORAL For Cough 05/15/17 09:45 06/14/17 09:44 05/15/17 10:03 Quetiapine Fumarate (SEROquel) 300 mg BEDTIME ORAL 05/14/17 21:00 06/13/17 20:59 05/17/17 20:17 ANYI ALEGRIA May 18, 2017 16:03
[2017-05-18 16:16] VITALS: BP 137/60
--- NOTE | 2017-05-18 23:56 | General Progress Note ---
Assessment/Plan Status: stable Assessment/Plan encephalopathy agitated seroquel 300mg qhs lithoum 600mg Subjective Neurologic/Psychiatric: Reports: anxiety, depressed, emotional problems Allergies: Coded Allergies: No Known Allergies (Unverified , 05/09/17) Subjective the pt was calm confused attempted to pull on Simmons Objective Last 24 Hour Vital Signs Date Time Temp Pulse Resp B/P (MAP) Pulse Ox O2 Delivery O2 Flow Rate FiO2 05/18/17 16:16 98.6 98 21 137/60 95 Room Air 05/18/17 11:59 98.5 104 20 145/86 97 Room Air 05/18/17 08:53 95 05/18/17 08:09 97.3 111 21 111/69 97 Room Air 05/18/17 04:00 97.8 95 20 121/84 100 Room Air 05/18/17 00:00 97.7 97 20 127/87 97 Room Air Intake and Output 05/18/17 05/19/17 19:00 07:00 Intake Total 820 ml Output Total 1000 ml Balance 820 ml -1000 ml Free Water 100 ml Tube Feeding 720 ml Output Urine Total 1000 ml Laboratory Tests 05/18/17 05:10: White Blood Count 8.5, Red Blood Count 3.76L, Hemoglobin 11.7L, Hematocrit 38.1 , Mean Corpuscular Volume 101H, Mean Corpuscular Hemoglobin 31.2H, Mean Corpuscular Hemoglobin Concent 30.8L, Red Cell Distribution Width 18.5H, Platelet Count 206, Mean Platelet Volume 11.2H, Neutrophils (%) (Auto) 77.4H, Lymphocytes (%) (Auto) 15.1L, Monocytes (%) (Auto) 6.3, Eosinophils (%) (Auto) 0.1, Basophils (%) (Auto) 1.1, Sodium Level 150H, Potassium Level 3.5, Chloride Level 114H, Carbon Dioxide Level 32, Anion Gap 4L, Blood Urea Nitrogen 20H, Creatinine 1.0, Estimat Glomerular Filtration Rate 56.8, Glucose Level 112H, Calcium Level 10.3H Height (Feet): 5 Height (Inches): 2.00 Weight (Pounds): 170 General Appearance: no apparent distress, alert, confused Neurologic: alert, disoriented, unresponsive, depressed affect Avery Dang M.D. May 18, 2017 23:56
--- NOTE | 2017-05-19 17:20 | Discharge Summary ---
Discharge Summary Hospital Course Date of Admission May 09, 2017 at 22:10 Date of Discharge May 18, 2017 at 19:10 Admitting Diagnosis dehydration HPI Salome Hernandez is a 57 year old female who was admitted on May 09, 2017 at 22:10 for Dehydration Hospital Course [id number] Discharge Discharge Disposition Patient was discharged to SNF/Subacute Facility(03) Discharge Diagnoses: Mitzy López NP May 19, 2017 17:20
--- NOTE | 2017-05-20 00:16 | Discharge Summary 2 SIG ---
DATE OF ADMISSION: 05/09/2017 DATE OF DISCHARGE: 05/18/2017 CONSULTANTS: 1. Brandon Jacobs M.D. 2. Hunter Fajardo M.D. 3. Nader Elizabeth M.D. 4. Avery Dang M.D. BRIEF HOSPITAL COURSE: The patient is a 57-year-old female with a history of recent tracheostomy, schizophrenia, and dysphagia with PEG. Tracheostomy was removed on 05/07/2017. She presented to ED, as G-tube was pulled out and BUN and sodium was elevated. At ED, ER physician was able to reinsert the feeding tube. Placement was confirmed with x-ray. Blood work showed hypernatremia and evidence of dehydration. Creatinine was elevated to 1.4. Sodium was 159 and chloride 122. She was admitted to medical floor for dehydration and was given IV hydration with D5 water. UA with 10 to 15 white blood cells. Alkaline phosphatase was 142. She was started empirically on IV Zosyn. Tube feedings were started. She eventually pulled out the G-tube again. She was placed on abdominal binder. G-tube was changed second time. She has not been receiving enough free water due to poor intravenous line and episodes of refusal of care. A PICC line was inserted on 05/13/2017. She was seen by psychiatrist and was given Seroquel 300 mg at bedtime and lithium 600 mg. The patient was agitated. [place] level was 1.2. Urine culture showed growth of Klebsiella pneumoniae. She was given three days of IV Zosyn. Venous duplex was negative for DVT. She was eventually [facility] back to [facility]. FINAL DIAGNOSES: 1. Acute renal failure with dehydration and acute tubular necrosis. 2. Urinary tract infection. 3. Anemia. 4. Schizoaffective schizophrenia. 5. Gastrostomy tube dysfunction status post replacement. 6. Failure to thrive. 7. Encephalopathy. 8. Agitation. 9. Hypertension. 10. Status post tracheostomy that was removed on 05/07/2017. 11. Gastroesophageal reflux disease. 12. Diabetes. 13. Schizophrenia/bipolar disorder. DISPOSITION: The patient was discharged to [facility]. DISCHARGE MEDICATIONS: Refer to medication list. Fanny Kaba M.D. I have been assigned to dictate discharge summary on this account and I was not involved in the patient's management. Mitzy López N.P. DR: DOMINGA JOB#: [id number] CC: VERNA
== END 2017-05-18 19:10 | DRG 951 ==
LOC: EDBD 21:20 → EMR 21:39 → 3E 22:10 → EDBEDREQ 22:53 → 3E 23:50 → 4E 05-11 14:41
PROC: 0DH67UZ Insertion of Feeding Device into Stomach, Via Natural or Artificial Opening (ICD-10-PCS; principal; 2017-05-09)
PROC: 02HV33Z Insertion of Infusion Device into Superior Vena Cava, Percutaneous Approach (ICD-10-PCS; 2017-05-13)
PROC: B518ZZA Fluoroscopy of Superior Vena Cava, Guidance (ICD-10-PCS; 2017-05-13)
DX: N17.0 Acute kidney failure with tubular necrosis (principal); G93.40 Encephalopathy, unspecified; K94.23 Gastrostomy malfunction; E87.0 Hyperosmolality and hypernatremia; E86.0 Dehydration; N39.0 Urinary tract infection, site not specified; R62.7 Adult failure to thrive; D64.9 Anemia, unspecified; R80.9 Proteinuria, unspecified; F25.0 Schizoaffective disorder, bipolar type; F31.9 Bipolar disorder, unspecified
CPT/HCPCS: 36415; 36569; 43760; 74000; 76937; 80048; 80053; 80178; 81001; 82607; 82746; 82962; 83036; 83735; 84100; 84300; 84443; 84550; 85025; 85651; 86140; 87081; 87086; 87181; 93970; 99285; J1815